=== PATIENT | female | born 1940 | race Caucasian/White ===

== ENCOUNTER 2019-07-27 14:34 | Inpatient (IN) | payer OTHER ==
--- NOTE | 2019-07-27 15:21 | PDOC ---
History of Present Illness - General Chief Complaint: Abnormal Lab Results (Outside) Stated Complaint: FOLLOW UP Time Seen by Provider: 07/27/19 15:21 - History of Present Illness Initial Comments: 07/27/19 15:56 79 year old woman with a history of HTN, recent L knee replacement (07/14/19) placed on coumadin post op who presents with reported elevated INR to 15. The patient denies any symptoms of chest pain, shortness fof breath, fevers, recent falls, trauma, easy bruising or any concerning symptoms. She was on 4mg of coumadin QHS since 07/14/19 and it was reduced to 3mg QHS 3 days ago. The patient has a caregivers homecare that comes and checks her INR and it was noted to be elevated yesterday. SHe has no other complaints. Surgeon: Dr. Chen at [facility] ROS GENERAL/CONSTITUTIONAL: No fever or chills. No weakness. HEAD, EYES, EARS, NOSE AND THROAT: No sore throat. CARDIOVASCULAR: No chest pain or shortness of breath RESPIRATORY: No cough, wheezing, or hemoptysis. GASTROINTESTINAL: No nausea, vomiting, diarrhea or constipation. GENITOURINARY: No dysuria, frequency, or change in urination. MUSCULOSKELETAL: No joint or muscle swelling or pain. No neck or back pain. SKIN: No rash NEUROLOGIC: No headache, vertigo, loss of consciousness, or change in strength/ sensation. PE GENERAL: Awake, alert, and fully oriented, in no acute distress HEAD: No signs of trauma, normocephalic, atraumatic EYES: EOMI, sclera anicteric, conjunctiva clear ENT: oropharynx clear without exudates. Moist mucosa NECK: Normal ROM, supple LUNGS: No distress, speaks full sentences, clear to auscultation bilaterally HEART: Regular rate and rhythm, normal S1 and S2, no murmurs, rubs or gallops, peripheral pulses normal and equal bilaterally. ABDOMEN: Soft, nontender. No guarding, no rebound. No masses EXTREMITIES : + L knee surgical incision warm to touch, erythematous, no dehiscence of wound, no purulent drainage NEUROLOGICAL: Cranial nerves II through XII grossly intact. Normal speech, no focal sensorimotor deficits SKIN: Warm, Dry, normal turgor, no rashes or lesions noted MDM DDX including but not limited to: supratherapeutic INR post-op infection ED Course: Patient with leukocytosis, evaluate for infection, likely 2/2 surgical site as it is warm and erythematous Will contact operating surgeon, if risk of infection, join may require surgical washout r/o pna vs uti INR > [address] Chen's ([phone]) covering physician was contacted, recommended ESR and CRP and will call back Call placed to Dr. Chen who feels that wbc, and warmth are within expectations for 2 weeks post-op. Recommends normalization of INR then transfer to S, otherwise our Orthopedics team can evaluate the patient. Does not recommend antibiotics at this time. We will page our Orthopedics Consult and seek recommendations regarding further care Discussed case with Orthopedics, who agree that these changes are expected post- op and will come evaluate the patient Plan for admission for INR normalization Narda Lilly, PGY2 Emergency Medicine 07/27/19 18:46 07/27/19 18:46 Past History - Past Medical History Allergies/Adverse Reactions: Allergies Allergy/AdvReac Type Severity Reaction Status Date / Time aspirin Allergy Severe Vomiting Verified 07/27/19 17:45 Penicillins Allergy Severe Rash Verified 07/27/19 17:45 NSAIDS (Non-Steroidal Allergy Intermediate RECTAL Verified 07/27/19 17:45 Anti-Inflamma BLEEDING azithromycin [From Zithromax] Allergy Mild STOMACH Verified 07/27/19 17:45 UPSET Home Medications: Ambulatory Orders RX: Amlodipine Besylate [Norvasc -] 5 mg PO DAILY 02/09/13 RX: Carvedilol 25 mg PO BID 02/09/13 RX: Lisinopril/Hydrochlorothiazide [Zestoretic 20-25 Tablet] 1 each PO BID 02/09 RX: Doxazosin Mesylate 8 mg PO DAILY 07/27/19 RX: Pantoprazole Sodium 40 mg PO DAILY 07/27/19 Anemia: No Asthma: No Cancer: No Cardiac Disorders: No CVA: No COPD: No CHF: No Dementia: No Diabetes: No GI Disorders: No Disorders: No HTN: Yes Hypercholesterolemia: No Liver Disease: No Seizures: No Thyroid Disease: No - Surgical History Abdominal Surgery: Yes Appendectomy: Yes Orthopedic Surgery: Yes (RIGHT KNEE ARTHROSCOPY) - Immunization History Immunization Up to Date: No - Psycho Social/Smoking Cessation Hx Smoking History: Never smoked Have you smoked in the past 12 months: No Information on smoking cessation initiated: No Hx Alcohol Use: No Drug/Substance Use Hx: No Substance Use Type: None Hx Substance Use Treatment: No *Physical Exam - Vital Signs Last Vital Signs Temp Pulse Resp BP Pulse Ox 98.1 F 80 16 95/47 L 95 07/27/19 14:51 07/27/19 14:51 07/27/19 14:51 07/27/19 14:51 07/27/19 14:51 Vital Signs - Vital Signs #1 Blood Pressure: 135/57 BP Location: Left Arm ED Treatment Course - LABORATORY CBC & Chemistry Diagram: 07/27/19 15:48 07/27/19 15:48 Discharge - Discharge Information Condition: Stable - Follow up/Referral - Patient Discharge Instructions - Post Discharge Activity
[2019-07-27] MEDS ORDERED: SODIUM CHLORIDE 1,000 ML IV SCH (15:45)
[2019-07-27 15:58] LABS: BASO % 0.3 % (0-2.0); EOS % 1.3 % (0-4.5); HEMATOCRIT 35.9 % (32.4-45.2); HEMOGLOBIN 11.5 GM/dL (10.7-15.3); LYMPH % 4.3 % (8-40); MCH 29.5 pg (25.7-33.7); MCHC 32.1 g/dl (32.0-36.0); MEAN CELL VOLUME 91.8 fl (80-96); MEAN PLT VOLUME 8.7 fl (7.5-11.1); MONO % 4.2 % (3.8-10.2); NEUT % 89.9 % (42.8-82.8); PLATELET COUNT 502 K/MM3 (134-434); RBC 3.91 M/mm3 (3.60-5.2); RDW 14.8 % (11.6-15.6); WHITE BLOOD COUNT 15.6 K/mm3 (4.0-10.0)
[2019-07-27 16:12] LABS: ACTIVATED PTT 73.4 SECONDS (25.2-36.5)
[2019-07-27 16:15] LABS: INR > 15.00 (0.83-1.09)
[2019-07-27] MEDS ORDERED: PHYTONADIONE 5 MG TABLET PO ONE (16:16)
[2019-07-27 16:24] LABS: ALBUMIN 3.1 g/dl (3.4-5.0); BILIRUBIN,TOTAL 0.4 mg/dL (0.2-1); BLOOD UREA NITROGEN 17.5 mg/dL (7-18); CALCIUM 8.6 mg/dL (8.5-10.1); CREATININE 1.1 mg/dL (0.55-1.3); POTASSIUM 3.7 mmol/L (3.5-5.1); TOT PROT 6.6 g/dl (6.4-8.2)
[2019-07-27] MEDS ORDERED: PHYTONADIONE 5 MG TABLET ONE (16:25)
[2019-07-27 16:27] LABS: PLATELET ESTIMATE INCREASED
--- NOTE | 2019-07-27 16:49 | PDOC ---
Attending Attestation - Resident Resident Name: Narda Lilly - ED Attending Attestation I have performed the following: I have examined & evaluated the patient, The case was reviewed & discussed with the resident, I agree w/resident's findings & plan, Exceptions are as noted - HPI HPI: 07/27/19 16:53 79y F recent history of L total knee in early jun - but she states that she was started on Coumadin during her hospitalization, she has been having regular INR checks and had her Coumadin dosage reduced at some point, over she was told that her INR was significantly elevated and to go to the ER to be evaluated. The patient denies any history of bleeding including rectal bleeding, vaginal bleeding. Patient endorses a very mild headache, states that she thinks she is just hungry she denies any associated vision changes, focal numbness, tingling, weakness. she denies any chest pain, shortness of breath, dyspnea exertion, abdominal pain , nausea, vomiting. Patient has no history of coagulopathy, DVTs or PEs. General GENERAL: The patient is awake, alert, and fully oriented, Nontoxic - in no acute distress. HEAD: Normocephalic, atraumatic. EYES: extraocular movements intact, sclera anicteric, conjunctiva clear. Pupils 2mm and symmetric ENT: Normal voice, Moist mucous membranes. NECK: Normal range of motion, supple ABDOMEN: Soft, nontender, No guarding, no rebound. No CVA tenderness EXTREMITIES: Normal range of motion, no edema. Warmth noted on the R knee with mild ecchymosis/erythema, no significant induration noted. No discharge noted. NEUROLOGICAL: No facial assymetry, Normal speech, moving all 4 extremity spontaneously and symmetrically PSYCH: Normal mood, normal affect. SKIN: Warm, Dry, normal turgor, We will treat the patient's elevated INR with vitamin K As patient has a mild headache will obtain a CT of the head to screen for hemorrhage Will discuss with the patient's surgeon regarding the warmth of her leg and possibility of infection - Physicial Exam PE: 07/28/19 02:25 see above - Medical Decision Making 07/27/19 18:[address] Chen - recommendd treating the pts elevate INR - and having our orthopodic consultation eval the knee to see if it is infected, but as pt is not havin significant pain/swelling he tihnks this may just be normal post operative course (incluing elevated CRP). He would also not recommend starting antibiotics at this time. will admit for further management of elevated INR
[2019-07-27 16:51] LABS: EPI CELLS 7.5 /HPF (0-5/HPF); HYALINE CASTS 53 /lpf (0-8); PH,URINE 5.5 (5.0-8.0); URINE APPEARANCE CLOUDY; URINE BACTERIA 2.1 /hpf (NEGATIVE); URINE BILIRUBIN NEGATIVE (NEGATIVE); URINE COLOR YELLOW; URINE GLUCOSE (UA) NEGATIVE (NEGATIVE); URINE KETONE TRACE (NEGATIVE); URINE LEUK ESTERASE TRACE (NEGATIVE); URINE NITRITE NEGATIVE (NEGATIVE); URINE PROTEIN 2+ (NEGATIVE); URINE WBC 13 /hpf (0-5)
[2019-07-27] MEDS ORDERED: ACETAMINOPHEN 1000 MG/100 ML VIAL (NON FORMULARY) IVPB ONE (17:23)
[2019-07-27 17:32] LABS: URINE RBC 10.6 /hpf (0-4)
[2019-07-27] MEDS ORDERED: ACETAMINOPHEN INJECTION 100 ML IVPB ONE (17:37)
[2019-07-27 18:11] LABS: ERYTHROCYTE SEDIMENTATION RATE 34 mm/hr (0-30)
--- NOTE | 2019-07-27 19:11 | PN ---
Teaching Attending Note Name of Resident: Jennifer Yip ATTENDING PHYSICIAN STATEMENT I saw and evaluated the patient. I reviewed the resident's note and discussed the case with the resident. I agree with the resident's findings and plan as documented. SUBJECTIVE: Patient is a 79 year old woman with a PMH of Penicillin allergy, HTN, and Recent left knee replacement (07/14/19) on coumadin postop who presents with elevated INR of 15. The patient denies any symptoms of chest pain, shortness fof breath, fevers, recent falls, trauma, easy bruising or any concerning symptoms. She was on 4 mg of coumadin q HS since 07/14/19 and it was reduced to 3 mg q HS 3 days ago. The patient has a day care home mother that comes and checks her INR and it was noted to be elevated yesterday. Patient denies any history of bleeding including rectal bleeding, vaginal bleeding. Denies vision changes, focal numbness, tingling, weakness, abdominal pain, nausea, vomiting, diarrhea or dysuria. Patient has no history of coagulopathy, DVTs or PEs. Denies tobacco , alcohol or illicit drug use. No recent travel. OBJECTIVE: Alert Vital Signs Period Temp Pulse Resp BP Sys/Almanzar Pulse Ox Last 24 Hr 98.1 F 76-80 16-16 95-136/47-96 95-97 HEENT: No Jaundice, eye redness or discharge, PERRLA, EOMI. Normocephalic, atraumatic. External ears are normal and hearing is grossly intact. No nasal discharge. Neck: Supple, nontender. No palpable adenopathy or thyromegaly. No JVD Chest: Good effort. Clear to auscultation and percussion. Heart: Regular. No S3, rub or murmur Abdomen: Not distended, soft, nontender and no HSM. No rebound or guarding. Normal bowel sounds. Ext: Peripheral pulses intact. Warmth over right knee and area of erythema. Leg edema. Skin: Warm and dry. No petechiae, rash or ecchymosis. Neuro: Alert. Oriented x3. CN 2-12 grossly intact. Sensation grossly intact in all four extremities and DTR are symmetric. Psych: Appropriate mood and affect. Good insight. Home Medications Medication Instructions Recorded Amlodipine Besylate [Norvasc -] 5 mg PO DAILY 02/09/13 Carvedilol 25 mg PO BID 02/09/13 Lisinopril/Hydrochlorothiazide 1 each PO BID 02/09/13 [Zestoretic 20-25 Tablet] Doxazosin Mesylate 8 mg PO DAILY 07/27/19 Pantoprazole Sodium 40 mg PO DAILY 07/27/19 Abnormal Lab Results 07/27/19 07/27/19 07/27/19 15:48 15:48 15:48 WBC 15.6 H Plt Count 502 H D Absolute Neuts (auto) 14.0 H Neutrophils % 89.9 H Neutrophils % (Manual) 87.0 H Lymphocytes % 4.3 L D Lymphocytes % (Manual) 4.0 L Monocytes % (Manual) 3 L ESR 34 H PT with INR 185.10 H INR > 15.00 H* PTT (Actin FS) 73.4 H Sodium 134 L Anion Gap 6 L Random Glucose 124 H AST 14 L C-Reactive Protein 9.2 H Albumin 3.1 L Urine Protein Urine Ketones 07/27/19 16:26 WBC Plt Count Absolute Neuts (auto) Neutrophils % Neutrophils % (Manual) Lymphocytes % Lymphocytes % (Manual) Monocytes % (Manual) ESR PT with INR INR PTT (Actin FS) Sodium Anion Gap Random Glucose AST C-Reactive Protein Albumin Urine Protein 2+ H Urine Ketones Trace H ASSESSMENT AND PLAN: 1. Supratherapeutic INR - No evidence of acute bleeding. Coumadin being held and got 5 mg of Vitamin K PO. Patient seen by Ortho an xray is recommended but no antibiotics at this time. Will monitor WBC and INR. CXR shows cardiomegaly and hilar prominence. Get ECHO. EKG shows NSR, LAE, LVH and nonspecific ST abnormality. No acute abnormality on head CT. Will continue comprehensive care for all of patients comorbid conditions. 2. Hypoalbuminemia - Possibly due to combined effects of proteinuria, malnutrition and inflammation associated with comorbid chronic conditions. Will ensure adequate dietary protein intake and also consult sales and catering coordinator. 3. Obesity Counseled on the risks associated with obesity. Will provide patient all the necessary assistance, counseling and positive reinforcement to facilitate weight loss. Consult sales and catering coordinator. 4. Hypertension - Restart suitable outpatient antihypertensive drugs when clinically appropriate. Revise regimen to ensure [id number] excellent BP control and prenatal genetic counselor patient on the injurious effects of uncontrolled hypertension. Nonpharmacologic measures to control hypertension like weight loss , salt restriction and exercise discussed. Importance of adherence to treatment regimen and attainment of normotension emphasized. 5. DVT prophylaxis - Supratherapeutic coumadin 6. Advance directives - Full code
--- NOTE | 2019-07-27 19:38 | CONSULT ---
Consult - text type - Consultation Consultation Note: ORTHOPEDIC SURGERY CONSULTATION NOTE Department of Orthopedic Surgery HISTORY OF PRESENT ILLNESS Ms. Garner is a 79 year old female with a pmhx of HTN who presents to [facility] ER s /p left total knee replacement [address] Thompson at [facility]; She is here today with a high INR > 15 after being discharged with coumadin post operatively. The orthopedic service was consulted to evaluate wound. The patient denies any injury. The patient states she has had a decrease in swelling and erythema since the surgery. Denies any other injuries. Denies numbness, tingling or other constitutional complaints. Denies fever/chills or drainage of wound; Denies SOB, CP or CANTU. Denies tobacco use, drug use, alcohol abuse. The patient lives with family and uses no assistive devices at baseline. FAMILY HISTORY non-contributory REVIEW OF SYMPTOMS A twelve-point review of systems was performed and was negative except as noted in HPI. PHYSICAL EXAM Constitutional: Alert and oriented to person, place, and time. Appears well- developed and well-nourished. No acute distress, appropriate mood and affect. Left Lower Extremity: Skin warm, dry, and intact; no lesions, rashes or ulcers noted. The incision is intact and healing. There is mild incisional erythema with no drainage or signs of active infection. There are no signs or symptoms of septic joint. Muscle mass equal and symmetric to contralateral side. No atrophy noted. No masses or significant effusions noted. No tenderness to palpation all joints; LROM 0-90 degres of the left knee secondary to stiffness due to knee replacement 2 weeks ago; She has no pain in her left knee with ROM; nontender throughout rest of extremity. No cords or calf tenderness; No significant calf/ankle edema. Full passive and active ROM of hip and ankle, free from pain. Joints stable with no pathologic laxity. EHL/TA/GS motor intact ; SILT distally; 2+ DP pulses; Cap refill brisk. Tone and reflexes normal. Social History Smoking history Never smoked Hx Alcohol Use No Allergies Allergy/AdvReac Type Severity Reaction Status Date / Time aspirin Allergy Severe Vomiting Verified 07/27/19 17:45 Penicillins Allergy Severe Rash Verified 07/27/19 17:45 NSAIDS (Non-Steroidal Allergy Intermediate RECTAL Verified 07/27/19 17:45 Anti-Inflamma BLEEDING azithromycin [From Zithromax] Allergy Mild STOMACH Verified 07/27/19 17:45 UPSET Vital Signs (last) Temp Pulse Resp BP Pulse Ox 98.1 F 76 16 135/57 L 97 07/27/19 14:51 07/27/19 18:40 07/27/19 18:40 07/27/19 18:50 07/27/19 18:40 Intake and Output 07/25/19 07/26/19 07/27/19 23:59 23:59 23:59 Other: Weight 165 lb Height 5 ft 1 in Body Mass Index (BMI) 31.1 Weight Measurement Method Est/Stated by Patient Laboratory 07/27/19 15:48 07/27/19 15:48 PT with INR 185.10 SEC (9.7-13.0) H 07/27/19 15:48 PTT (Actin FS) 73.4 SECONDS (25.2-36.5) H 07/27/19 15:48 IMAGING Left knee X-ray Pending ASSESSMENT AND PLAN Ms. Garner is a 79 year old female presenting s/p left total knee replacement approximately 2 weeks ago with an INR of > 15. We have agreed on the following plan: Pain control DVT ppx WBAT/Physical therapy Continue medical management Follow up radiographs of the left knee Follow up with Dr. Thompson (original orthopedic surgeon) upon discharge Will follow
--- NOTE | 2019-07-27 19:43 | HP ---
CHIEF COMPLAINT: Supratherapeutic INR PCP: None Orthopedic Surgeon: Dr. Chen ([facility]) Corporate Analyst: Dr. Ross HISTORY OF PRESENT ILLNESS: Ms. Garner is a 79 with PMH of HTN and recent L knee replacement on (07/14/19 ) who presents with supratherapeutic INR. Pt had L knee replacement [address] Chen at [facility]. Surgery went well with no perioperative complications and pt has been recovering well with no complaints. She was placed on 4mg coumadin post-op (for unknown reasons) and was arranged to have a VNS to check her INR. Pt's coumadin was decreased to 3mg 3 days ago. Pt's INR was reportedly elevated yesterday and she was told to come to the nearest ER. On arrival to ED, her INR was >15. Pt denies any falls, trauma, bleeding or easy bruising. She denies a hx of coagulopathy, DVs, or PEs. Has never been placed on warfarin or any AC's in the past. Pt has been recovering well from surgery and is able to ambulate with only mild "tightnes" in her knee. She states that swelling from the surgery has been improving. She denies ay chest pain, SOB, fevers, chills, nausea, vomiting. Recent Travel: denies PAST MEDICAL HISTORY: As per HPI PAST SURGICAL HISTORY: l knee replacement Social History: Smoking: denies Alcohol: denies Drugs: denies Allergies aspirin Allergy (Severe, Verified 07/27/19 17:45) Vomiting Penicillins Allergy (Severe, Verified 07/27/19 17:45) Rash NSAIDS (Non-Steroidal Anti-Inflamma Allergy (Intermediate, Verified 07/27/19 17: 45) RECTAL BLEEDING azithromycin [From Zithromax] Allergy (Mild, Verified 07/27/19 17:45) STOMACH UPSET HOME MEDICATIONS: Home Medications Medication Instructions Recorded Amlodipine Besylate [Norvasc -] 5 mg PO DAILY 02/09/13 Carvedilol 25 mg PO BID 02/09/13 Lisinopril/Hydrochlorothiazide 1 each PO BID 02/09/13 [Zestoretic 20-25 Tablet] Doxazosin Mesylate 8 mg PO DAILY 07/27/19 Pantoprazole Sodium 40 mg PO DAILY 07/27/19 REVIEW OF SYSTEMS CONSTITUTIONAL: Absent: fever, chills, diaphoresis, generalized weakness, malaise, loss of appetite, weight change HEENT: Absent: rhinorrhea, nasal congestion, throat pain, throat swelling, difficulty swallowing, mouth swelling, ear pain, eye pain, visual changes CARDIOVASCULAR: Absent: chest pain, syncope, palpitations, irregular heart rate, lightheadedness , peripheral edema RESPIRATORY: Absent: cough, shortness of breath, dyspnea with exertion, orthopnea, wheezing, stridor, hemoptysis GASTROINTESTINAL: Absent: abdominal pain, abdominal distension, nausea, vomiting, diarrhea, constipation, melena, hematochezia GENITOURINARY: Absent: dysuria, frequency, urgency, hesitancy, hematuria, flank pain, genital pain MUSCULOSKELETAL: Absent: myalgia, arthralgia, joint swelling, back pain, neck pain SKIN: Absent: rash, itching, pallor HEMATOLOGIC/IMMUNOLOGIC: Absent: easy bleeding, easy bruising, lymphadenopathy, frequent infections ENDOCRINE: Absent: unexplained weight gain, unexplained weight loss, heat intolerance, cold intolerance NEUROLOGIC: Absent: headache, focal weakness or paresthesias, dizziness, unsteady gait, seizure, mental status changes, bladder or bowel incontinence PSYCHIATRIC: Absent: anxiety, depression, suicidal or homicidal ideation, hallucinations. PHYSICAL EXAMINATION Vital Signs - 24 hr 07/27/19 07/27/19 07/27/19 14:51 18:40 18:50 Temperature 98.1 F Pulse Rate 80 Pulse Rate [ 76 Right Radial] Respiratory 16 16 Rate Blood Pressure 95/47 L Blood Pressure 135/57 L [#1] Blood Pressure 136/96 [Left Arm] O2 Sat by Pulse 95 97 Oximetry (%) GENERAL: Awake, alert, and fully oriented, in no acute distress. HEAD: Normal with no signs of trauma. EYES: Pupils equal, round and reactive to light, extraocular movements intact, sclera anicteric, conjunctiva clear. No lid lag. EARS, NOSE, THROAT: Ears normal, nares patent, oropharynx clear without exudates. Moist mucous membranes. NECK: Normal range of motion, supple without lymphadenopathy, JVD, or masses. LUNGS: Breath sounds equal, clear to auscultation bilaterally. No wheezes, and no crackles. No accessory muscle use. HEART: Regular rate and rhythm, normal S1 and S2 without murmur, rub or gallop. ABDOMEN: Soft, nontender, not distended, normoactive bowel sounds, no guarding, no rebound, no masses. No hepatomegaly or splenomegaly. MUSCULOSKELETAL: Normal range of motion at all joints. No bony deformities or tenderness. No CVA tenderness. UPPER EXTREMITIES: 2+ pulses, warm, well-perfused. No cyanosis. No clubbing. No peripheral edema. LOWER EXTREMITIES: 2+ pulses, warm, well-perfused. No calf tenderness. Trace peripheral edema. Large, well-healed surgical scar on L knee with mild surrounding erythema. Mild TTP. NEUROLOGICAL: Cranial nerves II-XII intact. Normal speech. Normal gait. PSYCHIATRIC: Cooperative. Good eye contact. Appropriate mood and affect. SKIN: Warm, dry, normal turgor, no rashes or lesions noted, normal capillary refill. Laboratory Results - last 24 hr CBC, BMP 07/27/19 15:48 07/27/19 15:48 Urine Test Results Urine Color Yellow Urine Appearance Cloudy Urine pH 5.5 (5.0-8.0) D Ur Specific [place] 1.018 (1.010-1.035) Urine Protein 2+ (NEGATIVE) H Urine Glucose (UA) Negative (NEGATIVE) Urine Ketones Trace (NEGATIVE) H Urine Blood Negative (NEGATIVE) Urine Nitrite Negative (NEGATIVE) Urine Bilirubin Negative (NEGATIVE) Ur Leukocyte Esterase Trace (NEGATIVE) ASSESSMENT/PLAN: Ms. Garner is a 79 with PMH of HTN and recent L knee replacement on (07/14/19 ) who presents with supratherapeutic INR. #Supratherapeutic INR INR > 15 on arrival to ED. Pt given 5mg vitamin K >>Orthopedic surgery at [facility] was contacted by ED ([phone])/ Dr. Chen is out of town, spoke to colleagues. Unknown why pt was placed on coumadin. State that leukocytosis and mild erythema of knee are within expectations for 2 weeks post-op. Recommend normalization of INR and f/u with [facility]. Did not recommend antibiotics at this time. >>Dr. Matthews ([facility] orthopedic) evaluated pt in ED and agrees that this is normal post-op. Will demarcate erythema and monitor for any worsening of erythema. May give abx to cover for possible cellulitis. No need for any urgent orthopedic intervention at this time. Give 10mg vitamin K Monitor INR daily. Hold coumadin, bridge to levaquin Fall precautions CT head: no acute hemorrhage or intracranial pathology #HTN Cont pt's home meds: amlodipine 10mg, carvedilol 25mg BID, lisinopril/hctz 20 -25 BID, doxazosin 8mg #FEN No standing fluids necessary Sodium controlled diet #DVT ppx SCDs #Dispo Monitor on med-surg ATTENDING PHYSICIAN STATEMENT I saw and evaluated the patient. I reviewed the resident's note and discussed the case with the resident. I agree with the resident's findings and plan as documented. SUBJECTIVE: OBJECTIVE: ASSESSMENT AND PLAN:
[2019-07-27] MEDS ORDERED: [UNRECOGNIZED DRUG - OTHER] PO SCH (22:00)
[2019-07-27] MEDS ORDERED: HYDROCHLOROTHIAZIDE PO SCH (22:00)
[2019-07-27] MEDS ORDERED: LISINOPRIL PO SCH (22:00)
[2019-07-27] MEDS: LISINOPRIL 20 MG TABLET (FP) PO SCH (23:12)
[2019-07-27] MEDS: CARVEDILOL 25 MG TABLET (FP) PO SCH (23:12)
[2019-07-27] MEDS: HYDROCHLOROTHIAZIDE 25 MG TABLET (FP) PO SCH (23:12)
[2019-07-28] MEDS: ACETAMINOPHEN 325 MG TABLET (FP) PO PRN ×2 (02:03→13:25)
[2019-07-28 02:33] VITALS: BMI 31.7
[2019-07-28 07:42] LABS: BASO % 0.7 % (0-2.0); HEMATOCRIT 32.5 % (32.4-45.2); HEMOGLOBIN 10.5 GM/dL (10.7-15.3); LYMPH % 9.2 % (8-40); MCH 29.5 pg (25.7-33.7); MCHC 32.3 g/dl (32.0-36.0); MEAN CELL VOLUME 91.3 fl (80-96); MEAN PLT VOLUME 8.6 fl (7.5-11.1); NEUT % 82.1 % (42.8-82.8); PLATELET COUNT 441 K/MM3 (134-434); RBC 3.56 M/mm3 (3.60-5.2); RDW 14.8 % (11.6-15.6); WHITE BLOOD COUNT 11.7 K/mm3 (4.0-10.0)
[2019-07-28 07:47] LABS: PROTHROMBIN TIME (PATIENT) 49.3 SEC (9.7-13.0)
--- NOTE | 2019-07-28 08:18 | PN ---
Progress Note (short form) - Note Progress Note: ORTHOPEDIC SURGERY PROGRESS NOTE Department of Orthopedic Surgery SUBJECTIVE No acute events overnight. No complaints currently. Denies fever, chills, chest pain, shortness of breath, or calf pain. No nausea or vomiting. Tolerating oral intake. PHYSICAL EXAMINATION General: Alert, oriented, cooperative and no distress. Left Lower Extremity: Skin warm, dry, and intact; no lesions, rashes or ulcers noted. The incision is intact and healing. There is mild incisional erythema with no drainage or signs of active infection. There are no signs or symptoms of septic joint. Muscle mass equal and symmetric to contralateral side. No atrophy noted. No masses or significant effusions noted. No tenderness to palpation all joints; LROM 0-90 degres of the left knee secondary to stiffness due to knee replacement 2 weeks ago; She has no pain in her left knee with ROM; nontender throughout rest of extremity. No cords or calf tenderness; No significant calf/ankle edema. Full passive and active ROM of hip and ankle, free from pain. Joints stable with no pathologic laxity. EHL/TA/GS motor intact ; SILT distally; 2+ DP pulses; Cap refill brisk. Tone and reflexes normal. DVT Exam: No evidence of DVT seen on physical exam; No cords or calf tenderness ; No significant calf/ankle edema. Intake & Output 07/26/19 07/27/19 07/28/19 23:59 23:59 23:59 Intake Total 200 200 Balance 200 200 Intake: Oral 200 200 Other: Voiding Method Toilet # Unmeasured Voids Void 1 1 Weight 169 lb 3.2 oz Height 5 ft 1.2 in Body Mass Index (BMI) 31.7 Weight Measurement Method Standing Scale Weight Measurement Method Est/Stated by Patient Active Medications Generic Name Dose Route Start Last Admin Trade Name Freq PRN Reason Stop Dose Admin Acetaminophen 650 mg 07/28/19 01:53 07/28/19 02:03 Tylenol - PO 650 mg Q6H PRN Administration PAIN LEVEL 6-10 Amlodipine Besylate 5 mg 07/28/19 10:00 Norvasc - PO DAILY JUDE Carvedilol 25 mg 07/27/19 22:00 07/27/19 23:12 Coreg - PO 25 mg BID JUDE Administration Doxazosin Mesylate 8 mg 07/28/19 10:00 Cardura - PO DAILY JUDE Hydrochlorothiazide 25 mg 07/27/19 22:00 07/27/19 23:12 Hctz - PO 25 mg BID JUDE Administration Lisinopril 20 mg 07/27/19 22:00 07/27/19 23:12 Prinivil PO 20 mg BID JUDE Administration Pantoprazole Sodium 40 mg 07/28/19 10:00 Protonix - PO DAILY JUDE Vital Signs (last) Temp Pulse Resp BP Pulse Ox 97.6 F 70 20 146/66 98 07/28/19 04:55 07/28/19 04:55 07/28/19 04:55 07/28/19 04:55 07/27/19 23:00 Laboratory (coagulation) PT with INR 49.30 SEC (9.7-13.0) H 07/28/19 06:43 IMAGING Radiographs of the left knee were reviewed; No fractures, dislocations, or evidence of loosening. Implants are in adequate positioning. ASSESSMENT AND PLAN Ms. Garner is a 79 year old female presenting s/p left total knee replacement approximately 2 weeks ago, with an INR of > 15, now at 4.12. No signs of septic joint or infection. We have agreed on the following plan: Pain control DVT ppx WBAT/Physical therapy Continue medical management Physical Therapy; WBAT LLE Follow up with Dr. Thompson (original orthopedic surgeon) upon discharge Dispo planning
[2019-07-28 08:32] LABS: ALBUMIN 2.8 g/dl (3.4-5.0); BILIRUBIN,TOTAL 0.4 mg/dL (0.2-1); BLOOD UREA NITROGEN 17.2 mg/dL (7-18); CALCIUM 8.4 mg/dL (8.5-10.1); POTASSIUM 3.9 mmol/L (3.5-5.1); TOT PROT 5.9 g/dl (6.4-8.2)
[2019-07-28 08:37] LABS: INR 4.12 (0.83-1.09)
[2019-07-28] MEDS ORDERED: PT OWN MED DRAWER 7, Y5N ONE (09:43)
[2019-07-28] MEDS: HYDROCHLOROTHIAZIDE 25 MG TABLET (FP) PO SCH (09:44)
[2019-07-28] MEDS: CARVEDILOL 25 MG TABLET (FP) PO SCH (09:44)
[2019-07-28] MEDS: LISINOPRIL 20 MG TABLET (FP) PO SCH (09:44)
[2019-07-28] MEDS ORDERED: PANTOPRAZOLE 40 MG TABLET (FP) PO SCH (10:00)
[2019-07-28] MEDS ORDERED: amLODIPine BESYLATE 5 MG TABLET (FP) PO SCH (10:00)
[2019-07-28] MEDS ORDERED: DOXAZOSIN MESYLATE 8 MG TABLET PO SCH (10:00)
[2019-07-28] MEDS ORDERED: HYDROCHLOROTHIAZIDE 25 MG TABLET (FP) PO SCH (10:00)
[2019-07-28] MEDS ORDERED: LISINOPRIL 20 MG TABLET (FP) PO SCH (10:00)
[2019-07-28] MEDS ORDERED: DOXAZOSIN MESYLATE 4 MG TABLET PO SCH ×2 (10:50→13:00)
--- NOTE | 2019-07-28 11:52 | EKG ---
Test Reason : Blood Pressure : / mmHG Vent. Rate : 072 BPM Atrial Rate : 072 BPM P-R Int : 148 ms QRS Dur : 092 ms QT Int : 400 ms P-R-T Axes : 050 -19 -01 degrees QTc Int : 438 ms NORMAL SINUS RHYTHM POSSIBLE LEFT ATRIAL ENLARGEMENT LEFT VENTRICULAR HYPERTROPHY NONSPECIFIC ST ABNORMALITY ABNORMAL ECG WHEN COMPARED WITH ECG OF 14-JUN-2013 10:28, NO SIGNIFICANT CHANGE WAS FOUND Confirmed by ANUPAMA SUAREZ, REBEL ([id number]) on 07/28/2019 11:52:19 AM Referred By: Confirmed By:REBEL ALTMAN MD
[2019-07-28 14:19] VITALS: BP 127/59; PULSE 67; TEMP 98.3
--- NOTE | 2019-07-28 15:38 | PN ---
Teaching Attending Note Name of Resident: Sergio Reid ATTENDING PHYSICIAN STATEMENT I saw and evaluated the patient. I reviewed the resident's note and discussed the case with the resident. I agree with the resident's findings and plan as documented. SUBJECTIVE: Patient is feeling better with no acute distress, s/p right knee replacement on coumadin was sent to [facility] for having supratherapeutic INR. OBJECTIVE: Vital Signs Temperature 98.3 F 07/28/19 14:17 Pulse Rate 67 07/28/19 14:17 Respiratory Rate 20 07/28/19 14:17 Blood Pressure 127/59 L 07/28/19 14:17 O2 Sat by Pulse Oximetry (%) 96 07/28/19 09:00 GENERAL: The patient is awake, alert, and fully oriented, in no acute distress. HEAD: Normal with no signs of trauma. EYES: PERRL, extraocular movements intact, sclera anicteric, conjunctiva clear. ENT: Ears normal, oropharynx clear without exudates, moist mucous membranes. NECK: Trachea midline, full range of motion, supple. LUNGS: Breath sounds equal, clear to auscultation bilaterally, no wheezes, no crackles, no accessory muscle use. HEART: Regular rate and rhythm, S1, S2 without murmur, rub or gallop. ABDOMEN: Soft, nontender, nondistended, normoactive bowel sounds, no guarding, no rebound, no hepatosplenomegaly, no masses. EXTREMITIES: 2+ pulses, warm, well-perfused, right knee replacement x 2 weeks pos op, mildly erythematous from sx. no swelling. NEUROLOGICAL: Cranial nerves II through XII grossly intact. Normal speech, gait not observed. PSYCH: Normal mood, normal affect. SKIN: Warm, dry, normal turgor, CBCD WBC 11.7 K/mm3 (4.0-10.0) H 07/28/19 06:43 RBC 3.56 M/mm3 (3.60-5.2) L 07/28/19 06:43 Hgb 10.5 GM/dL (10.7-15.3) L 07/28/19 06:43 Hct 32.5 % (32.4-45.2) 07/28/19 06:43 MCV 91.3 fl (80-96) 07/28/19 06:43 MCHC 32.3 g/dl (32.0-36.0) 07/28/19 06:43 RDW 14.8 % (11.6-15.6) 07/28/19 06:43 Plt Count 441 K/MM3 (134-434) H 07/28/19 06:43 MPV 8.6 fl (7.5-11.1) 07/28/19 06:43 CMP Sodium 137 mmol/L (136-145) 07/28/19 06:43 Potassium 3.9 mmol/L (3.5-5.1) 07/28/19 06:43 Chloride 99 mmol/L (98-107) 07/28/19 06:43 Carbon Dioxide 32 mmol/L (21-32) 07/28/19 06:43 Anion Gap 7 MMOL/L (8-16) L 07/28/19 06:43 BUN 17.2 mg/dL (7-18) 07/28/19 06:43 Creatinine 1.0 mg/dL (0.55-1.3) 07/28/19 06:43 Random Glucose 94 mg/dL (74-106) 07/28/19 06:43 Calcium 8.4 mg/dL (8.5-10.1) L 07/28/19 06:43 Total Bilirubin 0.4 mg/dL (0.2-1) 07/28/19 06:43 AST 8 U/L (15-37) L 07/28/19 06:43 ALT 14 U/L (13-61) 07/28/19 06:43 Alkaline Phosphatase 75 U/L (45-117) 07/28/19 06:43 Total Protein 5.9 g/dl (6.4-8.2) L 07/28/19 06:43 Albumin 2.8 g/dl (3.4-5.0) L 07/28/19 06:43 Current Medications Generic Name Dose Route Start Last Admin Trade Name Freq PRN Reason Stop Dose Admin Acetaminophen 650 mg 07/28/19 01:53 07/28/19 13:25 Tylenol - PO 650 mg Q6H PRN Administration PAIN LEVEL 6-10 Amlodipine Besylate 5 mg 07/28/19 10:00 07/28/19 09:44 Norvasc - PO 5 mg DAILY JUDE Administration Carvedilol 25 mg 07/27/19 22:00 07/28/19 09:44 Coreg - PO 25 mg BID JUDE Administration Doxazosin Mesylate 8 mg 07/28/19 13:00 07/28/19 13:06 Cardura - PO 8 mg DAILY JUDE Administration Hydrochlorothiazide 25 mg 07/27/19 22:00 07/28/19 09:44 Hctz - PO 25 mg BID JUDE Administration Lisinopril 20 mg 07/27/19 22:00 07/28/19 09:44 Prinivil PO 20 mg BID JUDE Administration Pantoprazole Sodium 40 mg 07/28/19 10:00 07/28/19 09:44 Protonix - PO 40 mg DAILY JUDE Administration Home Medications Medication Instructions Recorded Amlodipine Besylate [Norvasc -] 5 mg PO DAILY 02/09/13 Carvedilol 25 mg PO BID 02/09/13 Lisinopril/Hydrochlorothiazide 1 each PO BID 02/09/13 [Zestoretic 20-25 Tablet] Doxazosin Mesylate 8 mg PO DAILY 07/27/19 Pantoprazole Sodium 40 mg PO DAILY 07/27/19 INR: 3.47 ASSESSMENT AND PLAN: Patient is a 79yof with PMHx of HTN and recent L knee replacement on (07/14/19) who presents with supratherapeutic INR. #Supratherapeutic INR post op for right knee replacement at [facility] with # ([phone], works w/ Dr Antonio Chen), was called by the resident and patient was given coumadin for px, willdc patient home, will hold the night dose since was given Vit K, 5mg po, will repeat the level in a day and the Orthopedic team from Dr Verma office will decide what to start the patient on when she goes home. Patient can follow up with her ortho dr. can be discharged home.
--- NOTE | 2019-07-28 16:44 | DS ---
Physical Exam: SUBJECTIVE: Patient seen and examined OBJECTIVE: Vital Signs Period Temp Pulse Resp BP Sys/Almanzar Pulse Ox Last 24 Hr 97.6 F-98.8 F 67-76 16-20 127-146/55-96 96-98 PHYSICAL EXAM GENERAL: The patient is awake, alert, and fully oriented, in no acute distress. HEAD: Normal with no signs of trauma. EYES: sclera anicteric, conjunctiva clear. ENT: Ears normal, nares patent, oropharynx clear without exudates, moist mucous membranes. NECK: Trachea midline, full range of motion, supple. LUNGS: Breath sounds equal, clear to auscultation bilaterally, no wheezes, no crackles, no accessory muscle use. HEART: Regular rate and rhythm, S1, S2 without murmur, rub or gallop. ABDOMEN: Soft, nontender, nondistended, normoactive bowel sounds, no guarding, no rebound. EXTREMITIES: 2+ pulses, warm, well-perfused. LLE with mild enlargement compared to RLE. Left knee with longitudinal surgical incision, intact with overlying Dermabond. Mild erythema and swelling surrounding the incision; no warmth, no pain, no drainage. Popliteal fossa with small palpable cystic lesion, w/o erythema or pain. Sensation intact of LLE of medial and lateral leg. AROM ~90 degree flexion of knee NEUROLOGICAL: Normal speech. Ambulated to bathroom w/o assistive device PSYCH: Normal mood, normal affect. SKIN: Warm, dry, normal turgor, no rashes or lesions noted. LABS Laboratory Results - last 24 hr 07/27/19 07/27/19 07/27/19 15:48 15:48 16:26 WBC 15.6 H RBC 3.91 Hgb 11.5 Hct 35.9 MCV 91.8 MCH 29.5 MCHC 32.1 RDW 14.8 D Plt Count 502 H D MPV 8.7 Absolute Neuts (auto) 14.0 H Total Counted 100 Neutrophils % 89.9 H Neutrophils % (Manual) 87.0 H Band Neutrophils % 5.0 Lymphocytes % 4.3 L D Lymphocytes % (Manual) 4.0 L Monocytes % 4.2 Monocytes % (Manual) 3 L Eosinophils % 1.3 Eosinophils % (Manual) 1.0 Basophils % 0.3 Nucleated RBC % 0 Platelet Estimate Increased Platelet Comment No clumping noted ESR 34 H PT with INR INR Sodium 134 L Potassium 3.7 Chloride 98 Carbon Dioxide 30 Anion Gap 6 L BUN 17.5 Creatinine 1.1 Est GFR (CKD-EPI)AfAm 55.30 Est GFR (CKD-EPI)NonAf 47.71 Random Glucose 124 H Calcium 8.6 Total Bilirubin 0.4 AST 14 L ALT 15 Alkaline Phosphatase 84 C-Reactive Protein 9.2 H Total Protein 6.6 Albumin 3.1 L TSH Urine Color Yellow Urine Appearance Cloudy Urine pH 5.5 D Ur Specific [place] 1.018 Urine Protein 2+ H Urine Glucose (UA) Negative Urine Ketones Trace H Urine Blood Negative Urine Nitrite Negative Urine Bilirubin Negative Urine Urobilinogen 1.0 Ur Leukocyte Esterase Trace Urine WBC (Auto) 13 Urine RBC (Auto) 10.6 Urine Casts (Auto) 53 U Epithel Cells (Auto) 7.5 U Sm Round Cell (Auto) 10.6 Urine Bacteria (Auto) 2.1 07/28/19 07/28/19 07/28/19 06:43 06:43 06:43 WBC 11.7 H RBC 3.56 L Hgb 10.5 L Hct 32.5 MCV 91.3 MCH 29.5 MCHC 32.3 RDW 14.8 Plt Count 441 H MPV 8.6 Absolute Neuts (auto) 9.6 H Total Counted Neutrophils % 82.1 Neutrophils % (Manual) Band Neutrophils % Lymphocytes % 9.2 D Lymphocytes % (Manual) Monocytes % 6.0 Monocytes % (Manual) Eosinophils % 2.0 Eosinophils % (Manual) Basophils % 0.7 Nucleated RBC % 0 Platelet Estimate Platelet Comment ESR 30 PT with INR 49.30 H INR 4.12 H* Sodium Potassium Chloride Carbon Dioxide Anion Gap BUN Creatinine Est GFR (CKD-EPI)AfAm Est GFR (CKD-EPI)NonAf Random Glucose Calcium Total Bilirubin AST ALT Alkaline Phosphatase C-Reactive Protein Total Protein Albumin TSH Urine Color Urine Appearance Urine pH Ur Specific [place] Urine Protein Urine Glucose (UA) Urine Ketones Urine Blood Urine Nitrite Urine Bilirubin Urine Urobilinogen Ur Leukocyte Esterase Urine WBC (Auto) Urine RBC (Auto) Urine Casts (Auto) U Epithel Cells (Auto) U Sm Round Cell (Auto) Urine Bacteria (Auto) 07/28/19 06:43 WBC RBC Hgb Hct MCV MCH MCHC RDW Plt Count MPV Absolute Neuts (auto) Total Counted Neutrophils % Neutrophils % (Manual) Band Neutrophils % Lymphocytes % Lymphocytes % (Manual) Monocytes % Monocytes % (Manual) Eosinophils % Eosinophils % (Manual) Basophils % Nucleated RBC % Platelet Estimate Platelet Comment ESR PT with INR INR Sodium 137 Potassium 3.9 Chloride 99 Carbon Dioxide 32 Anion Gap 7 L BUN 17.2 Creatinine 1.0 Est GFR (CKD-EPI)AfAm 62.05 Est GFR (CKD-EPI)NonAf 53.54 Random Glucose 94 Calcium 8.4 L Total Bilirubin 0.4 AST 8 L ALT 14 Alkaline Phosphatase 75 C-Reactive Protein Total Protein 5.9 L Albumin 2.8 L TSH 0.04 L Urine Color Urine Appearance Urine pH Ur Specific [place] Urine Protein Urine Glucose (UA) Urine Ketones Urine Blood Urine Nitrite Urine Bilirubin Urine Urobilinogen Ur Leukocyte Esterase Urine WBC (Auto) Urine RBC (Auto) Urine Casts (Auto) U Epithel Cells (Auto) U Sm Round Cell (Auto) Urine Bacteria (Auto) HOSPITAL COURSE: Date of Admission:07/27/19 Date of Discharge: 07/28/19 79 with PMH of HTN and recent L knee replacement on (07/14/19) who presents with supratherapeutic INR. Pt had L knee replacement [address] Chen at [facility]. Was placed on coumadin postoperatively for DVT prophylaxis and obesity - - as per Ainsley PATEL(works with Dr Antonio Chen). Pt had INR >15, received vitamin K 5mg PO. Repeat INR ~4.12. Contacted Ainsley PATEL(, works w/ Dr Antonio Chen) who recommended holding warfarin upon discharge; home INR to be done on 07/29/19 and DVT ppx to be determined as outpt by April. Ortho([facility]) consulted to evaluate post-op wound erythema. Findings consistent with normal post-op findings, did not think infection, did not recommend abx. LLE duplex done for concern of LLE swelling. 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 Ortho was again consulted and said nothing to do, pt to fu w/ regular Ortho(April). Pt endorses +10yr ho Scherer's cyst. Had complaint of mild CANTU, so ED got CTH to r/o ICH. Neg for head bleed. Stable for discharge home Minutes to complete discharge: 20 Discharge Summary Problems reviewed: Yes Reason For Visit: SUPRATHERAPE[employer]IC [employer] NORMALIZED RATIO Condition: Stable - Instructions Diet, Activity, Other Instructions: You were evaluated in the hospital for an elevated INR value. You did not have any symptoms of increased pain, redness, or worsening range of motion in the knees. You were given vitamin K to lower your INR. An ultrasound study was done to evaluate for possibility of a Deep Venous Thrombus. You did not have a Deep Venous Thrombus. The ultrasound showed a popliteal cyst. Discussion with Ainsley PATEL, who is part of Dr Antonio Chen's team, decided that you are stable for discharge with close follow-up as outpatient.. Medications: - CHANGES: --STOP taking Warfarin[COUMADIN]. Your Orthopedics team from [facility] will re-check your INR on 07/29/19. They will make a decision on which medication would be appropriate as a substitute Please follow-up with the physician below in 1 week: - AMANDA Boles(Dr Antonio Chen's TOPOGRAPHIC COMPUTATOR): to re-evaluate your Left knee wound and discuss your DVT prophylaxis treatment Please seek immediate medical evaluation if you experience: - severe, worsening, pain in the knee - purulent drainage from the surgical wound - trouble breathing, shortness of breath, chest pain Referrals: AMANDA Licona [Other] (Has INR scheduled for 07/29/19) Disposition: HOME - Home Medications Comprehensive Discharge Medication List: Ambulatory Orders Amlodipine Besylate [Norvasc -] 5 mg PO DAILY 02/09/13 Carvedilol 25 mg PO BID 02/09/13 Lisinopril/Hydrochlorothiazide [Zestoretic 20-25 Tablet] 1 each PO BID 02/09/13 Doxazosin Mesylate 8 mg PO DAILY 07/27/19 Pantoprazole Sodium 40 mg PO DAILY 07/27/19 This patient is new to me today: Yes Date on this admission: 07/28/19 Emergency Visit: No Critical Care patient: No - Discharge Referral Referred to [facility] Med [facility] No ATTENDING PHYSICIAN STATEMENT I saw and evaluated the patient. I reviewed the resident's note and discussed the case with the resident. I agree with the resident's findings and plan as documented. SUBJECTIVE: OBJECTIVE: ASSESSMENT AND PLAN:
== END 2019-07-28 18:10 | disposition home or self-care (01) | DRG 813 ==
LOC: JER 14:34 → JERBED 19:11 → J5S 22:52
PROVIDERS: ADMIT Internal Medicine; ATTEND Internal Medicine
DX: D68.8 Other specified coagulation defects (principal); E46 Unspecified protein-calorie malnutrition; Z96.652 Presence of left artificial knee joint; Z88.0 Allergy status to penicillin; E66.9 Obesity, unspecified; Z79.01 Long term (current) use of anticoagulants; Z68.31 Body mass index [BMI] 31.0-31.9, adult
CPT/HCPCS: 36415; 70450-TC; 71045-TC-FY; 73562-TC-LT-FY; 80053; 81003; 84443; 85025; 85610; 85651; 85730; 86140; 87040; 87086; 93005; 93010; 93971-TC; 99285-25; J0131

== ENCOUNTER 2022-07-14 09:36 | Inpatient (IN) | payer OTHER ==
[2022-07-14 09:54] VITALS: BMI 24.7
[2022-07-14] MEDS ORDERED: ACETAMINOPHEN 325 MG TABLET (FP) PO ONE (11:26)
[2022-07-14] MEDS ORDERED: ACETAMINOPHEN 325 MG TABLET (FP) ONE (11:46)
[2022-07-14] MEDS ORDERED: SODIUM CHLORIDE 0.9% 500 ML INFUS.BAG IV ONE ×3 (11:52→16:30)
[2022-07-14 12:09] LABS: HEMATOCRIT 30.8 % (32.4-45.2); HEMOGLOBIN 9.8 GM/dL (10.7-15.3); MCH 29.4 pg (25.7-33.7); MCHC 31.7 g/dl (32.0-36.0); MEAN CELL VOLUME 92.8 fl (80-96); MEAN PLT VOLUME 10.4 fl (7.5-11.1); PLATELET COUNT 271 10^3/uL (134-434); RBC 3.32 M/mm3 (3.60-5.2); RDW 14.5 % (11.6-15.6); WHITE BLOOD COUNT 20.6 K/mm3 (4.0-10.0)
[2022-07-14 12:21] LABS: INR 1.67 (0.83-1.09); PROTHROMBIN TIME (PATIENT) 19.3 SEC (9.7-13.0)
[2022-07-14 12:24] LABS: ACTIVATED PTT 32.2 SECONDS (25.2-36.5)
[2022-07-14 12:37] LABS: CALCIUM 8.5 mg/dL (8.5-10.1)
[2022-07-14 12:38] LABS: ALBUMIN 2.7 g/dl (3.4-5.0)
[2022-07-14 12:41] LABS: CREATININE 1.4 mg/dL (0.55-1.3)
[2022-07-14 12:42] LABS: BILIRUBIN,TOTAL 0.4 mg/dL (0.2-1)
[2022-07-14 12:50] LABS: ANISOCYTOSIS 2+; MACROCYTOSIS 1+
[2022-07-14 13:07] LABS: EPI CELLS 16 /uL (0-25.1); HYALINE CASTS 4 /uL (0-3.1); URINE APPEARANCE CLOUDY; URINE BACTERIA 25 /uL (0-1359); URINE BILIRUBIN NEGATIVE (NEGATIVE); URINE COLOR DK YELLOW; URINE GLUCOSE (UA) NEGATIVE (NEGATIVE); URINE KETONE TRACE (NEGATIVE); URINE LEUK ESTERASE 1+ (NEGATIVE); URINE NITRITE NEGATIVE (NEGATIVE); URINE PROTEIN 1+ (NEGATIVE); URINE RBC 15 /uL (0-23.9); URINE UROBILINOGEN 0.2 mg/dL (0.2-1.0); URINE WBC 34 /uL (0-25.8)
[2022-07-14 15:01] LABS: MAGNESIUM 1.6 mg/dL (1.8-2.4)
[2022-07-14] MEDS ORDERED: CEFTRIAXONE 1 GM in DEXTROSE 5%-WATER - 100 ML IVPB ONE (16:14)
[2022-07-14] MEDS ORDERED: CEFTRIAXONE 1 GM/50 ML BAG ONE (17:08)
[2022-07-14] MEDS ORDERED: SODIUM CHLORIDE 1,000 ML IV SCH (17:15)
[2022-07-14] MEDS: ENOXAPARIN NA (PORCINE) 40 MG/0.4 ML DISP.SYRIN SQ SCH (17:25)
[2022-07-15 01:15] LABS: HEMATOCRIT 28.3 % (32.4-45.2); MCH 29.3 pg (25.7-33.7); MCHC 31.7 g/dl (32.0-36.0); MEAN CELL VOLUME 92.4 fl (80-96); PLATELET COUNT 249 10^3/uL (134-434); RBC 3.06 M/mm3 (3.60-5.2); WHITE BLOOD COUNT 22.2 K/mm3 (4.0-10.0)
[2022-07-15 04:14] LABS: ANISOCYTOSIS 2+; MACROCYTOSIS 0; OVALOCYTE 2+; TEAR DROP CELLS 1+
[2022-07-15 07:35] LABS: HEMATOCRIT 27.1 % (32.4-45.2); HEMOGLOBIN 8.7 GM/dL (10.7-15.3); MCH 29.8 pg (25.7-33.7); MCHC 32.1 g/dl (32.0-36.0); MEAN CELL VOLUME 92.7 fl (80-96); MEAN PLT VOLUME 10.1 fl (7.5-11.1); PLATELET COUNT 250 10^3/uL (134-434); RBC 2.92 M/mm3 (3.60-5.2); WHITE BLOOD COUNT 20.9 K/mm3 (4.0-10.0)
[2022-07-15 08:00] LABS: CALCIUM 7.8 mg/dL (8.5-10.1)
[2022-07-15 08:01] LABS: ALBUMIN 2.5 g/dl (3.4-5.0); BLOOD UREA NITROGEN 38.6 mg/dL (7-18); MAGNESIUM 1.5 mg/dL (1.8-2.4)
[2022-07-15 08:04] LABS: CREATININE 1.2 mg/dL (0.55-1.3)
[2022-07-15 08:05] LABS: BILIRUBIN,TOTAL 0.7 mg/dL (0.2-1); TOT PROT 5.7 g/dl (6.4-8.2)
[2022-07-15 09:12] LABS: ANISOCYTOSIS 1+; MACROCYTOSIS 1+
[2022-07-15] MEDS ORDERED: PHYTONADIONE 10 MG/1 ML AMP IVPB ONE (10:08)
[2022-07-15] MEDS ORDERED: DEXTROSE 5%-LACTATED RINGERS 1,000 ML IV SCH (10:15)
[2022-07-15] MEDS ORDERED: MAGNESIUM 1GM/D5W - 1 GM/100 ML IVPB IVPB ONE (10:30)
[2022-07-15] MEDS: ENOXAPARIN NA (PORCINE) 40 MG/0.4 ML DISP.SYRIN SQ SCH (12:09)
[2022-07-15] MEDS: CARVEDILOL 25 MG TABLET (FP) PO SCH ×2 (13:16→21:22)
[2022-07-15 13:31] LABS: INR 1.7 (0.83-1.09); PROTHROMBIN TIME (PATIENT) 19.7 SEC (9.7-13.0)
[2022-07-15 16:11] LABS: URINE APPEARANCE CLEAR; URINE BILIRUBIN NEGATIVE (NEGATIVE); URINE COLOR YELLOW; URINE GLUCOSE (UA) NEGATIVE (NEGATIVE); URINE KETONE NEGATIVE (NEGATIVE); URINE LEUK ESTERASE NEGATIVE (NEGATIVE); URINE NITRITE NEGATIVE (NEGATIVE); URINE PROTEIN TRACE (NEGATIVE); URINE UROBILINOGEN 0.2 mg/dL (0.2-1.0)
[2022-07-15] MEDS: ACETAMINOPHEN 325 MG TABLET (FP) PO PRN (22:00)
[2022-07-16 08:28] LABS: HEMATOCRIT 28.4 % (32.4-45.2); HEMOGLOBIN 8.6 GM/dL (10.7-15.3); MCH 28.5 pg (25.7-33.7); MCHC 30.3 g/dl (32.0-36.0); MEAN CELL VOLUME 93.9 fl (80-96); MEAN PLT VOLUME 10.2 fl (7.5-11.1); PLATELET COUNT 222 10^3/uL (134-434); RBC 3.03 M/mm3 (3.60-5.2); RDW 14.9 % (11.6-15.6); WHITE BLOOD COUNT 17.2 K/mm3 (4.0-10.0)
[2022-07-16 08:43] LABS: BLOOD UREA NITROGEN 28.3 mg/dL (7-18); MAGNESIUM 1.9 mg/dL (1.8-2.4)
[2022-07-16 08:46] LABS: CREATININE 0.9 mg/dL (0.55-1.3)
[2022-07-16] MEDS: CARVEDILOL 25 MG TABLET (FP) PO SCH ×2 (09:01→21:31)
[2022-07-16] MEDS: ACETAMINOPHEN 325 MG TABLET (FP) PO PRN ×2 (09:01→21:34)
[2022-07-16] MEDS: PANTOPRAZOLE SODIUM 40 MG VIAL IVPUSH SCH (09:15)
[2022-07-16] MEDS: LISINOPRIL 20 MG TABLET PO SCH (09:15)
[2022-07-16] MEDS: amLODIPine BESYLATE 5 MG TABLET (FP) PO SCH (09:15)
[2022-07-16 09:46] LABS: ANISOCYTOSIS 1+; MACROCYTOSIS 0
[2022-07-16] MEDS ORDERED: IRON SUCROSE INJECTION 200 MG in SODIUM CHLORIDE 90 ML IVPB ONE (10:00)
[2022-07-16] MEDS: DEXTROSE 5%-LACTATED RINGERS 1,000 ML IV SCH (18:59)
[2022-07-17 08:17] LABS: CALCIUM 7.9 mg/dL (8.5-10.1)
[2022-07-17 08:18] LABS: BLOOD UREA NITROGEN 19.3 mg/dL (7-18)
[2022-07-17 08:19] LABS: HEMATOCRIT 27.2 % (32.4-45.2); HEMOGLOBIN 8.6 GM/dL (10.7-15.3); MCH 29.6 pg (25.7-33.7); MCHC 31.8 g/dl (32.0-36.0); MEAN PLT VOLUME 10.3 fl (7.5-11.1); PLATELET COUNT 215 10^3/uL (134-434); RBC 2.92 M/mm3 (3.60-5.2); RDW 14.8 % (11.6-15.6); WHITE BLOOD COUNT 13.6 K/mm3 (4.0-10.0)
[2022-07-17 08:21] LABS: CREATININE 0.9 mg/dL (0.55-1.3)
[2022-07-17] MEDS: CARVEDILOL 25 MG TABLET (FP) PO SCH ×2 (09:18→21:22)
[2022-07-17] MEDS: PANTOPRAZOLE SODIUM 40 MG VIAL IVPUSH SCH (09:19)
[2022-07-17] MEDS: LISINOPRIL 20 MG TABLET PO SCH (09:19)
[2022-07-17] MEDS: amLODIPine BESYLATE 5 MG TABLET (FP) PO SCH (09:19)
[2022-07-17 09:57] LABS: ANISOCYTOSIS 1+; MACROCYTOSIS 1+; OVALOCYTE 1+
[2022-07-17] MEDS ORDERED: IRON SUCROSE INJECTION 200 MG in SODIUM CHLORIDE 90 ML IVPB ONE (10:00)
[2022-07-17 14:18] LABS: INR 1.86 (0.83-1.09); PROTHROMBIN TIME (PATIENT) 21.5 SEC (9.7-13.0)
[2022-07-17] MEDS: ACETAMINOPHEN 325 MG TABLET (FP) PO PRN (21:21)
[2022-07-18] MEDS: DEXTROSE 5%-LACTATED RINGERS 1,000 ML IV SCH ×2 (06:26→10:43)
[2022-07-18 08:12] LABS: HEMATOCRIT 30.5 % (32.4-45.2); HEMOGLOBIN 9.3 GM/dL (10.7-15.3); MCH 28.3 pg (25.7-33.7); MCHC 30.5 g/dl (32.0-36.0); MEAN CELL VOLUME 92.7 fl (80-96); MEAN PLT VOLUME 10.1 fl (7.5-11.1); PLATELET COUNT 235 10^3/uL (134-434); RBC 3.29 M/mm3 (3.60-5.2); RDW 15.4 % (11.6-15.6); WHITE BLOOD COUNT 16.8 K/mm3 (4.0-10.0)
[2022-07-18 08:30] LABS: BLOOD UREA NITROGEN 15.7 mg/dL (7-18); CALCIUM 8.3 mg/dL (8.5-10.1); MAGNESIUM 1.8 mg/dL (1.8-2.4)
[2022-07-18 08:34] LABS: CREATININE 0.8 mg/dL (0.55-1.3); PHOSPHOROUS 2.2 mg/dL (2.5-4.9)
[2022-07-18 09:18] LABS: ANISOCYTOSIS 2+; MACROCYTOSIS 0
[2022-07-18] MEDS ORDERED: SIMETHICONE 80 MG TAB.CHEW (FP) PO PRN (09:34)
[2022-07-18] MEDS ORDERED: IRON SUCROSE INJECTION 200 MG in SODIUM CHLORIDE 90 ML IVPB ONE (10:00)
[2022-07-18] MEDS: metroNIDAZOLE 250 MG TABLET PO SCH ×3 (10:41→22:45)
[2022-07-18] MEDS: SPIRONOLACTONE 25 MG TABLET PO SCH (10:42)
[2022-07-18] MEDS: PANTOPRAZOLE SODIUM 40 MG VIAL IVPUSH SCH (10:42)
[2022-07-18] MEDS: amLODIPine BESYLATE 5 MG TABLET (FP) PO SCH (10:42)
[2022-07-18] MEDS: CARVEDILOL 25 MG TABLET (FP) PO SCH ×2 (10:42→22:45)
[2022-07-18] MEDS: LISINOPRIL 20 MG TABLET PO SCH (10:42)
[2022-07-18] MEDS: LACTOBACILLUS ACIDOPHILUS 1 TABLET PO SCH (10:42)
[2022-07-18] MEDS ORDERED: metroNIDAZOLE 250 MG TABLET PO SCH (14:00)
[2022-07-18] MEDS ORDERED: NAPH,MB-DB/K PH,MBDB POWDER PACKET PO ONE (14:45)
[2022-07-18] MEDS ORDERED: SODIUM PHOSPHATE - 30 MM in DEXTROSE 5%-WATER - 500 ML IVPB ONE (15:00)
[2022-07-18] MEDS: ACETAMINOPHEN 325 MG TABLET (FP) PO PRN ×2 (15:07→22:45)
[2022-07-19 06:02] VITALS: TEMP 98.3
[2022-07-19] MEDS: metroNIDAZOLE 250 MG TABLET PO SCH (06:04)
[2022-07-19] MEDS: LISINOPRIL 20 MG TABLET PO SCH (09:38)
[2022-07-19] MEDS: LACTOBACILLUS ACIDOPHILUS 1 TABLET PO SCH (09:38)
[2022-07-19] MEDS: PANTOPRAZOLE SODIUM 40 MG VIAL IVPUSH SCH (09:39)
[2022-07-19] MEDS: CARVEDILOL 25 MG TABLET (FP) PO SCH (09:39)
[2022-07-19] MEDS: SPIRONOLACTONE 25 MG TABLET PO SCH (09:39)
[2022-07-19] MEDS: amLODIPine BESYLATE 5 MG TABLET (FP) PO SCH (09:39)
[2022-07-19 10:53] LABS: HEMATOCRIT 29.2 % (32.4-45.2); HEMOGLOBIN 9.1 GM/dL (10.7-15.3); MCHC 31.2 g/dl (32.0-36.0); MEAN PLT VOLUME 10.5 fl (7.5-11.1); PLATELET COUNT 208 10^3/uL (134-434); RBC 3.14 M/mm3 (3.60-5.2); RDW 14.9 % (11.6-15.6); WHITE BLOOD COUNT 15.6 K/mm3 (4.0-10.0)
[2022-07-19 11:22] LABS: CALCIUM 7.5 mg/dL (8.5-10.1)
[2022-07-19 11:23] LABS: ALBUMIN 2.4 g/dl (3.4-5.0); BLOOD UREA NITROGEN 11.4 mg/dL (7-18); MAGNESIUM 1.4 mg/dL (1.8-2.4)
[2022-07-19 11:26] LABS: CREATININE 0.8 mg/dL (0.55-1.3); PHOSPHOROUS 1.9 mg/dL (2.5-4.9)
[2022-07-19 11:27] LABS: TOT PROT 5.2 g/dl (6.4-8.2)
[2022-07-19 11:28] LABS: BILIRUBIN,TOTAL 0.4 mg/dL (0.2-1)
[2022-07-19] MEDS ORDERED: MAGNESIUM SULF 50% (8.12 MEQ/2 ML-1 GM VIAL) IVPB ONE (11:57)
[2022-07-19] MEDS ORDERED: MAGNESIUM OXIDE 400 MG TABLET (FP) PO ONE (12:00)
[2022-07-19] MEDS ORDERED: NAPH,MB-DB/K PH,MBDB POWDER PACKET PO SCH (12:00)
[2022-07-19] MEDS: DEXTROSE 5%-LACTATED RINGERS 1,000 ML IV SCH (12:01)
[2022-07-19 14:10] VITALS: BP 145/50; PULSE 72; RESP 16
== END 2022-07-19 12:55 | disposition home or self-care (01) | DRG 395 ==
LOC: JER 09:36 → JERBED 16:29 → J4W 07-15 03:30 → J5S 07-18 18:35
PROVIDERS: ADMIT Internal Medicine; ATTEND Internal Medicine
DX: K55.039 Acute (reversible) ischemia of large intestine, extent unspecified (principal); K40.90 Unilateral inguinal hernia, without obstruction or gangrene, not specified as recurrent; K57.30 Diverticulosis of large intestine without perforation or abscess without bleeding; D50.9 Iron deficiency anemia, unspecified; I10 Essential (primary) hypertension; D18.03 Hemangioma of intra-abdominal structures; K76.89 Other specified diseases of liver; D73.4 Cyst of spleen; E03.9 Hypothyroidism, unspecified; K57.90 Diverticulosis of intestine, part unspecified, without perforation or abscess without bleeding; D72.829 Elevated white blood cell count, unspecified; Z96.652 Presence of left artificial knee joint
CPT/HCPCS: 0241U-QW; 36415; 71045-TC-FY; 74177-TC; 80048; 80053; 81003; 82272; 82728; 83540; 83550; 83605; 83735; 84100; 84436; 84443; 85025; 85027; 85045; 85610; 85651; 85730; 86140; 86850; 86900; 86901; 87040; 87086; 93005; 93010; 94010; 99285-25; J1756

== ENCOUNTER 2022-07-22 18:29 | Inpatient (IN) | payer OTHER ==
[2022-07-22 21:01] LABS: HEMATOCRIT 35.3 % (32.4-45.2); HEMOGLOBIN 10.9 GM/dL (10.7-15.3); MCH 28.6 pg (25.7-33.7); MCHC 30.9 g/dl (32.0-36.0); MEAN CELL VOLUME 92.4 fl (80-96); MEAN PLT VOLUME 10.2 fl (7.5-11.1); PLATELET COUNT 189 10^3/uL (134-434); RBC 3.82 M/mm3 (3.60-5.2); RDW 15.5 % (11.6-15.6); WHITE BLOOD COUNT 15.9 K/mm3 (4.0-10.0)
[2022-07-22 21:07] LABS: EPI CELLS 10 /uL (0-25.1); HYALINE CASTS 0 /uL (0-3.1); PH,URINE 7.5 (5.0-8.0); URINE APPEARANCE CLEAR; URINE BACTERIA 19 /uL (0-1359); URINE BILIRUBIN NEGATIVE (NEGATIVE); URINE COLOR YELLOW; URINE GLUCOSE (UA) NEGATIVE (NEGATIVE); URINE KETONE NEGATIVE (NEGATIVE); URINE LEUK ESTERASE 1+ (NEGATIVE); URINE NITRITE NEGATIVE (NEGATIVE); URINE PROTEIN NEGATIVE (NEGATIVE); URINE RBC 51 /uL (0-23.9); URINE UROBILINOGEN 0.2 mg/dL (0.2-1.0); URINE WBC 16 /uL (0-25.8)
[2022-07-22 21:08] LABS: INR 1.7 (0.83-1.09); PROTHROMBIN TIME (PATIENT) 19.6 SEC (9.7-13.0)
[2022-07-22 21:10] LABS: ACTIVATED PTT 33.7 SECONDS (25.2-36.5)
[2022-07-22 21:22] LABS: ALBUMIN 2.8 g/dl (3.4-5.0); BLOOD UREA NITROGEN 20.1 mg/dL (7-18); MAGNESIUM 1.5 mg/dL (1.8-2.4)
[2022-07-22 21:25] LABS: CREATININE 1.1 mg/dL (0.55-1.3)
[2022-07-22 21:27] LABS: BILIRUBIN,TOTAL 0.4 mg/dL (0.2-1)
[2022-07-22] MEDS ORDERED: SODIUM CHLORIDE 0.9% 500 ML INFUS.BAG IV ONE (21:42)
[2022-07-22 22:38] LABS: ANISOCYTOSIS 1+; MACROCYTOSIS 1+; OVALOCYTE 1+; TOXIC GRANULATION 1+
[2022-07-22] MEDS ORDERED: MAGNESIUM 1GM/D5W - 1 GM/100 ML IVPB IVPB ONE (23:05)
[2022-07-23] MEDS ORDERED: SODIUM CHLORIDE 1,000 ML IV STA (01:25)
[2022-07-23 04:09] VITALS: BMI 28.0
[2022-07-23] MEDS ORDERED: metroNIDAZOLE 500 MG TABLET PO SCH (06:45)
[2022-07-23] MEDS ORDERED: LACTATED RINGERS SOLUTION 1,000 ML/1,000 ML INFUS.BAG IV SCH (08:00)
[2022-07-23] MEDS ORDERED: [UNRECOGNIZED DRUG - OTHER] PO SCH (10:00)
[2022-07-23] MEDS ORDERED: NIFEdipine E.R 60 MG TABLET PO SCH (10:00)
[2022-07-23] MEDS ORDERED: HYDROCHLOROTHIAZIDE PO SCH (10:00)
[2022-07-23] MEDS ORDERED: MAGNESIUM OXIDE 400 MG TABLET (FP) PO SCH (10:00)
[2022-07-23] MEDS ORDERED: LISINOPRIL PO SCH (10:00)
[2022-07-23] MEDS ORDERED: HYDROCHLOROTHIAZIDE 25 MG TABLET (FP) PO SCH (10:00)
[2022-07-23] MEDS ORDERED: SPIRONOLACTONE 25 MG TABLET PO SCH (10:00)
[2022-07-23] MEDS ORDERED: LISINOPRIL 20 MG TABLET PO SCH (10:00)
[2022-07-23] MEDS: LACTOBACILLUS ACIDOPHILUS 1 TABLET PO SCH (10:20)
[2022-07-23] MEDS: CARVEDILOL 25 MG TABLET (FP) PO SCH ×2 (10:20→21:25)
[2022-07-23 11:54] LABS: HEMATOCRIT 28.3 % (32.4-45.2); HEMOGLOBIN 8.8 GM/dL (10.7-15.3); MCH 28.9 pg (25.7-33.7); MEAN CELL VOLUME 93.3 fl (80-96); MEAN PLT VOLUME 10.8 fl (7.5-11.1); PLATELET COUNT 182 10^3/uL (134-434); RBC 3.03 M/mm3 (3.60-5.2); RDW 15.7 % (11.6-15.6); WHITE BLOOD COUNT 16.6 K/mm3 (4.0-10.0)
[2022-07-23 12:21] LABS: CALCIUM 7.6 mg/dL (8.5-10.1)
[2022-07-23 12:22] LABS: ALBUMIN 2.4 g/dl (3.4-5.0); BLOOD UREA NITROGEN 13.8 mg/dL (7-18); MAGNESIUM 1.6 mg/dL (1.8-2.4); PHOSPHOROUS 2.5 mg/dL (2.5-4.9)
[2022-07-23 12:23] LABS: BILIRUBIN,TOTAL 0.6 mg/dL (0.2-1); TOT PROT 5.1 g/dl (6.4-8.2)
[2022-07-23 12:25] LABS: CREATININE 0.9 mg/dL (0.55-1.3)
[2022-07-23] MEDS: MEROPENEM 1 GM in DEXTROSE 5%-WATER 100 ML IVPB SCH ×2 (12:29→17:06)
[2022-07-23] MEDS ORDERED: MEROPENEM 1 GM VIAL (RESTRICTED TO ID) IVPB ONE (12:30)
[2022-07-23] MEDS: DOXAZOSIN MESYLATE 8 MG TABLET PO SCH ×2 (12:32→12:33)
[2022-07-23 14:24] LABS: ERYTHROCYTE SEDIMENTATION RATE 14 mm/hr (0-30)
[2022-07-23] MEDS ORDERED: MAGNESIUM 2GM/50ML STERILE WATER IVPB IVPB ONE (14:50)
[2022-07-23] MEDS: PANTOPRAZOLE SODIUM 40 MG VIAL IVPUSH SCH (17:06)
[2022-07-23] MEDS: DEXTROSE 5%-LACTATED RINGERS 1,000 ML IV SCH (21:25)
[2022-07-23] MEDS ORDERED: DOXAZOSIN MESYLATE 4 MG TABLET PO SCH (22:00)
[2022-07-24] MEDS: MEROPENEM 1 GM in DEXTROSE 5%-WATER 100 ML IVPB SCH ×3 (01:38→17:33)
[2022-07-24] MEDS: CARVEDILOL 25 MG TABLET (FP) PO SCH ×2 (09:28→21:30)
[2022-07-24] MEDS: LACTOBACILLUS ACIDOPHILUS 1 TABLET PO SCH (09:28)
[2022-07-24] MEDS: PANTOPRAZOLE SODIUM 40 MG VIAL IVPUSH SCH (09:29)
[2022-07-24] MEDS ORDERED: ACETAMINOPHEN 500 MG TABLET (FP) PO ONE (12:45)
[2022-07-24 12:55] LABS: HEMATOCRIT 32.1 % (32.4-45.2); HEMOGLOBIN 9.9 GM/dL (10.7-15.3); MCH 28.6 pg (25.7-33.7); MCHC 30.7 g/dl (32.0-36.0); MEAN CELL VOLUME 93.3 fl (80-96); MEAN PLT VOLUME 9.5 fl (7.5-11.1); PLATELET COUNT 170 10^3/uL (134-434); RBC 3.44 M/mm3 (3.60-5.2); RDW 15.8 % (11.6-15.6); WHITE BLOOD COUNT 17.3 K/mm3 (4.0-10.0)
[2022-07-24] MEDS: DEXTROSE 5%-LACTATED RINGERS 1,000 ML IV SCH ×2 (12:55→21:31)
[2022-07-24 13:15] LABS: ALBUMIN 2.4 g/dl (3.4-5.0); BLOOD UREA NITROGEN 10.8 mg/dL (7-18); CALCIUM 8.3 mg/dL (8.5-10.1); MAGNESIUM 1.9 mg/dL (1.8-2.4)
[2022-07-24 13:19] LABS: CREATININE 0.8 mg/dL (0.55-1.3); PHOSPHOROUS 3.1 mg/dL (2.5-4.9)
[2022-07-24 13:21] LABS: BILIRUBIN,TOTAL 0.6 mg/dL (0.2-1); TOT PROT 5.4 g/dl (6.4-8.2)
[2022-07-24 13:22] LABS: ANISOCYTOSIS 0; HELMET CELLS 0; HOWELL-JOLLY BODIES 0; MACROCYTOSIS 0; OVALOCYTE 0; ROULEAU 0; SICKELED CELLS 0; TARGET CELLS 0; TEAR DROP CELLS 0; TOXIC GRANULATION 0
[2022-07-25] MEDS: MEROPENEM 1 GM in DEXTROSE 5%-WATER 100 ML IVPB SCH ×4 (01:11→17:11)
[2022-07-25] MEDS: DEXTROSE 5%-LACTATED RINGERS 1,000 ML IV SCH (06:23)
[2022-07-25] MEDS: LACTOBACILLUS ACIDOPHILUS 1 TABLET PO SCH (09:09)
[2022-07-25] MEDS: CARVEDILOL 25 MG TABLET (FP) PO SCH ×2 (09:09→21:54)
[2022-07-25] MEDS: PANTOPRAZOLE SODIUM 40 MG VIAL IVPUSH SCH (09:10)
[2022-07-25] MEDS: ENOXAPARIN NA (PORCINE) 40 MG/0.4 ML DISP.SYRIN SQ SCH (09:45)
[2022-07-25 11:38] LABS: HEMATOCRIT 28.5 % (32.4-45.2); MCHC 31.5 g/dl (32.0-36.0); MEAN PLT VOLUME 9.5 fl (7.5-11.1); PLATELET COUNT 163 10^3/uL (134-434); RBC 3.09 M/mm3 (3.60-5.2); RDW 15.6 % (11.6-15.6); WHITE BLOOD COUNT 13.8 K/mm3 (4.0-10.0)
[2022-07-25] MEDS ORDERED: FENTANYL CITRATE/PF 50 MCG/ML VIAL ONE (11:55)
[2022-07-25] MEDS ORDERED: MIDAZOLAM HCL 2 MG/2 ML SINGLE DOSE VIAL ONE (11:55)
[2022-07-25 12:11] LABS: BLOOD UREA NITROGEN 9.2 mg/dL (7-18); CALCIUM 7.8 mg/dL (8.5-10.1)
[2022-07-25 12:15] LABS: CREATININE 0.7 mg/dL (0.55-1.3)
[2022-07-25] MEDS ORDERED: SODIUM CHLORIDE 500 ML IV SCH (12:15)
[2022-07-25] MEDS ORDERED: FENTANYL CITRATE/PF 50 MCG/ML VIAL IVPUSH ONE (12:32)
[2022-07-25] MEDS: ACETAMINOPHEN 325 MG TABLET (FP) PO PRN (23:58)
[2022-07-26] MEDS: DEXTROSE 5%-LACTATED RINGERS 1,000 ML IV SCH (01:15)
[2022-07-26] MEDS: MEROPENEM 1 GM in DEXTROSE 5%-WATER 100 ML IVPB SCH ×3 (01:51→17:55)
[2022-07-26] MEDS: CARVEDILOL 25 MG TABLET (FP) PO SCH ×2 (09:58→22:02)
[2022-07-26] MEDS: LACTOBACILLUS ACIDOPHILUS 1 TABLET PO SCH (09:58)
[2022-07-26] MEDS: PANTOPRAZOLE SODIUM 40 MG VIAL IVPUSH SCH (10:00)
[2022-07-26] MEDS: ENOXAPARIN NA (PORCINE) 40 MG/0.4 ML DISP.SYRIN SQ SCH (10:01)
[2022-07-26] MEDS: ACETAMINOPHEN 325 MG TABLET (FP) PO PRN (20:20)
[2022-07-27] MEDS: MEROPENEM 1 GM in DEXTROSE 5%-WATER 100 ML IVPB SCH ×3 (01:14→17:55)
[2022-07-27] MEDS: LACTOBACILLUS ACIDOPHILUS 1 TABLET PO SCH (09:02)
[2022-07-27] MEDS: CARVEDILOL 25 MG TABLET (FP) PO SCH ×2 (09:02→22:56)
[2022-07-27] MEDS: PANTOPRAZOLE SODIUM 40 MG VIAL IVPUSH SCH (09:03)
[2022-07-27] MEDS: ENOXAPARIN NA (PORCINE) 40 MG/0.4 ML DISP.SYRIN SQ SCH (09:03)
[2022-07-27] MEDS: ACETAMINOPHEN 325 MG TABLET (FP) PO PRN ×2 (09:03→18:01)
[2022-07-27 10:25] LABS: HEMATOCRIT 32.5 % (32.4-45.2); HEMOGLOBIN 10.2 GM/dL (10.7-15.3); MCH 28.9 pg (25.7-33.7); MCHC 31.3 g/dl (32.0-36.0); MEAN CELL VOLUME 92.5 fl (80-96); MEAN PLT VOLUME 9.9 fl (7.5-11.1); PLATELET COUNT 209 10^3/uL (134-434); RBC 3.51 M/mm3 (3.60-5.2); RDW 15.6 % (11.6-15.6); WHITE BLOOD COUNT 16.2 K/mm3 (4.0-10.0)
[2022-07-27 11:04] LABS: CALCIUM 8.1 mg/dL (8.5-10.1)
[2022-07-27 11:05] LABS: MAGNESIUM 1.5 mg/dL (1.8-2.4)
[2022-07-27 11:08] LABS: CREATININE 0.6 mg/dL (0.55-1.3)
[2022-07-27 11:34] LABS: ANISOCYTOSIS 0; HELMET CELLS 0; HOWELL-JOLLY BODIES 0; MACROCYTOSIS 0; OVALOCYTE 0; ROULEAU 0; SICKELED CELLS 0; TARGET CELLS 0; TEAR DROP CELLS 0; TOXIC GRANULATION 0
[2022-07-27] MEDS: FLUCONAZOLE 400 MG/NS 200 ML IVPB SCH (22:58)
[2022-07-28] MEDS: MEROPENEM 1 GM in DEXTROSE 5%-WATER 100 ML IVPB SCH ×3 (02:09→18:08)
[2022-07-28] MEDS: ACETAMINOPHEN 325 MG TABLET (FP) PO PRN (05:44)
[2022-07-28 09:04] LABS: HEMOGLOBIN 9.9 GM/dL (10.7-15.3); MCH 28.4 pg (25.7-33.7); MCHC 30.9 g/dl (32.0-36.0); MEAN CELL VOLUME 92.1 fl (80-96); MEAN PLT VOLUME 9.6 fl (7.5-11.1); PLATELET COUNT 223 10^3/uL (134-434); RBC 3.48 M/mm3 (3.60-5.2); RDW 15.9 % (11.6-15.6); WHITE BLOOD COUNT 16.1 K/mm3 (4.0-10.0)
[2022-07-28] MEDS: PANTOPRAZOLE SODIUM 40 MG VIAL IVPUSH SCH (09:12)
[2022-07-28] MEDS: LACTOBACILLUS ACIDOPHILUS 1 TABLET PO SCH (09:12)
[2022-07-28] MEDS: ENOXAPARIN NA (PORCINE) 40 MG/0.4 ML DISP.SYRIN SQ SCH (09:12)
[2022-07-28] MEDS: CARVEDILOL 25 MG TABLET (FP) PO SCH ×2 (09:12→21:15)
[2022-07-28] MEDS: FLUCONAZOLE 400 MG/NS 200 ML IVPB SCH (09:12)
[2022-07-28 09:22] LABS: CALCIUM 8.2 mg/dL (8.5-10.1)
[2022-07-28 09:23] LABS: BLOOD UREA NITROGEN 9.3 mg/dL (7-18); MAGNESIUM 1.4 mg/dL (1.8-2.4)
[2022-07-28 09:26] LABS: CREATININE 0.7 mg/dL (0.55-1.3)
[2022-07-28 10:21] LABS: ANISOCYTOSIS 0; MACROCYTOSIS 0
[2022-07-28] MEDS: ACETAMINOPHEN 500 MG TABLET (FP) PO PRN ×2 (12:20→21:15)
[2022-07-28] MEDS ORDERED: MAGNESIUM SULF 50% (8.12 MEQ/2 ML-1 GM VIAL) IVPB ONE (14:30)
[2022-07-29] MEDS: MEROPENEM 1 GM in DEXTROSE 5%-WATER 100 ML IVPB SCH ×2 (01:22→09:43)
[2022-07-29 09:25] LABS: HEMATOCRIT 29.9 % (32.4-45.2); HEMOGLOBIN 9.4 GM/dL (10.7-15.3); MCH 29.1 pg (25.7-33.7); MCHC 31.5 g/dl (32.0-36.0); MEAN CELL VOLUME 92.3 fl (80-96); MEAN PLT VOLUME 9.9 fl (7.5-11.1); PLATELET COUNT 231 10^3/uL (134-434); RBC 3.24 M/mm3 (3.60-5.2); RDW 15.4 % (11.6-15.6); WHITE BLOOD COUNT 15.6 K/mm3 (4.0-10.0)
[2022-07-29 09:43] LABS: CALCIUM 7.8 mg/dL (8.5-10.1)
[2022-07-29] MEDS: ENOXAPARIN NA (PORCINE) 40 MG/0.4 ML DISP.SYRIN SQ SCH (09:43)
[2022-07-29 09:44] LABS: BLOOD UREA NITROGEN 8.4 mg/dL (7-18); MAGNESIUM 1.7 mg/dL (1.8-2.4)
[2022-07-29] MEDS: ACETAMINOPHEN 500 MG TABLET (FP) PO PRN ×2 (09:44→21:40)
[2022-07-29] MEDS: LACTOBACILLUS ACIDOPHILUS 1 TABLET PO SCH (09:45)
[2022-07-29] MEDS: CARVEDILOL 25 MG TABLET (FP) PO SCH ×2 (09:45→21:40)
[2022-07-29] MEDS: PANTOPRAZOLE 40 MG TABLET PO SCH (09:45)
[2022-07-29 09:47] LABS: CREATININE 0.7 mg/dL (0.55-1.3); PHOSPHOROUS 2.6 mg/dL (2.5-4.9)
[2022-07-29 10:23] LABS: ANISOCYTOSIS 1+; MACROCYTOSIS 0
[2022-07-29] MEDS: FLUCONAZOLE 400 MG/NS 200 ML IVPB SCH (11:26)
[2022-07-29] MEDS ORDERED: MAGNESIUM SULF 50% (8.12 MEQ/2 ML-1 GM VIAL) IVPB ONE (11:46)
[2022-07-29] MEDS: LINEZOLID 600 MG TABLET (RESTRICTED TO ID) PO SCH ×2 (14:07→21:40)
[2022-07-30 07:25] LABS: HEMATOCRIT 30.2 % (32.4-45.2); HEMOGLOBIN 9.6 GM/dL (10.7-15.3); MCH 29.3 pg (25.7-33.7); MCHC 31.9 g/dl (32.0-36.0); MEAN CELL VOLUME 91.8 fl (80-96); MEAN PLT VOLUME 9.5 fl (7.5-11.1); PLATELET COUNT 240 10^3/uL (134-434); RBC 3.29 M/mm3 (3.60-5.2); RDW 15.6 % (11.6-15.6); WHITE BLOOD COUNT 14.4 K/mm3 (4.0-10.0)
[2022-07-30 07:51] LABS: CALCIUM 8.2 mg/dL (8.5-10.1)
[2022-07-30 07:52] LABS: BLOOD UREA NITROGEN 8.8 mg/dL (7-18); MAGNESIUM 1.9 mg/dL (1.8-2.4)
[2022-07-30 07:55] LABS: CREATININE 0.5 mg/dL (0.55-1.3); PHOSPHOROUS 3.2 mg/dL (2.5-4.9)
[2022-07-30 08:54] LABS: ANISOCYTOSIS 0; MACROCYTOSIS 0
[2022-07-30] MEDS: PANTOPRAZOLE 40 MG TABLET PO SCH (10:14)
[2022-07-30] MEDS: LINEZOLID 600 MG TABLET (RESTRICTED TO ID) PO SCH ×2 (10:14→22:10)
[2022-07-30] MEDS: LACTOBACILLUS ACIDOPHILUS 1 TABLET PO SCH (10:14)
[2022-07-30] MEDS: ENOXAPARIN NA (PORCINE) 40 MG/0.4 ML DISP.SYRIN SQ SCH (10:14)
[2022-07-30] MEDS: CARVEDILOL 25 MG TABLET (FP) PO SCH ×2 (10:15→22:10)
[2022-07-30] MEDS: ACETAMINOPHEN 500 MG TABLET (FP) PO PRN ×2 (10:24→20:38)
[2022-07-30] MEDS: FLUCONAZOLE 400 MG/NS 200 ML IVPB SCH (10:39)
[2022-07-30] MEDS ORDERED: FLUCONAZOLE 100 MG TABLET (UD) PO SCH (13:30)
[2022-07-30] MEDS: amLODIPine BESYLATE 5 MG TABLET (FP) PO SCH (13:33)
[2022-07-31] MEDS: ACETAMINOPHEN 500 MG TABLET (FP) PO PRN ×2 (04:45→21:12)
[2022-07-31 08:42] LABS: BASO % 0.6 % (0-2.0); EOS % 2.3 % (0-4.5); HEMATOCRIT 29.3 % (32.4-45.2); HEMOGLOBIN 9.4 GM/dL (10.7-15.3); LYMPH % 4.8 % (8-40); MCH 29.3 pg (25.7-33.7); MCHC 31.9 g/dl (32.0-36.0); MEAN CELL VOLUME 91.8 fl (80-96); MEAN PLT VOLUME 9.8 fl (7.5-11.1); MONO % 2.7 % (3.8-10.2); NEUT % 89.6 % (42.8-82.8); PLATELET COUNT 266 10^3/uL (134-434); WHITE BLOOD COUNT 13.3 K/mm3 (4.0-10.0)
[2022-07-31 09:23] LABS: BLOOD UREA NITROGEN 9.1 mg/dL (7-18); CALCIUM 8.4 mg/dL (8.5-10.1); CREATININE 0.7 mg/dL (0.55-1.3); MAGNESIUM 1.7 mg/dL (1.8-2.4); PHOSPHOROUS 3.4 mg/dL (2.5-4.9)
[2022-07-31] MEDS: amLODIPine BESYLATE 5 MG TABLET (FP) PO SCH (09:43)
[2022-07-31] MEDS: ENOXAPARIN NA (PORCINE) 40 MG/0.4 ML DISP.SYRIN SQ SCH (09:43)
[2022-07-31] MEDS: LACTOBACILLUS ACIDOPHILUS 1 TABLET PO SCH (09:44)
[2022-07-31] MEDS: PANTOPRAZOLE 40 MG TABLET PO SCH (09:44)
[2022-07-31] MEDS: LINEZOLID 600 MG TABLET (RESTRICTED TO ID) PO SCH ×2 (09:44→21:12)
[2022-07-31] MEDS: FLUCONAZOLE 100 MG TABLET (UD) PO SCH (09:44)
[2022-07-31] MEDS: CARVEDILOL 25 MG TABLET (FP) PO SCH ×2 (09:44→21:12)
[2022-07-31] MEDS: LISINOPRIL 20 MG TABLET PO SCH (12:04)
[2022-07-31] MEDS ORDERED: MAGNESIUM SULF 50% (8.12 MEQ/2 ML-1 GM VIAL) IVPB ONE (13:20)
[2022-08-01] MEDS ORDERED: LACTATED RINGERS SOLUTION 1,000 ML/1,000 ML INFUS.BAG IV SCH (08:00)
[2022-08-01] MEDS: LISINOPRIL 20 MG TABLET PO SCH (11:28)
[2022-08-01] MEDS: amLODIPine BESYLATE 10 MG TABLET (FP) PO SCH (11:28)
[2022-08-01] MEDS: PANTOPRAZOLE 40 MG TABLET PO SCH (11:28)
[2022-08-01] MEDS: FLUCONAZOLE 100 MG TABLET (UD) PO SCH (11:29)
[2022-08-01] MEDS: LINEZOLID 600 MG TABLET (RESTRICTED TO ID) PO SCH ×2 (11:29→21:36)
[2022-08-01] MEDS: CARVEDILOL 25 MG TABLET (FP) PO SCH ×2 (11:30→21:36)
[2022-08-01] MEDS: LACTOBACILLUS ACIDOPHILUS 1 TABLET PO SCH (11:30)
[2022-08-01] MEDS: ENOXAPARIN NA (PORCINE) 40 MG/0.4 ML DISP.SYRIN SQ SCH (11:39)
[2022-08-01 11:40] LABS: BASO % 0.9 % (0-2.0); EOS % 1.9 % (0-4.5); HEMATOCRIT 26.9 % (32.4-45.2); HEMOGLOBIN 8.8 GM/dL (10.7-15.3); LYMPH % 3.9 % (8-40); MCH 29.9 pg (25.7-33.7); MCHC 32.6 g/dl (32.0-36.0); MEAN CELL VOLUME 91.7 fl (80-96); MEAN PLT VOLUME 9.1 fl (7.5-11.1); MONO % 3.5 % (3.8-10.2); NEUT % 89.8 % (42.8-82.8); PLATELET COUNT 210 10^3/uL (134-434); RBC 2.93 M/mm3 (3.60-5.2); WHITE BLOOD COUNT 10.6 K/mm3 (4.0-10.0)
[2022-08-01 12:12] LABS: CALCIUM 8.3 mg/dL (8.5-10.1); MAGNESIUM 1.6 mg/dL (1.8-2.4)
[2022-08-01 12:15] LABS: CREATININE 0.6 mg/dL (0.55-1.3); PHOSPHOROUS 3.8 mg/dL (2.5-4.9)
[2022-08-01] MEDS ORDERED: MAGNESIUM SULF 50% (8.12 MEQ/2 ML-1 GM VIAL) IVPB ONE (15:39)
[2022-08-01] MEDS: ACETAMINOPHEN 500 MG TABLET (FP) PO PRN (19:14)
[2022-08-02] MEDS: LINEZOLID 600 MG TABLET (RESTRICTED TO ID) PO SCH (09:41)
[2022-08-02] MEDS: ENOXAPARIN NA (PORCINE) 40 MG/0.4 ML DISP.SYRIN SQ SCH (09:41)
[2022-08-02] MEDS: FLUCONAZOLE 100 MG TABLET (UD) PO SCH (09:41)
[2022-08-02] MEDS: LISINOPRIL 20 MG TABLET PO SCH (09:41)
[2022-08-02] MEDS: LACTOBACILLUS ACIDOPHILUS 1 TABLET PO SCH (09:41)
[2022-08-02] MEDS: CARVEDILOL 25 MG TABLET (FP) PO SCH (09:41)
[2022-08-02] MEDS: amLODIPine BESYLATE 10 MG TABLET (FP) PO SCH (09:41)
[2022-08-02] MEDS: PANTOPRAZOLE 40 MG TABLET PO SCH (09:42)
[2022-08-02 10:07] VITALS: BP 145/58; PULSE 63; RESP 17; TEMP 97.9
[2022-08-02] MEDS: ACETAMINOPHEN 500 MG TABLET (FP) PO PRN (11:13)
[2022-08-02 12:34] LABS: BASO % 0.9 % (0-2.0); LYMPH % 4.8 % (8-40); MCH 29.5 pg (25.7-33.7); MCHC 32.1 g/dl (32.0-36.0); MEAN CELL VOLUME 91.8 fl (80-96); MONO % 4.1 % (3.8-10.2); NEUT % 88.2 % (42.8-82.8); PLATELET COUNT 205 10^3/uL (134-434); RBC 3.05 M/mm3 (3.60-5.2); RDW 15.3 % (11.6-15.6); WHITE BLOOD COUNT 9.5 K/mm3 (4.0-10.0)
[2022-08-02 13:00] LABS: BLOOD UREA NITROGEN 8.2 mg/dL (7-18); CALCIUM 8.3 mg/dL (8.5-10.1); MAGNESIUM 1.9 mg/dL (1.8-2.4)
[2022-08-02 13:03] LABS: CREATININE 0.8 mg/dL (0.55-1.3)
[2022-08-02 13:04] LABS: PHOSPHOROUS 3.4 mg/dL (2.5-4.9)
== END 2022-08-02 15:44 | disposition home or self-care (01) | DRG 872 ==
LOC: JER 18:29 → INTOOBSV 23:25 → JERBED 23:25 → J6S 07-23 03:52 → OBSVTOIN 07-23 12:05 → J7W 07-27 13:55
PROVIDERS: ADMIT Internal Medicine; ATTEND Internal Medicine
PROC: 0W9G30Z Drainage of Peritoneal Cavity with Drainage Device, Percutaneous Approach (ICD-10-PCS; principal; 2022-07-25)
DX: A41.9 Sepsis, unspecified organism (principal); E87.1 Hypo-osmolality and hyponatremia; I45.2 Bifascicular block; K40.30 Unilateral inguinal hernia, with obstruction, without gangrene, not specified as recurrent; E46 Unspecified protein-calorie malnutrition; K57.20 Diverticulitis of large intestine with perforation and abscess without bleeding; E83.42 Hypomagnesemia; I10 Essential (primary) hypertension; G47.30 Sleep apnea, unspecified; D73.4 Cyst of spleen; R16.0 Hepatomegaly, not elsewhere classified; D64.9 Anemia, unspecified; K29.70 Gastritis, unspecified, without bleeding; M19.041 Primary osteoarthritis, right hand; M19.042 Primary osteoarthritis, left hand; R42 Dizziness and giddiness; Z68.28 Body mass index [BMI] 28.0-28.9, adult; D18.09 Hemangioma of other sites; R63.0 Anorexia
CPT/HCPCS: 0241U-QW; 36415; 49406; 70450-TC; 71045-TC-FY; 74177-TC; 80048; 80053; 81003; 83605; 83735; 84100; 84484; 85025; 85027; 85610; 85651; 85730; 86140; 87070; 87075; 87086; 87186; 87205; 87324; 87449; 93005; 93010; 93971-TC; 97116-GP; 97161-GP; 99285-25; A4358; C1729; C1769; G0378; Q9967

== ENCOUNTER 2022-08-15 08:07 | Inpatient (IN) | payer OTHER ==
[2022-08-15] MEDS ORDERED: SODIUM CHLORIDE 500 ML IV STA (09:24)
[2022-08-15 09:41] LABS: HEMATOCRIT 20.2 % (32.4-45.2); MCHC 32.9 g/dl (32.0-36.0); MEAN PLT VOLUME 8.5 fl (7.5-11.1); PLATELET COUNT 87 10^3/uL (134-434); RBC 2.22 M/mm3 (3.60-5.2); RDW 16.2 % (11.6-15.6); WHITE BLOOD COUNT 7.8 K/mm3 (4.0-10.0)
[2022-08-15 09:44] LABS: INR 1.38 (0.83-1.09); PROTHROMBIN TIME (PATIENT) 15.9 SEC (9.7-13.0)
[2022-08-15 09:47] LABS: ACTIVATED PTT 34.5 SECONDS (25.2-36.5)
[2022-08-15 09:48] LABS: VENOUS BASE EXCESS 2.6 mmol/L (-2-2); VENOUS PCO2 41.3 mmHg (38-52); VENOUS PH 7.434 (7.310-7.410)
[2022-08-15 09:54] LABS: HEMOGLOBIN 6.6 GM/dL (10.7-15.3)
[2022-08-15 09:59] LABS: ALBUMIN 2.7 g/dl (3.4-5.0); BLOOD UREA NITROGEN 21.6 mg/dL (7-18); CALCIUM 8.1 mg/dL (8.5-10.1)
[2022-08-15 10:02] LABS: CREATININE 0.8 mg/dL (0.55-1.3)
[2022-08-15 10:04] LABS: BILIRUBIN,TOTAL 0.6 mg/dL (0.2-1); TOT PROT 5.9 g/dl (6.4-8.2)
[2022-08-15 10:07] LABS: N-TERMINAL BNP 6283.6 pg/ml (5-450)
[2022-08-15 10:44] LABS: ANISOCYTOSIS 2+; MACROCYTOSIS 0
[2022-08-15] MEDS ORDERED: FUROSEMIDE 40 MG/4 ML INJECTABLE VIAL IVPUSH ONE (11:09)
[2022-08-15] MEDS ORDERED: FUROSEMIDE 40 MG/4 ML INJECTABLE VIAL ONE (12:28)
[2022-08-15] MEDS: CARVEDILOL 25 MG TABLET (FP) PO SCH (22:45)
[2022-08-15] MEDS: PANTOPRAZOLE 40 MG TABLET PO SCH (22:45)
[2022-08-15] MEDS: LACTOBACILLUS ACIDOPHILUS 1 TABLET PO SCH (22:46)
[2022-08-16 08:34] LABS: BASO % 0.8 % (0-2.0); EOS % 0.9 % (0-4.5); HEMATOCRIT 20.8 % (32.4-45.2); LYMPH % 5.6 % (8-40); MCH 29.6 pg (25.7-33.7); MCHC 33.1 g/dl (32.0-36.0); MEAN CELL VOLUME 89.6 fl (80-96); MEAN PLT VOLUME 9.1 fl (7.5-11.1); MONO % 5.9 % (3.8-10.2); NEUT % 86.8 % (42.8-82.8); PLATELET COUNT 106 10^3/uL (134-434); RBC 2.32 M/mm3 (3.60-5.2); RDW 16.3 % (11.6-15.6); WHITE BLOOD COUNT 7.7 K/mm3 (4.0-10.0)
[2022-08-16 08:42] LABS: ALBUMIN 2.4 g/dl (3.4-5.0); BLOOD UREA NITROGEN 17.4 mg/dL (7-18); CALCIUM 7.6 mg/dL (8.5-10.1); MAGNESIUM 1.5 mg/dL (1.8-2.4)
[2022-08-16 08:45] LABS: CREATININE 0.8 mg/dL (0.55-1.3); PHOSPHOROUS 3.8 mg/dL (2.5-4.9)
[2022-08-16 08:47] LABS: BILIRUBIN,TOTAL 0.6 mg/dL (0.2-1); TOT PROT 5.4 g/dl (6.4-8.2)
[2022-08-16 09:01] LABS: HEMOGLOBIN 6.9 GM/dL (10.7-15.3)
[2022-08-16] MEDS ORDERED: FUROSEMIDE 40 MG/4 ML INJECTABLE VIAL IVPUSH ONE (09:16)
[2022-08-16] MEDS ORDERED: MAGNESIUM SULF 50% (8.12 MEQ/2 ML-1 GM VIAL) IVPB ONE (09:16)
[2022-08-16] MEDS ORDERED: DOXAZOSIN MESYLATE 4 MG TABLET ONE (09:26)
[2022-08-16] MEDS: LISINOPRIL 20 MG TABLET PO SCH (09:40)
[2022-08-16] MEDS: SPIRONOLACTONE 25 MG TABLET PO SCH (09:40)
[2022-08-16] MEDS: CARVEDILOL 25 MG TABLET (FP) PO SCH ×2 (09:40→21:48)
[2022-08-16] MEDS: NIFEdipine E.R 60 MG TABLET PO SCH (09:40)
[2022-08-16] MEDS: PANTOPRAZOLE 40 MG TABLET PO SCH ×2 (09:40→21:48)
[2022-08-16] MEDS: POLYETHYLENE GLYCOL (HEALTHYLAX) 3350 17 GM PACKET PO SCH (09:48)
[2022-08-16] MEDS ORDERED: DOXAZOSIN MESYLATE 8 MG TABLET PO SCH (10:00)
[2022-08-16 10:55] LABS: RETICULOCYTES 0.87 % (0.5-1.5)
[2022-08-16 16:24] LABS: HEMATOCRIT 25.6 % (32.4-45.2); HEMOGLOBIN 8.4 GM/dL (10.7-15.3); MCHC 32.7 g/dl (32.0-36.0); MEAN CELL VOLUME 88.5 fl (80-96); MEAN PLT VOLUME 8.9 fl (7.5-11.1); PLATELET COUNT 109 10^3/uL (134-434); RBC 2.89 M/mm3 (3.60-5.2); RDW 16.2 % (11.6-15.6); WHITE BLOOD COUNT 8.1 K/mm3 (4.0-10.0)
[2022-08-16 16:29] LABS: URINE APPEARANCE CLEAR; URINE BILIRUBIN NEGATIVE (NEGATIVE); URINE COLOR YELLOW; URINE GLUCOSE (UA) NEGATIVE (NEGATIVE); URINE KETONE NEGATIVE (NEGATIVE); URINE LEUK ESTERASE NEGATIVE (NEGATIVE); URINE NITRITE NEGATIVE (NEGATIVE); URINE PROTEIN NEGATIVE (NEGATIVE); URINE UROBILINOGEN 0.2 mg/dL (0.2-1.0)
[2022-08-16] MEDS: LACTOBACILLUS ACIDOPHILUS 1 TABLET PO SCH (21:48)
[2022-08-17] MEDS: ACETAMINOPHEN 500 MG TABLET (FP) PO PRN ×2 (04:23→21:46)
[2022-08-17] MEDS: NIFEdipine E.R 60 MG TABLET PO SCH (09:24)
[2022-08-17] MEDS: CARVEDILOL 25 MG TABLET (FP) PO SCH ×2 (09:25→21:39)
[2022-08-17] MEDS: DOXAZOSIN MESYLATE 4 MG TABLET PO SCH (09:25)
[2022-08-17] MEDS: SPIRONOLACTONE 25 MG TABLET PO SCH (09:25)
[2022-08-17] MEDS: PANTOPRAZOLE 40 MG TABLET PO SCH ×2 (09:25→21:39)
[2022-08-17] MEDS: LISINOPRIL 20 MG TABLET PO SCH (09:25)
[2022-08-17] MEDS: POLYETHYLENE GLYCOL (HEALTHYLAX) 3350 17 GM PACKET PO SCH (09:27)
[2022-08-17] MEDS ORDERED: IRON SUCROSE INJECTION 200 MG in SODIUM CHLORIDE 90 ML IVPB ONE (12:00)
[2022-08-17 16:00] LABS: BASO % 0.6 % (0-2.0); EOS % 1.7 % (0-4.5); HEMATOCRIT 22.1 % (32.4-45.2); HEMOGLOBIN 7.5 GM/dL (10.7-15.3); LYMPH % 5.5 % (8-40); MCH 29.7 pg (25.7-33.7); MCHC 33.9 g/dl (32.0-36.0); MEAN CELL VOLUME 87.7 fl (80-96); MEAN PLT VOLUME 9.2 fl (7.5-11.1); MONO % 8.5 % (3.8-10.2); NEUT % 83.7 % (42.8-82.8); PLATELET COUNT 113 10^3/uL (134-434); RBC 2.52 M/mm3 (3.60-5.2); RDW 16.4 % (11.6-15.6); WHITE BLOOD COUNT 7.6 K/mm3 (4.0-10.0)
[2022-08-17 16:20] LABS: BLOOD UREA NITROGEN 15.2 mg/dL (7-18); CALCIUM 7.6 mg/dL (8.5-10.1); MAGNESIUM 1.9 mg/dL (1.8-2.4)
[2022-08-17 16:23] LABS: CREATININE 0.7 mg/dL (0.55-1.3)
[2022-08-17] MEDS: LACTOBACILLUS ACIDOPHILUS 1 TABLET PO SCH (21:39)
[2022-08-18 08:38] LABS: BASO % 0.9 % (0-2.0); EOS % 2.3 % (0-4.5); HEMATOCRIT 23.1 % (32.4-45.2); HEMOGLOBIN 7.8 GM/dL (10.7-15.3); LYMPH % 7.2 % (8-40); MCH 29.8 pg (25.7-33.7); MCHC 33.8 g/dl (32.0-36.0); MEAN CELL VOLUME 88.2 fl (80-96); MEAN PLT VOLUME 9.6 fl (7.5-11.1); MONO % 6.8 % (3.8-10.2); NEUT % 82.8 % (42.8-82.8); PLATELET COUNT 132 10^3/uL (134-434); RBC 2.62 M/mm3 (3.60-5.2); RDW 16.5 % (11.6-15.6)
[2022-08-18 08:49] LABS: CALCIUM 7.9 mg/dL (8.5-10.1)
[2022-08-18 08:50] LABS: ALBUMIN 2.4 g/dl (3.4-5.0); BLOOD UREA NITROGEN 12.8 mg/dL (7-18); MAGNESIUM 1.9 mg/dL (1.8-2.4)
[2022-08-18 08:53] LABS: CREATININE 0.7 mg/dL (0.55-1.3); PHOSPHOROUS 3.1 mg/dL (2.5-4.9)
[2022-08-18 08:54] LABS: BILIRUBIN,TOTAL 0.6 mg/dL (0.2-1)
[2022-08-18 08:55] LABS: TOT PROT 5.4 g/dl (6.4-8.2)
[2022-08-18] MEDS: DOXAZOSIN MESYLATE 4 MG TABLET PO SCH (09:37)
[2022-08-18] MEDS: PANTOPRAZOLE 40 MG TABLET PO SCH (09:38)
[2022-08-18] MEDS: POLYETHYLENE GLYCOL (HEALTHYLAX) 3350 17 GM PACKET PO SCH (09:38)
[2022-08-18] MEDS: SPIRONOLACTONE 25 MG TABLET PO SCH (09:38)
[2022-08-18] MEDS: LISINOPRIL 20 MG TABLET PO SCH (09:38)
[2022-08-18] MEDS ORDERED: CARVEDILOL 12.5 MG TABLET (FP) PO SCH (10:00)
[2022-08-18] MEDS ORDERED: FUROSEMIDE 40 MG/4 ML INJECTABLE VIAL IVPUSH ONE (11:00)
[2022-08-18] MEDS: ACETAMINOPHEN 500 MG TABLET (FP) PO PRN (21:31)
[2022-08-18] MEDS: CARVEDILOL 12.5 MG TABLET (FP) PO SCH (21:32)
[2022-08-18] MEDS: LACTOBACILLUS ACIDOPHILUS 1 TABLET PO SCH (21:32)
[2022-08-19 09:12] LABS: HEMOGLOBIN 8.3 GM/dL (10.7-15.3); MCH 29.3 pg (25.7-33.7); MCHC 33.3 g/dl (32.0-36.0); MEAN CELL VOLUME 88.1 fl (80-96); MEAN PLT VOLUME 9.4 fl (7.5-11.1); PLATELET COUNT 210 10^3/uL (134-434); RBC 2.84 M/mm3 (3.60-5.2); RDW 16.5 % (11.6-15.6); WHITE BLOOD COUNT 8.3 K/mm3 (4.0-10.0)
[2022-08-19] MEDS: POLYETHYLENE GLYCOL (HEALTHYLAX) 3350 17 GM PACKET PO SCH (09:43)
[2022-08-19] MEDS: SPIRONOLACTONE 25 MG TABLET PO SCH (09:44)
[2022-08-19] MEDS: DOXAZOSIN MESYLATE 4 MG TABLET PO SCH (09:44)
[2022-08-19] MEDS: CARVEDILOL 12.5 MG TABLET (FP) PO SCH ×2 (09:44→21:29)
[2022-08-19] MEDS: LISINOPRIL 20 MG TABLET PO SCH (09:44)
[2022-08-19 09:55] LABS: ANISOCYTOSIS 2+; MACROCYTOSIS 0
[2022-08-19] MEDS ORDERED: PANTOPRAZOLE 40 MG TABLET PO SCH (10:00)
[2022-08-19 10:09] LABS: CHLORIDE 97 mmol/L (98-107); SODIUM 134 mmol/L (136-145)
[2022-08-19 10:45] LABS: ALBUMIN 2.7 g/dl (3.4-5.0); ANION GAP 12 MMOL/L (8-16); BLOOD UREA NITROGEN 14.7 mg/dL (7-18); CALCIUM 8.1 mg/dL (8.5-10.1); CO2 26 mmol/L (21-32); GLUCOSE,RANDOM 139 mg/dL (74-106); MAGNESIUM 1.6 mg/dL (1.8-2.4)
[2022-08-19 10:48] LABS: CREATININE 0.9 mg/dL (0.55-1.3); PHOSPHOROUS 2.4 mg/dL (2.5-4.9); SGOT/AST < 3 U/L (15-37); SGPT/ALT 10 U/L (13-61)
[2022-08-19 10:50] LABS: BILIRUBIN,TOTAL 0.7 mg/dL (0.2-1); TOT PROT 5.9 g/dl (6.4-8.2)
[2022-08-19 10:51] LABS: ALK PHOS 64 U/L (45-117)
[2022-08-19] MEDS ORDERED: FUROSEMIDE 40 MG/4 ML INJECTABLE VIAL IVPUSH ONE (11:00)
[2022-08-19] MEDS ORDERED: MAGNESIUM SULF 50% (8.12 MEQ/2 ML-1 GM VIAL) IVPB ONE (13:44)
[2022-08-19] MEDS: LACTOBACILLUS ACIDOPHILUS 1 TABLET PO SCH (21:28)
[2022-08-19] MEDS: ACETAMINOPHEN 500 MG TABLET (FP) PO PRN (21:30)
[2022-08-20] MEDS: SPIRONOLACTONE 25 MG TABLET PO SCH (09:05)
[2022-08-20] MEDS: LISINOPRIL 20 MG TABLET PO SCH (09:05)
[2022-08-20] MEDS: CARVEDILOL 12.5 MG TABLET (FP) PO SCH ×2 (09:06→21:42)
[2022-08-20] MEDS: DOXAZOSIN MESYLATE 4 MG TABLET PO SCH (09:06)
[2022-08-20 09:38] LABS: BASO % 1.2 % (0-2.0); HEMATOCRIT 24.9 % (32.4-45.2); HEMOGLOBIN 8.4 GM/dL (10.7-15.3); LYMPH % 6.4 % (8-40); MCH 29.8 pg (25.7-33.7); MCHC 33.8 g/dl (32.0-36.0); MEAN CELL VOLUME 88.4 fl (80-96); MEAN PLT VOLUME 8.9 fl (7.5-11.1); NEUT % 84.4 % (42.8-82.8); PLATELET COUNT 228 10^3/uL (134-434); RBC 2.82 M/mm3 (3.60-5.2); RDW 16.5 % (11.6-15.6); WHITE BLOOD COUNT 6.6 K/mm3 (4.0-10.0)
[2022-08-20 10:00] LABS: INR 1.5 (0.83-1.09); PROTHROMBIN TIME (PATIENT) 17.3 SEC (9.7-13.0)
[2022-08-20] MEDS ORDERED: FUROSEMIDE 40 MG TABLET (FP) PO SCH (10:00)
[2022-08-20 10:04] LABS: ALBUMIN 2.7 g/dl (3.4-5.0); CALCIUM 8.3 mg/dL (8.5-10.1)
[2022-08-20 10:05] LABS: BLOOD UREA NITROGEN 12.8 mg/dL (7-18); MAGNESIUM 1.8 mg/dL (1.8-2.4)
[2022-08-20 10:08] LABS: CREATININE 0.7 mg/dL (0.55-1.3); PHOSPHOROUS 2.9 mg/dL (2.5-4.9)
[2022-08-20 10:09] LABS: BILIRUBIN,TOTAL 0.5 mg/dL (0.2-1); TOT PROT 5.9 g/dl (6.4-8.2)
[2022-08-20] MEDS ORDERED: PHYTONADIONE 10 MG/1 ML AMP IVPB STA (11:13)
[2022-08-20] MEDS ORDERED: TETRACAINE/BENZOCAINE/BUTAMBEN 20 GM SPR TP ONE ×2 (11:39→11:54)
[2022-08-20] MEDS: POLYETHYLENE GLYCOL (HEALTHYLAX) 3350 17 GM PACKET PO SCH (12:12)
[2022-08-20] MEDS: ACETAMINOPHEN 500 MG TABLET (FP) PO PRN ×2 (14:39→21:43)
[2022-08-20] MEDS: LACTOBACILLUS ACIDOPHILUS 1 TABLET PO SCH (21:42)
[2022-08-21] MEDS: LISINOPRIL 20 MG TABLET PO SCH ×2 (06:18→09:15)
[2022-08-21] MEDS: FUROSEMIDE 40 MG TABLET (FP) PO SCH (09:05)
[2022-08-21] MEDS: CARVEDILOL 12.5 MG TABLET (FP) PO SCH ×2 (09:05→21:29)
[2022-08-21] MEDS: SPIRONOLACTONE 25 MG TABLET PO SCH (09:06)
[2022-08-21] MEDS: DOXAZOSIN MESYLATE 4 MG TABLET PO SCH (09:06)
[2022-08-21] MEDS: POLYETHYLENE GLYCOL (HEALTHYLAX) 3350 17 GM PACKET PO SCH (09:07)
[2022-08-21 11:28] LABS: EOS % 2.8 % (0-4.5); HEMATOCRIT 27.5 % (32.4-45.2); HEMOGLOBIN 8.7 GM/dL (10.7-15.3); LYMPH % 5.7 % (8-40); MCH 28.8 pg (25.7-33.7); MCHC 31.6 g/dl (32.0-36.0); MEAN CELL VOLUME 91.1 fl (80-96); MEAN PLT VOLUME 9.1 fl (7.5-11.1); MONO % 5.8 % (3.8-10.2); NEUT % 84.7 % (42.8-82.8); PLATELET COUNT 257 10^3/uL (134-434); RBC 3.02 M/mm3 (3.60-5.2); RDW 16.6 % (11.6-15.6); WHITE BLOOD COUNT 7.2 K/mm3 (4.0-10.0)
[2022-08-21 12:10] LABS: CALCIUM 8.4 mg/dL (8.5-10.1)
[2022-08-21 12:12] LABS: ALBUMIN 2.6 g/dl (3.4-5.0); BLOOD UREA NITROGEN 13.5 mg/dL (7-18); MAGNESIUM 1.7 mg/dL (1.8-2.4)
[2022-08-21 12:15] LABS: CREATININE 0.7 mg/dL (0.55-1.3)
[2022-08-21 12:16] LABS: BILIRUBIN,TOTAL 0.5 mg/dL (0.2-1)
[2022-08-21] MEDS ORDERED: MAGNESIUM SULF 50% (8.12 MEQ/2 ML-1 GM VIAL) IVPB ONE (14:46)
[2022-08-21 20:56] VITALS: RESP 18
[2022-08-21] MEDS: LACTOBACILLUS ACIDOPHILUS 1 TABLET PO SCH (21:29)
[2022-08-21] MEDS: ACETAMINOPHEN 500 MG TABLET (FP) PO PRN (21:29)
[2022-08-22] MEDS: DOXAZOSIN MESYLATE 4 MG TABLET PO SCH (09:10)
[2022-08-22] MEDS: SPIRONOLACTONE 25 MG TABLET PO SCH (09:11)
[2022-08-22] MEDS: CARVEDILOL 12.5 MG TABLET (FP) PO SCH (09:11)
[2022-08-22] MEDS: POLYETHYLENE GLYCOL (HEALTHYLAX) 3350 17 GM PACKET PO SCH (09:11)
[2022-08-22] MEDS: LISINOPRIL 20 MG TABLET PO SCH (09:11)
[2022-08-22] MEDS: FUROSEMIDE 40 MG TABLET (FP) PO SCH (09:11)
[2022-08-22 09:24] LABS: HEMATOCRIT 26.2 % (32.4-45.2); HEMOGLOBIN 8.4 GM/dL (10.7-15.3); MCH 29.3 pg (25.7-33.7); MCHC 32.1 g/dl (32.0-36.0); MEAN CELL VOLUME 91.5 fl (80-96); MEAN PLT VOLUME 9.5 fl (7.5-11.1); PLATELET COUNT 287 10^3/uL (134-434); RBC 2.86 M/mm3 (3.60-5.2); RDW 17.1 % (11.6-15.6); WHITE BLOOD COUNT 6.4 K/mm3 (4.0-10.0)
[2022-08-22 09:34] LABS: CALCIUM 8.4 mg/dL (8.5-10.1)
[2022-08-22 09:35] LABS: ALBUMIN 2.8 g/dl (3.4-5.0); MAGNESIUM 1.7 mg/dL (1.8-2.4)
[2022-08-22 09:38] LABS: CREATININE 0.7 mg/dL (0.55-1.3)
[2022-08-22 09:39] LABS: BILIRUBIN,TOTAL 0.5 mg/dL (0.2-1); TOT PROT 5.9 g/dl (6.4-8.2)
[2022-08-22 10:17] LABS: ANISOCYTOSIS 2+; MACROCYTOSIS 0
[2022-08-22 11:45] VITALS: BMI 28.5
[2022-08-22 14:44] VITALS: BP 117/62; PULSE 62; TEMP 98.5
== END 2022-08-22 17:16 | disposition home or self-care (01) | DRG 811 ==
LOC: JER 08:07 → JERBED 12:48 → J4W 19:28 → J6S 08-18 10:56
PROVIDERS: ADMIT Internal Medicine; ATTEND Internal Medicine
PROC: 30233N1 Transfusion of Nonautologous Red Blood Cells into Peripheral Vein, Percutaneous Approach (ICD-10-PCS; 2022-08-15)
PROC: 0DB98ZX Excision of Duodenum, Via Natural or Artificial Opening Endoscopic, Diagnostic (ICD-10-PCS; 2022-08-20)
PROC: 0DB68ZX Excision of Stomach, Via Natural or Artificial Opening Endoscopic, Diagnostic (ICD-10-PCS; principal; 2022-08-20 12:00)
DX: D64.9 Anemia, unspecified (principal); I50.33 Acute on chronic diastolic (congestive) heart failure; K57.80 Diverticulitis of intestine, part unspecified, with perforation and abscess without bleeding; I11.0 Hypertensive heart disease with heart failure; D69.6 Thrombocytopenia, unspecified; G47.33 Obstructive sleep apnea (adult) (pediatric); K29.70 Gastritis, unspecified, without bleeding; T36.8X5A Adverse effect of other systemic antibiotics, initial encounter; Y92.89 Other specified places as the place of occurrence of the external cause; R62.7 Adult failure to thrive
CPT/HCPCS: 0241U-QW; 36415; 36430; 71045-TC-FY; 74177-TC; 80048; 80053; 80061; 81003; 82272; 82728; 82803; 83010; 83036; 83540; 83550; 83615; 83735; 83880; 84100; 84443; 84484; 85025; 85027; 85045; 85610; 85651; 85730; 86140; 86850; 86900; 86901; 86922; 87086; 88305-TC; 93005; 93010; 93306-TC; 93970-TC; 97116-GP; 97161-GP; 99285-25; J1756; P9058

== ENCOUNTER 2022-10-16 12:19 | Inpatient (IN) | payer OTHER ==
[2022-10-16 16:20] LABS: BASO % 0.9 % (0-2.0); EOS % 2.4 % (0-4.5); HEMATOCRIT 30.7 % (32.4-45.2); HEMOGLOBIN 9.9 GM/dL (10.7-15.3); LYMPH % 4.6 % (8-40); MCH 31.2 pg (25.7-33.7); MCHC 32.2 g/dl (32.0-36.0); MEAN CELL VOLUME 97.1 fl (80-96); MEAN PLT VOLUME 9.9 fl (7.5-11.1); MONO % 3.9 % (3.8-10.2); NEUT % 88.2 % (42.8-82.8); PLATELET COUNT 159 10^3/uL (134-434); RBC 3.17 M/mm3 (3.60-5.2); RDW 15.6 % (11.6-15.6); WHITE BLOOD COUNT 8.6 K/mm3 (4.0-10.0)
[2022-10-16 16:29] LABS: INR 1.37 (0.83-1.09); PROTHROMBIN TIME (PATIENT) 15.8 SEC (9.7-13.0)
[2022-10-16 16:31] LABS: ACTIVATED PTT 34.1 SECONDS (25.2-36.5)
[2022-10-16 16:43] LABS: ALBUMIN 3.1 g/dl (3.4-5.0); CALCIUM 8.2 mg/dL (8.5-10.1)
[2022-10-16 16:44] LABS: BLOOD UREA NITROGEN 19.7 mg/dL (7-18)
[2022-10-16 16:45] LABS: CREATININE 0.6 mg/dL (0.55-1.3)
[2022-10-16 16:48] LABS: BILIRUBIN,TOTAL 0.3 mg/dL (0.2-1); TOT PROT 6.4 g/dl (6.4-8.2)
[2022-10-16 17:59] LABS: N-TERMINAL BNP 3040.2 pg/ml (5-450)
[2022-10-16] MEDS ORDERED: VANCOMYCIN 1 GM in D5W (PRE-DOCKED) 1,000 MG/250 ML IVPB ONE (18:07)
[2022-10-16] MEDS ORDERED: MEROPENEM 1 GM in DEXTROSE 5%-WATER 100 ML IVPB ONE (18:07)
[2022-10-16] MEDS ORDERED: MEROPENEM 1 GM VIAL (RESTRICTED TO ID) IVPB ONE (18:13)
[2022-10-16] MEDS ORDERED: LISINOPRIL 20 MG TABLET PO ONE (18:24)
[2022-10-16] MEDS ORDERED: LISINOPRIL 20 MG TABLET ONE (18:33)
[2022-10-16] MEDS ORDERED: VANCOMYCIN/WATER FOR INJ (PEG) 1,000 MG/200 ML BAG IVPB ONE (19:25)
[2022-10-16] MEDS ORDERED: ACETAMINOPHEN 325 MG TABLET (FP) PO PRN (19:58)
[2022-10-16] MEDS ORDERED: DOCUSATE SODIUM 100 MG CAPSULE (FP) PO PRN (19:58)
[2022-10-16 20:34] LABS: MAGNESIUM 1.9 mg/dL (1.8-2.4)
[2022-10-16 20:38] LABS: PHOSPHOROUS 3.5 mg/dL (2.5-4.9)
[2022-10-16] MEDS ORDERED: SODIUM CHLORIDE FOR INHALATION 3 ML VIAL.NEB IH ONE (21:19)
[2022-10-16] MEDS ORDERED: NIFEdipine E.R 60 MG TABLET PO ONE (23:20)
[2022-10-16] MEDS ORDERED: CARVEDILOL 25 MG TABLET (FP) ONE (23:20)
[2022-10-16] MEDS ORDERED: NIFEdipine E.R. 30 MG TABLET PO ONE (23:20)
[2022-10-17] MEDS ORDERED: CARVEDILOL 25 MG TABLET (FP) PO ONE (00:03)
[2022-10-17] MEDS ORDERED: NIFEdipine E.R. 90 MG TABLET PO ONE (00:03)
[2022-10-17] MEDS ORDERED: ACETAMINOPHEN 500 MG TABLET (FP) PO PRN (01:12)
[2022-10-17] MEDS: guaiFENesin/D-METHORPHAN HB 10 ML UNIT-DOSE CUPS PO PRN ×2 (01:32→21:39)
[2022-10-17] MEDS: MEROPENEM 1 GM in DEXTROSE 5%-WATER 100 ML IVPB SCH ×4 (01:32→18:19)
[2022-10-17] MEDS ORDERED: MEROPENEM 1 GM VIAL (RESTRICTED TO ID) IVPB ONE (01:34)
[2022-10-17] MEDS: VANCOMYCIN 1 GM/200 ML PREMIX BAG (RESTRICTED TO ID ONLY) IVPB SCH ×2 (06:24→09:57)
[2022-10-17 09:17] LABS: ACTIVATED PTT 35.9 SECONDS (25.2-36.5); INR 1.59 (0.83-1.09); PROTHROMBIN TIME (PATIENT) 18.4 SEC (9.7-13.0)
[2022-10-17 09:32] LABS: CHLORIDE 92 mmol/L (98-107); SODIUM 128 mmol/L (136-145)
[2022-10-17 09:36] LABS: BASO % 1.1 % (0-2.0); EOS % 2.7 % (0-4.5); HEMATOCRIT 24.5 % (32.4-45.2); HEMOGLOBIN 8.2 GM/dL (10.7-15.3); LYMPH % 7.1 % (8-40); MCH 32.4 pg (25.7-33.7); MCHC 33.3 g/dl (32.0-36.0); MEAN CELL VOLUME 97.4 fl (80-96); MEAN PLT VOLUME 10.3 fl (7.5-11.1); MONO % 5.1 % (3.8-10.2); PLATELET COUNT 133 10^3/uL (134-434); RBC 2.52 M/mm3 (3.60-5.2); RDW 15.4 % (11.6-15.6); WHITE BLOOD COUNT 6.7 K/mm3 (4.0-10.0)
[2022-10-17 09:39] LABS: GLUCOSE,RANDOM 71 mg/dL (74-106)
[2022-10-17 09:40] LABS: ANION GAP 13 MMOL/L (8-16); BLOOD UREA NITROGEN 12.4 mg/dL (7-18); CO2 24 mmol/L (21-32)
[2022-10-17 09:43] LABS: CREATININE 0.4 mg/dL (0.55-1.3)
[2022-10-17 10:54] LABS: CALCIUM 6.4 mg/dL (8.5-10.1)
[2022-10-17] MEDS ORDERED: SODIUM CHLORIDE FOR INHALATION 3 ML VIAL.NEB IH PRN (11:02)
[2022-10-17] MEDS ORDERED: ALBUTEROL SO4 2.5/IPRATROPIUM 0.5 INH SOL 3 ML VIAL.NEB. NEB PRN (11:02)
[2022-10-17] MEDS ORDERED: NIFEdipine E.R 60 MG TABLET PO SCH (11:15)
[2022-10-17] MEDS: ALBUTEROL SO4 2.5/IPRATROPIUM 0.5 INH SOL 3 ML VIAL.NEB. NEB PRN ×2 (11:15→19:45)
[2022-10-17] MEDS: guaiFENesin 600 MG TABLET.ER (FP) PO SCH ×2 (12:22→21:38)
[2022-10-17] MEDS: CARVEDILOL 25 MG TABLET (FP) PO SCH ×2 (12:23→21:38)
[2022-10-17] MEDS: LACTOBACILLUS ACIDOPHILUS 1 TABLET PO SCH (12:23)
[2022-10-17] MEDS: LISINOPRIL 20 MG TABLET PO SCH (12:23)
[2022-10-17] MEDS: SPIRONOLACTONE 25 MG TABLET PO SCH (12:23)
[2022-10-17] MEDS ORDERED: CALCIUM CHLORIDE 10% 1 GM/10 ML *VIAL IVPB ONE (13:54)
[2022-10-17] MEDS: VANCOMYCIN 1 GM in D5W (PRE-DOCKED) 1,000 MG/250 ML IVPB SCH (14:40)
[2022-10-17] MEDS: DOXAZOSIN MESYLATE 4 MG TABLET PO SCH (14:48)
[2022-10-17] MEDS ORDERED: CALCIUM GLUCONATE IN NACL 1 GM/50 ML BAG IVPB ONE (15:30)
[2022-10-17] MEDS: POTASSIUM CHLORIDE TABS 20 MEQ TABLET.ER (FP) PO SCH (19:03)
[2022-10-17] MEDS: NIFEdipine E.R. 90 MG TABLET PO SCH (21:39)
[2022-10-18] MEDS: MEROPENEM 1 GM in DEXTROSE 5%-WATER 100 ML IVPB SCH ×4 (01:29→17:40)
[2022-10-18] MEDS: POTASSIUM CHLORIDE TABS 20 MEQ TABLET.ER (FP) PO SCH (06:25)
[2022-10-18 10:19] LABS: BASO % 0.7 % (0-2.0); EOS % 2.8 % (0-4.5); HEMATOCRIT 31.2 % (32.4-45.2); HEMOGLOBIN 10.5 GM/dL (10.7-15.3); LYMPH % 6.2 % (8-40); MCHC 33.6 g/dl (32.0-36.0); MEAN CELL VOLUME 95.2 fl (80-96); MEAN PLT VOLUME 10.6 fl (7.5-11.1); MONO % 2.7 % (3.8-10.2); NEUT % 87.6 % (42.8-82.8); PLATELET COUNT 178 10^3/uL (134-434); RBC 3.28 M/mm3 (3.60-5.2); RDW 15.1 % (11.6-15.6); WHITE BLOOD COUNT 10.2 K/mm3 (4.0-10.0)
[2022-10-18] MEDS: CARVEDILOL 25 MG TABLET (FP) PO SCH ×2 (10:48→22:29)
[2022-10-18] MEDS: guaiFENesin 600 MG TABLET.ER (FP) PO SCH ×2 (10:48→22:29)
[2022-10-18] MEDS: LISINOPRIL 20 MG TABLET PO SCH (10:49)
[2022-10-18] MEDS: SPIRONOLACTONE 25 MG TABLET PO SCH (10:49)
[2022-10-18] MEDS: LACTOBACILLUS ACIDOPHILUS 1 TABLET PO SCH (10:49)
[2022-10-18 10:53] LABS: ALBUMIN 3.2 g/dl (3.4-5.0); BLOOD UREA NITROGEN 15.9 mg/dL (7-18); MAGNESIUM 1.7 mg/dL (1.8-2.4)
[2022-10-18 10:55] LABS: CREATININE 0.8 mg/dL (0.55-1.3)
[2022-10-18 10:57] LABS: BILIRUBIN,TOTAL 0.4 mg/dL (0.2-1); TOT PROT 6.5 g/dl (6.4-8.2)
[2022-10-18 11:01] LABS: CALCIUM 8.4 mg/dL (8.5-10.1)
[2022-10-18] MEDS ORDERED: MEROPENEM 1 GM VIAL (RESTRICTED TO ID) IVPB ONE (11:39)
[2022-10-18] MEDS: DOXAZOSIN MESYLATE 4 MG TABLET PO SCH (12:30)
[2022-10-18] MEDS ORDERED: MAGNESIUM OXIDE 400 MG TABLET (FP) PO ONE ×2 (12:50→15:45)
[2022-10-18] MEDS: ALBUTEROL SO4 2.5/IPRATROPIUM 0.5 INH SOL 3 ML VIAL.NEB. NEB PRN ×2 (15:33→20:15)
[2022-10-18] MEDS: guaiFENesin/D-METHORPHAN HB 10 ML UNIT-DOSE CUPS PO PRN ×2 (16:37→22:35)
[2022-10-18] MEDS: NIFEdipine E.R. 90 MG TABLET PO SCH (22:30)
[2022-10-19] MEDS: MEROPENEM 1 GM in DEXTROSE 5%-WATER 100 ML IVPB SCH ×4 (02:43→17:08)
[2022-10-19 09:23] LABS: HEMATOCRIT 28.8 % (32.4-45.2); HEMOGLOBIN 9.8 GM/dL (10.7-15.3); MCH 32.3 pg (25.7-33.7); MEAN CELL VOLUME 95.1 fl (80-96); MEAN PLT VOLUME 10.9 fl (7.5-11.1); RBC 3.03 M/mm3 (3.60-5.2); WHITE BLOOD COUNT 9.9 K/mm3 (4.0-10.0)
[2022-10-19 09:30] LABS: PLATELET COUNT 137 10^3/uL (134-434)
[2022-10-19 10:07] LABS: CALCIUM 8.8 mg/dL (8.5-10.1)
[2022-10-19 10:12] LABS: BILIRUBIN,TOTAL 0.4 mg/dL (0.2-1); CREATININE 0.7 mg/dL (0.55-1.3); TOT PROT 6.2 g/dl (6.4-8.2)
[2022-10-19] MEDS: guaiFENesin 600 MG TABLET.ER (FP) PO SCH ×2 (10:18→21:36)
[2022-10-19] MEDS: DOXAZOSIN MESYLATE 4 MG TABLET PO SCH (10:19)
[2022-10-19] MEDS: LACTOBACILLUS ACIDOPHILUS 1 TABLET PO SCH (10:19)
[2022-10-19] MEDS: SPIRONOLACTONE 25 MG TABLET PO SCH (10:19)
[2022-10-19] MEDS: LISINOPRIL 20 MG TABLET PO SCH (10:19)
[2022-10-19] MEDS: CARVEDILOL 25 MG TABLET (FP) PO SCH ×2 (10:19→21:36)
[2022-10-19] MEDS: guaiFENesin 200 MG/10 ML 10 ML UNIT-DOSE CUPS PO PRN (15:43)
[2022-10-19] MEDS: ALBUTEROL SO4 2.5/IPRATROPIUM 0.5 INH SOL 3 ML VIAL.NEB. NEB PRN (20:01)
[2022-10-19] MEDS: guaiFENesin/CODEINE 10 ML UNIT-DOSE CUPS PO SCH (21:36)
[2022-10-19] MEDS: NIFEdipine E.R. 90 MG TABLET PO SCH (21:36)
[2022-10-20] MEDS: MEROPENEM 1 GM in DEXTROSE 5%-WATER 100 ML IVPB SCH ×3 (03:04→17:54)
[2022-10-20] MEDS: guaiFENesin 200 MG/10 ML 10 ML UNIT-DOSE CUPS PO PRN ×2 (03:57→11:18)
[2022-10-20 09:37] LABS: BASO % 0.7 % (0-2.0); EOS % 3.6 % (0-4.5); HEMOGLOBIN 10.7 GM/dL (10.7-15.3); LYMPH % 5.6 % (8-40); MCH 31.9 pg (25.7-33.7); MCHC 33.6 g/dl (32.0-36.0); MEAN PLT VOLUME 9.9 fl (7.5-11.1); MONO % 4.3 % (3.8-10.2); NEUT % 85.8 % (42.8-82.8); PLATELET COUNT 176 10^3/uL (134-434); RBC 3.37 M/mm3 (3.60-5.2); RDW 15.1 % (11.6-15.6); WHITE BLOOD COUNT 10.3 K/mm3 (4.0-10.0)
[2022-10-20] MEDS: ALBUTEROL SO4 2.5/IPRATROPIUM 0.5 INH SOL 3 ML VIAL.NEB. NEB PRN (09:45)
[2022-10-20 09:52] LABS: ALBUMIN 3.2 g/dl (3.4-5.0); BLOOD UREA NITROGEN 18.1 mg/dL (7-18); CALCIUM 8.7 mg/dL (8.5-10.1); MAGNESIUM 1.9 mg/dL (1.8-2.4)
[2022-10-20 09:55] LABS: CREATININE 0.7 mg/dL (0.55-1.3)
[2022-10-20 09:57] LABS: BILIRUBIN,TOTAL 0.4 mg/dL (0.2-1); TOT PROT 6.6 g/dl (6.4-8.2)
[2022-10-20] MEDS: LACTOBACILLUS ACIDOPHILUS 1 TABLET PO SCH (11:19)
[2022-10-20] MEDS: SPIRONOLACTONE 25 MG TABLET PO SCH (11:19)
[2022-10-20] MEDS: guaiFENesin 600 MG TABLET.ER (FP) PO SCH ×2 (11:19→22:24)
[2022-10-20] MEDS: LISINOPRIL 20 MG TABLET PO SCH ×2 (11:19→22:24)
[2022-10-20] MEDS: DOXAZOSIN MESYLATE 4 MG TABLET PO SCH (11:19)
[2022-10-20] MEDS: CARVEDILOL 25 MG TABLET (FP) PO SCH ×2 (11:19→22:24)
[2022-10-20] MEDS: ALBUTEROL SO4 2.5/IPRATROPIUM 0.5 INH SOL 3 ML VIAL.NEB. NEB SCH ×2 (13:54→20:00)
[2022-10-20] MEDS: guaiFENesin/CODEINE 10 ML UNIT-DOSE CUPS PO SCH (22:24)
[2022-10-20] MEDS: NIFEdipine E.R. 90 MG TABLET PO SCH (22:24)
[2022-10-21] MEDS: MEROPENEM 1 GM in DEXTROSE 5%-WATER 100 ML IVPB SCH ×2 (02:08→10:27)
[2022-10-21 09:05] LABS: BASO % 0.8 % (0-2.0); EOS % 4.4 % (0-4.5); HEMOGLOBIN 9.9 GM/dL (10.7-15.3); LYMPH % 8.2 % (8-40); MCH 31.5 pg (25.7-33.7); MCHC 33.1 g/dl (32.0-36.0); MEAN CELL VOLUME 95.4 fl (80-96); MEAN PLT VOLUME 9.9 fl (7.5-11.1); MONO % 5.4 % (3.8-10.2); NEUT % 81.2 % (42.8-82.8); PLATELET COUNT 172 10^3/uL (134-434); RBC 3.15 M/mm3 (3.60-5.2); RDW 15.1 % (11.6-15.6); WHITE BLOOD COUNT 8.7 K/mm3 (4.0-10.0)
[2022-10-21 09:27] LABS: ALBUMIN 2.9 g/dl (3.4-5.0); BLOOD UREA NITROGEN 19.5 mg/dL (7-18); CALCIUM 8.4 mg/dL (8.5-10.1); MAGNESIUM 1.8 mg/dL (1.8-2.4)
[2022-10-21 09:29] LABS: CREATININE 0.7 mg/dL (0.55-1.3)
[2022-10-21 09:31] LABS: BILIRUBIN,TOTAL 0.4 mg/dL (0.2-1)
[2022-10-21] MEDS: guaiFENesin 600 MG TABLET.ER (FP) PO SCH ×2 (10:27→21:55)
[2022-10-21] MEDS: CARVEDILOL 25 MG TABLET (FP) PO SCH ×2 (10:27→21:55)
[2022-10-21] MEDS: LISINOPRIL 20 MG TABLET PO SCH ×2 (10:27→21:55)
[2022-10-21] MEDS: SPIRONOLACTONE 25 MG TABLET PO SCH (10:27)
[2022-10-21] MEDS: guaiFENesin 200 MG/10 ML 10 ML UNIT-DOSE CUPS PO PRN (10:27)
[2022-10-21] MEDS: LACTOBACILLUS ACIDOPHILUS 1 TABLET PO SCH (10:27)
[2022-10-21] MEDS: DOXAZOSIN MESYLATE 4 MG TABLET PO SCH (10:28)
[2022-10-21] MEDS: ALBUTEROL SO4 2.5/IPRATROPIUM 0.5 INH SOL 3 ML VIAL.NEB. NEB SCH ×3 (10:38→21:03)
[2022-10-21] MEDS ORDERED: predniSONE 20 MG TABLET (UD) PO ONE ×2 (11:31→14:00)
[2022-10-21] MEDS ORDERED: levoFLOXacin 750 MG TABLET PO SCH (13:45)
[2022-10-21] MEDS: methylPREDNISolone NA SUCC 40 MG/1 ML VIAL IVPUSH SCH ×2 (13:54→21:54)
[2022-10-21] MEDS: NIFEdipine E.R. 90 MG TABLET PO SCH (21:55)
[2022-10-21] MEDS: guaiFENesin/CODEINE 10 ML UNIT-DOSE CUPS PO SCH (21:56)
[2022-10-22] MEDS: methylPREDNISolone NA SUCC 40 MG/1 ML VIAL IVPUSH SCH ×5 (03:00→22:44)
[2022-10-22 08:38] LABS: HEMATOCRIT 30.7 % (32.4-45.2); HEMOGLOBIN 10.1 GM/dL (10.7-15.3); MCH 31.3 pg (25.7-33.7); MCHC 32.9 g/dl (32.0-36.0); MEAN PLT VOLUME 10.1 fl (7.5-11.1); PLATELET COUNT 201 10^3/uL (134-434); RBC 3.23 M/mm3 (3.60-5.2); RDW 14.7 % (11.6-15.6); WHITE BLOOD COUNT 11.2 K/mm3 (4.0-10.0)
[2022-10-22] MEDS: ALBUTEROL SO4 2.5/IPRATROPIUM 0.5 INH SOL 3 ML VIAL.NEB. NEB SCH ×3 (08:50→20:20)
[2022-10-22 09:19] LABS: ALBUMIN 2.9 g/dl (3.4-5.0); CALCIUM 8.5 mg/dL (8.5-10.1)
[2022-10-22 09:20] LABS: BLOOD UREA NITROGEN 28.4 mg/dL (7-18); MAGNESIUM 1.9 mg/dL (1.8-2.4)
[2022-10-22 09:23] LABS: CREATININE 0.7 mg/dL (0.55-1.3)
[2022-10-22 09:24] LABS: BILIRUBIN,TOTAL 0.4 mg/dL (0.2-1); TOT PROT 6.3 g/dl (6.4-8.2)
[2022-10-22] MEDS: CARVEDILOL 25 MG TABLET (FP) PO SCH ×2 (09:49→21:54)
[2022-10-22] MEDS: LISINOPRIL 20 MG TABLET PO SCH ×2 (09:49→21:55)
[2022-10-22] MEDS: guaiFENesin 600 MG TABLET.ER (FP) PO SCH ×2 (09:49→21:55)
[2022-10-22] MEDS: DOXAZOSIN MESYLATE 4 MG TABLET PO SCH (09:49)
[2022-10-22] MEDS: LACTOBACILLUS ACIDOPHILUS 1 TABLET PO SCH (09:49)
[2022-10-22] MEDS: SPIRONOLACTONE 25 MG TABLET PO SCH (09:49)
[2022-10-22] MEDS ORDERED: ENOXAPARIN NA (PORCINE) 40 MG/0.4 ML DISP.SYRIN SQ SCH (10:00)
[2022-10-22 11:00] LABS: ANISOCYTOSIS 0; HELMET CELLS 0; HOWELL-JOLLY BODIES 0; MACROCYTOSIS 0; OVALOCYTE 0; ROULEAU 0; SICKELED CELLS 0; TARGET CELLS 0; TEAR DROP CELLS 0; TOXIC GRANULATION 0
[2022-10-22] MEDS: NIFEdipine E.R. 90 MG TABLET PO SCH (21:55)
[2022-10-22] MEDS: guaiFENesin/CODEINE 10 ML UNIT-DOSE CUPS PO SCH (21:55)
[2022-10-23] MEDS: methylPREDNISolone NA SUCC 40 MG/1 ML VIAL IVPUSH SCH ×2 (04:20→10:32)
[2022-10-23] MEDS: ALBUTEROL SO4 2.5/IPRATROPIUM 0.5 INH SOL 3 ML VIAL.NEB. NEB SCH ×3 (08:05→20:11)
[2022-10-23] MEDS: SPIRONOLACTONE 25 MG TABLET PO SCH (09:38)
[2022-10-23] MEDS: DOXAZOSIN MESYLATE 4 MG TABLET PO SCH (09:38)
[2022-10-23] MEDS: CARVEDILOL 25 MG TABLET (FP) PO SCH ×2 (09:38→22:06)
[2022-10-23] MEDS: LACTOBACILLUS ACIDOPHILUS 1 TABLET PO SCH (09:38)
[2022-10-23] MEDS: guaiFENesin 600 MG TABLET.ER (FP) PO SCH ×2 (09:38→22:06)
[2022-10-23] MEDS: LISINOPRIL 20 MG TABLET PO SCH ×2 (09:38→22:06)
[2022-10-23] MEDS: FLUTICASONE PROP 0.05% 16 GM NASAL SPRAY NS SCH (10:47)
[2022-10-23 12:00] LABS: HEMATOCRIT 34.5 % (32.4-45.2); HEMOGLOBIN 11.1 GM/dL (10.7-15.3); MCH 30.6 pg (25.7-33.7); MCHC 32.1 g/dl (32.0-36.0); MEAN CELL VOLUME 95.3 fl (80-96); MEAN PLT VOLUME 9.7 fl (7.5-11.1); PLATELET COUNT 233 10^3/uL (134-434); RBC 3.62 M/mm3 (3.60-5.2); RDW 15.2 % (11.6-15.6); WHITE BLOOD COUNT 16.9 K/mm3 (4.0-10.0)
[2022-10-23 12:18] LABS: ANISOCYTOSIS 0; HELMET CELLS 0; HOWELL-JOLLY BODIES 0; MACROCYTOSIS 0; OVALOCYTE 0; ROULEAU 0; SICKELED CELLS 0; TARGET CELLS 0; TEAR DROP CELLS 0; TOXIC GRANULATION 0
[2022-10-23 12:43] LABS: CALCIUM 8.8 mg/dL (8.5-10.1)
[2022-10-23 12:44] LABS: ALBUMIN 3.1 g/dl (3.4-5.0); MAGNESIUM 1.9 mg/dL (1.8-2.4)
[2022-10-23 12:47] LABS: CREATININE 0.8 mg/dL (0.55-1.3)
[2022-10-23 12:48] LABS: BILIRUBIN,TOTAL 0.4 mg/dL (0.2-1)
[2022-10-23 12:49] LABS: TOT PROT 6.7 g/dl (6.4-8.2)
[2022-10-23 15:07] VITALS: RESP 18
[2022-10-23] MEDS ORDERED: methylPREDNISolone NA SUCC 40 MG/1 ML VIAL IVPUSH SCH (22:00)
[2022-10-23] MEDS: guaiFENesin/CODEINE 10 ML UNIT-DOSE CUPS PO SCH (22:06)
[2022-10-23] MEDS: NIFEdipine E.R. 90 MG TABLET PO SCH (22:06)
[2022-10-24] MEDS: ALBUTEROL SO4 2.5/IPRATROPIUM 0.5 INH SOL 3 ML VIAL.NEB. NEB SCH (07:59)
[2022-10-24 08:59] LABS: BASO % 0.4 % (0-2.0); EOS % 0.1 % (0-4.5); HEMATOCRIT 35.1 % (32.4-45.2); HEMOGLOBIN 11.5 GM/dL (10.7-15.3); LYMPH % 1.9 % (8-40); MCH 31.1 pg (25.7-33.7); MCHC 32.6 g/dl (32.0-36.0); MEAN CELL VOLUME 95.1 fl (80-96); MEAN PLT VOLUME 9.3 fl (7.5-11.1); MONO % 2.4 % (3.8-10.2); NEUT % 95.2 % (42.8-82.8); PLATELET COUNT 229 10^3/uL (134-434); RBC 3.69 M/mm3 (3.60-5.2); RDW 14.7 % (11.6-15.6); WHITE BLOOD COUNT 18.8 K/mm3 (4.0-10.0)
[2022-10-24] MEDS: LACTOBACILLUS ACIDOPHILUS 1 TABLET PO SCH (09:08)
[2022-10-24] MEDS: SPIRONOLACTONE 25 MG TABLET PO SCH (09:08)
[2022-10-24] MEDS: CARVEDILOL 25 MG TABLET (FP) PO SCH (09:08)
[2022-10-24] MEDS: guaiFENesin 600 MG TABLET.ER (FP) PO SCH (09:08)
[2022-10-24] MEDS: LISINOPRIL 20 MG TABLET PO SCH (09:08)
[2022-10-24] MEDS: DOXAZOSIN MESYLATE 4 MG TABLET PO SCH (09:09)
[2022-10-24] MEDS: FLUTICASONE PROP 0.05% 16 GM NASAL SPRAY NS SCH (09:12)
[2022-10-24 09:18] VITALS: BP 131/60; PULSE 66; TEMP 97
[2022-10-24 09:18] LABS: ALBUMIN 3.1 g/dl (3.4-5.0)
[2022-10-24 09:19] LABS: BLOOD UREA NITROGEN 47.2 mg/dL (7-18)
[2022-10-24 09:22] LABS: CREATININE 0.7 mg/dL (0.55-1.3)
[2022-10-24 09:23] LABS: BILIRUBIN,TOTAL 0.8 mg/dL (0.2-1); TOT PROT 6.5 g/dl (6.4-8.2)
[2022-10-24] MEDS ORDERED: predniSONE 20 MG TABLET (UD) PO SCH (10:00)
[2022-10-24 10:21] LABS: ANISOCYTOSIS 0; MACROCYTOSIS 1+
[2022-10-24 13:25] VITALS: BMI 23.6
== END 2022-10-24 14:53 | disposition home or self-care (01) | DRG 194 ==
LOC: JER 12:19 → JERBED 18:35 → J8W 10-17 04:26
PROVIDERS: ADMIT Internal Medicine; ATTEND Nurse Practitioner Family
DX: J18.9 Pneumonia, unspecified organism (principal); I50.32 Chronic diastolic (congestive) heart failure; J98.11 Atelectasis; G47.33 Obstructive sleep apnea (adult) (pediatric); I11.0 Hypertensive heart disease with heart failure; E03.9 Hypothyroidism, unspecified
CPT/HCPCS: 0241U-QW; 36415; 71045-TC-FY; 71250-TC; 80048; 80053; 82330; 83735; 83880; 84100; 84436; 84439; 84443; 84480; 84484; 85025; 85610; 85730; 86140; 87899; 93005; 93010; 94640; 94761; 99285-25

== ENCOUNTER 2023-02-18 05:13 | Day surgery (SDC) | payer OTHER ==
[2023-02-16 14:51] VITALS: BMI 26.0
[2023-02-18 15:01] VITALS: BP 186/62; PULSE 58; RESP 18; TEMP 98
== END 2023-02-18 14:50 | disposition home or self-care (01) ==
LOC: JASU-ENDO 05:13
PROVIDERS: ATTEND Internal Medicine Gastroenterology
PROC: 0DBN8ZX Excision of Sigmoid Colon, Via Natural or Artificial Opening Endoscopic, Diagnostic (ICD-10-PCS; 2023-02-18)
PROC: 0DBP8ZX Excision of Rectum, Via Natural or Artificial Opening Endoscopic, Diagnostic (ICD-10-PCS; principal; 2023-02-18 11:30)
DX: Z12.11 Encounter for screening for malignant neoplasm of colon (principal); D12.5 Benign neoplasm of sigmoid colon; K62.1 Rectal polyp; K64.8 Other hemorrhoids; K57.30 Diverticulosis of large intestine without perforation or abscess without bleeding; K56.609 Unspecified intestinal obstruction, unspecified as to partial versus complete obstruction; I10 Essential (primary) hypertension
CPT/HCPCS: 74270-TC-FY

== ENCOUNTER 2023-05-06 18:46 | Emergency (ER) | payer OTHER ==
[2023-05-06 19:03] VITALS: BMI 25.1
[2023-05-06] MEDS ORDERED: ACETAMINOPHEN 500 MG TABLET (FP) PO ONE (22:17)
[2023-05-06] MEDS ORDERED: ACETAMINOPHEN 325 MG TABLET (FP) ONE (22:21)
[2023-05-06 22:28] LABS: BASO % 0.5 % (0-2.0); EOS % 2.1 % (0-4.5); HEMATOCRIT 36.8 % (32.4-45.2); HEMOGLOBIN 12.4 GM/dL (10.7-15.3); LYMPH % 4.4 % (8-40); MCH 32.1 pg (25.7-33.7); MCHC 33.6 g/dl (32.0-36.0); MEAN CELL VOLUME 95.7 fl (80-96); MEAN PLT VOLUME 9.3 fl (7.5-11.1); MONO % 1.5 % (3.8-10.2); NEUT % 91.5 % (42.8-82.8); PLATELET COUNT 189 10^3/uL (134-434); RBC 3.85 M/mm3 (3.60-5.2); RDW 14.7 % (11.6-15.6); WHITE BLOOD COUNT 11.5 K/mm3 (4.0-10.0)
[2023-05-06 22:50] LABS: POTASSIUM 4.9 mmol/L (3.5-5.1)
[2023-05-06 22:52] LABS: ALBUMIN 3.9 g/dl (3.4-5.0); BLOOD UREA NITROGEN 16.3 mg/dL (7-18)
[2023-05-06 22:55] LABS: CREATININE 0.7 mg/dL (0.55-1.3)
[2023-05-06 22:57] LABS: TOT PROT 7.7 g/dl (6.4-8.2)
[2023-05-06 23:00] LABS: N-TERMINAL BNP 4493.2 pg/ml (5-450)
[2023-05-06 23:38] LABS: ANISOCYTOSIS 2+; MACROCYTOSIS 0; OVALOCYTE 1+
[2023-05-06 23:41] VITALS: BP 127/67; PULSE 74; RESP 16; TEMP 99.1
[2023-05-06 23:43] LABS: BILIRUBIN,TOTAL 0.5 mg/dL (0.2-1)
== END 2023-05-07 00:35 | disposition home or self-care (01) ==
LOC: JER 18:46
DX: I10 Essential (primary) hypertension (principal); R51.9 Headache, unspecified; Z20.822 Contact with and (suspected) exposure to COVID-19
CPT/HCPCS: 0241U-QW; 36415; 70450-TC; 71046-TC-FY; 80053; 83880; 84443; 84484; 85025; 93005; 93010; 99285-25

== ENCOUNTER 2023-12-17 06:25 | Inpatient (IN) | payer OTHER ==
[2023-12-17 08:35] LABS: EPI CELLS 3 /uL (0-25.1); HYALINE CASTS 0 /uL (0-3.1); URINE APPEARANCE CLEAR; URINE BACTERIA 14 /uL (0-1359); URINE BILIRUBIN NEGATIVE (NEGATIVE); URINE COLOR YELLOW; URINE GLUCOSE (UA) NEGATIVE (NEGATIVE); URINE KETONE NEGATIVE (NEGATIVE); URINE LEUK ESTERASE TRACE (NEGATIVE); URINE NITRITE NEGATIVE (NEGATIVE); URINE PROTEIN NEGATIVE (NEGATIVE); URINE RBC 17 /uL (0-23.9); URINE UROBILINOGEN 0.2 mg/dL (0.2-1.0); URINE WBC 14 /uL (0-25.8)
[2023-12-17 08:40] LABS: HEMATOCRIT 35.3 % (32.4-45.2); HEMOGLOBIN 11.3 GM/dL (10.7-15.3); MCH 30.4 pg (25.7-33.7); MEAN CELL VOLUME 94.9 fl (80-96); MEAN PLT VOLUME 9.9 fl (7.5-11.1); PLATELET COUNT 245 10^3/uL (134-434); RBC 3.72 M/mm3 (3.60-5.2); RDW 14.3 % (11.6-15.6); WHITE BLOOD COUNT 15.6 K/mm3 (4.0-10.0)
[2023-12-17 08:50] LABS: POTASSIUM 5.2 mmol/L (3.5-5.1)
[2023-12-17 08:52] LABS: CALCIUM 8.9 mg/dL (8.5-10.1)
[2023-12-17 08:53] LABS: ALBUMIN 3.4 g/dl (3.4-5.0); BLOOD UREA NITROGEN 19.4 mg/dL (7-18)
[2023-12-17] MEDS: LACTATED RINGERS SOLUTION 1000 ML INFUS.BAG IV ONE (08:55)
[2023-12-17 08:56] LABS: CREATININE 0.7 mg/dL (0.55-1.3)
[2023-12-17 08:58] LABS: BILIRUBIN,TOTAL 0.3 mg/dL (0.2-1); TOT PROT 6.8 g/dl (6.4-8.2)
[2023-12-17 09:19] LABS: INR 1.2 (0.83-1.09); PROTHROMBIN TIME (PATIENT) 13.5 SEC (9.7-13.0)
[2023-12-17 09:21] LABS: ACTIVATED PTT 31.5 SECONDS (25.2-36.5)
[2023-12-17 09:31] LABS: ANISOCYTOSIS 0; MACROCYTOSIS 0
[2023-12-17] MEDS ORDERED: ACETAMINOPHEN 325 MG TABLET (FP) ONE (15:36)
[2023-12-17] MEDS: ACETAMINOPHEN 500 MG TABLET (FP) PO SCH (15:47)
[2023-12-17] MEDS ORDERED: hydrALAZINE HCL 25 MG TABLET (FP) PO PRN (18:51)
[2023-12-17 19:58] LABS: BASO % 0.7 % (0-2.0); EOS % 2.8 % (0-4.5); HEMATOCRIT 33.5 % (32.4-45.2); LYMPH % 3.4 % (8-40); MCH 30.9 pg (25.7-33.7); MCHC 32.7 g/dl (32.0-36.0); MEAN CELL VOLUME 94.6 fl (80-96); MEAN PLT VOLUME 9.6 fl (7.5-11.1); MONO % 3.8 % (3.8-10.2); NEUT % 89.3 % (42.8-82.8); PLATELET COUNT 246 10^3/uL (134-434); RBC 3.54 M/mm3 (3.60-5.2); RDW 14.6 % (11.6-15.6); WHITE BLOOD COUNT 13.8 K/mm3 (4.0-10.0)
[2023-12-17 21:06] LABS: OVALOCYTE 2+
[2023-12-17 21:07] LABS: PLATELET ESTIMATE ADEQUATE
[2023-12-17] MEDS: SPIRONOLACTONE 25 MG TABLET PO SCH (21:26)
[2023-12-17] MEDS: CARVEDILOL 25 MG TABLET (FP) PO SCH (21:26)
[2023-12-17] MEDS: ACETAMINOPHEN 500 MG TABLET (FP) PO PRN (22:25)
[2023-12-18] MEDS: hydrALAZINE HCL 25 MG TABLET (FP) PO PRN (05:00)
[2023-12-18 08:39] LABS: HEMATOCRIT 34.2 % (32.4-45.2); HEMOGLOBIN 11.1 GM/dL (10.7-15.3); MCH 30.9 pg (25.7-33.7); MCHC 32.6 g/dl (32.0-36.0); MEAN CELL VOLUME 94.9 fl (80-96); MEAN PLT VOLUME 9.7 fl (7.5-11.1); PLATELET COUNT 243 10^3/uL (134-434); RBC 3.61 M/mm3 (3.60-5.2); RDW 14.4 % (11.6-15.6); WHITE BLOOD COUNT 15.4 K/mm3 (4.0-10.0)
[2023-12-18 08:53] LABS: POTASSIUM 5.2 mmol/L (3.5-5.1)
[2023-12-18 09:01] LABS: CREATININE 0.7 mg/dL (0.55-1.3)
[2023-12-18 09:02] LABS: ALBUMIN 3.2 g/dl (3.4-5.0); BLOOD UREA NITROGEN 14.1 mg/dL (7-18)
[2023-12-18 09:03] LABS: BILIRUBIN,TOTAL 0.4 mg/dL (0.2-1); CALCIUM 8.6 mg/dL (8.5-10.1); TOT PROT 6.7 g/dl (6.4-8.2)
[2023-12-18 09:13] LABS: ALBUMIN 3.3 g/dl (3.4-5.0); MAGNESIUM 1.7 mg/dL (1.8-2.4)
[2023-12-18 09:16] LABS: BILIRUBIN,DIRECT 0.1 mg/dL (0.0-0.2)
[2023-12-18 09:18] LABS: BILIRUBIN,TOTAL 0.5 mg/dL (0.2-1); TOT PROT 6.5 g/dl (6.4-8.2)
[2023-12-18] MEDS: NIFEdipine E.R. 90 MG TABLET PO SCH (09:58)
[2023-12-18] MEDS: POLYETHYLENE GLYCOL (HEALTHYLAX) 3350 17 GM PACKET PO SCH (12:44)
[2023-12-18 15:27] LABS: EOS % 2.6 % (0-4.5); HEMATOCRIT 33.4 % (32.4-45.2); HEMOGLOBIN 10.8 GM/dL (10.7-15.3); LYMPH % 3.6 % (8-40); MCH 30.6 pg (25.7-33.7); MCHC 32.4 g/dl (32.0-36.0); MEAN CELL VOLUME 94.6 fl (80-96); MONO % 6.5 % (3.8-10.2); NEUT % 86.3 % (42.8-82.8); PLATELET COUNT 218 10^3/uL (134-434); RBC 3.54 M/mm3 (3.60-5.2); RDW 14.6 % (11.6-15.6); WHITE BLOOD COUNT 13.9 K/mm3 (4.0-10.0)
[2023-12-19 08:58] LABS: POTASSIUM 5.3 mmol/L (3.5-5.1)
[2023-12-19 09:00] LABS: CALCIUM 8.4 mg/dL (8.5-10.1); HEMATOCRIT 35.2 % (32.4-45.2); HEMOGLOBIN 11.3 GM/dL (10.7-15.3); MCH 30.9 pg (25.7-33.7); MCHC 32.1 g/dl (32.0-36.0); MEAN CELL VOLUME 96.3 fl (80-96); MEAN PLT VOLUME 9.6 fl (7.5-11.1); PLATELET COUNT 209 10^3/uL (134-434); RBC 3.66 M/mm3 (3.60-5.2); RDW 14.3 % (11.6-15.6); WHITE BLOOD COUNT 13.4 K/mm3 (4.0-10.0)
[2023-12-19 09:01] LABS: ALBUMIN 3.2 g/dl (3.4-5.0); BLOOD UREA NITROGEN 17.8 mg/dL (7-18); MAGNESIUM 1.7 mg/dL (1.8-2.4)
[2023-12-19 09:04] LABS: CREATININE 0.7 mg/dL (0.55-1.3)
[2023-12-19 09:05] LABS: BILIRUBIN,TOTAL 0.4 mg/dL (0.2-1); TOT PROT 6.5 g/dl (6.4-8.2)
[2023-12-19] MEDS: MAGNESIUM OXIDE 400 MG TABLET (FP) PO ONE (09:56)
[2023-12-19 10:56] LABS: ANISOCYTOSIS 0; HELMET CELLS 0; HOWELL-JOLLY BODIES 0; MACROCYTOSIS 0; OVALOCYTE 0; ROULEAU 0; SICKELED CELLS 0; TARGET CELLS 0; TEAR DROP CELLS 0; TOXIC GRANULATION 0
[2023-12-19 14:37] VITALS: BMI 22.3
[2023-12-20 08:24] LABS: POTASSIUM 5.7 mmol/L (3.5-5.1)
[2023-12-20 08:30] LABS: CALCIUM 8.4 mg/dL (8.5-10.1)
[2023-12-20 08:31] LABS: MAGNESIUM 1.8 mg/dL (1.8-2.4)
[2023-12-20 08:34] LABS: CREATININE 0.7 mg/dL (0.55-1.3)
[2023-12-20 08:35] LABS: TOT PROT 6.1 g/dl (6.4-8.2)
[2023-12-20 08:36] LABS: BILIRUBIN,TOTAL 0.4 mg/dL (0.2-1)
[2023-12-20 08:40] LABS: BASO % 1.2 % (0-2.0); EOS % 2.3 % (0-4.5); HEMATOCRIT 31.5 % (32.4-45.2); HEMOGLOBIN 10.2 GM/dL (10.7-15.3); MCH 30.9 pg (25.7-33.7); MCHC 32.5 g/dl (32.0-36.0); MEAN CELL VOLUME 94.9 fl (80-96); MEAN PLT VOLUME 9.4 fl (7.5-11.1); MONO % 5.2 % (3.8-10.2); NEUT % 87.3 % (42.8-82.8); PLATELET COUNT 200 10^3/uL (134-434); RBC 3.31 M/mm3 (3.60-5.2); RDW 14.6 % (11.6-15.6); WHITE BLOOD COUNT 12.6 K/mm3 (4.0-10.0)
[2023-12-20] MEDS: SODIUM ZIRCONIUM CYCLOSILICATE (LOKELMA) 5 GM PACKET PO ONE (13:22)
[2023-12-21 09:12] LABS: HEMATOCRIT 33.3 % (32.4-45.2); MCH 31.1 pg (25.7-33.7); MCHC 33.2 g/dl (32.0-36.0); MEAN CELL VOLUME 93.8 fl (80-96); MEAN PLT VOLUME 9.9 fl (7.5-11.1); PLATELET COUNT 220 10^3/uL (134-434); RBC 3.55 M/mm3 (3.60-5.2); RDW 14.7 % (11.6-15.6); WHITE BLOOD COUNT 15.5 K/mm3 (4.0-10.0)
[2023-12-21 09:34] LABS: POTASSIUM 4.7 mmol/L (3.5-5.1)
[2023-12-21 09:41] LABS: CALCIUM 8.5 mg/dL (8.5-10.1)
[2023-12-21 09:42] LABS: ALBUMIN 3.2 g/dl (3.4-5.0)
[2023-12-21 09:45] LABS: CREATININE 0.7 mg/dL (0.55-1.3)
[2023-12-21 09:47] LABS: TOT PROT 6.4 g/dl (6.4-8.2)
[2023-12-21 09:49] LABS: BILIRUBIN,TOTAL 0.4 mg/dL (0.2-1)
[2023-12-21 10:05] LABS: ANISOCYTOSIS 2+; MACROCYTOSIS 0
[2023-12-21] MEDS: PEG 3350/NA SULF BICARB CL/KCL 4000 ML SOLN.RECON PO ONE (10:11)
[2023-12-21] MEDS: BISACODYL 5 MG TABLET.DR (FP) PO ONE (20:55)
[2023-12-22 09:02] LABS: HEMATOCRIT 33.3 % (32.4-45.2); HEMOGLOBIN 11.1 GM/dL (10.7-15.3); MCH 31.2 pg (25.7-33.7); MCHC 33.3 g/dl (32.0-36.0); MEAN CELL VOLUME 93.6 fl (80-96); MEAN PLT VOLUME 9.5 fl (7.5-11.1); PLATELET COUNT 236 10^3/uL (134-434); RBC 3.56 M/mm3 (3.60-5.2); RDW 14.7 % (11.6-15.6); WHITE BLOOD COUNT 14.9 K/mm3 (4.0-10.0)
[2023-12-22 09:16] LABS: POTASSIUM 4.6 mmol/L (3.5-5.1)
[2023-12-22 09:18] LABS: ALBUMIN 3.1 g/dl (3.4-5.0); BLOOD UREA NITROGEN 14.5 mg/dL (7-18); CALCIUM 8.5 mg/dL (8.5-10.1); MAGNESIUM 1.9 mg/dL (1.8-2.4)
[2023-12-22 09:22] LABS: CREATININE 0.7 mg/dL (0.55-1.3)
[2023-12-22 09:23] LABS: BILIRUBIN,TOTAL 0.5 mg/dL (0.2-1); TOT PROT 6.4 g/dl (6.4-8.2)
[2023-12-22 10:10] LABS: PLATELET ESTIMATE ADEQUATE
[2023-12-22 10:59] VITALS: TEMP 98.2
[2023-12-22 11:26] VITALS: BP 146/46; PULSE 67; RESP 19
== END 2023-12-22 14:01 | disposition home or self-care (01) | DRG 394 ==
LOC: JER 06:25 → JERBED 13:29 → J8W 16:04 → OBSVTOIN 12-21 08:09
PROVIDERS: ADMIT Internal Medicine; ATTEND Nurse Practitioner Acute Care
PROC: 0DBK8ZZ Excision of Ascending Colon, Via Natural or Artificial Opening Endoscopic (ICD-10-PCS; principal; 2023-12-22 10:30)
DX: K64.8 Other hemorrhoids (principal); I50.32 Chronic diastolic (congestive) heart failure; E03.9 Hypothyroidism, unspecified; I11.0 Hypertensive heart disease with heart failure; G47.33 Obstructive sleep apnea (adult) (pediatric); D18.09 Hemangioma of other sites; F41.9 Anxiety disorder, unspecified; K76.89 Other specified diseases of liver; D72.829 Elevated white blood cell count, unspecified; K59.00 Constipation, unspecified; R63.4 Abnormal weight loss; Z68.22 Body mass index [BMI] 22.0-22.9, adult; E87.5 Hyperkalemia; K40.20 Bilateral inguinal hernia, without obstruction or gangrene, not specified as recurrent; R16.1 Splenomegaly, not elsewhere classified; R19.7 Diarrhea, unspecified; D12.2 Benign neoplasm of ascending colon; K57.90 Diverticulosis of intestine, part unspecified, without perforation or abscess without bleeding
CPT/HCPCS: 36415; 71045-TC-FY; 74177-TC; 80053; 80076; 81003; 82272; 82607; 82746; 83036; 83735; 84443; 85025; 85027; 85610; 85730; 86850; 86900; 86901; 87077; 87086; 88305-TC; 93005; 93010; 94660; 97116-GP; 97161-GP; 99285-25; G0378; Q9967

== ENCOUNTER 2024-01-22 11:49 | Inpatient (IN) | payer OTHER ==
[2024-01-22] MEDS ORDERED: ALBUTEROL SO4 2.5/IPRATROPIUM 0.5 INH SOL 3 ML VIAL.NEB. NEB ONE (12:46)
[2024-01-22] MEDS: ALBUTEROL SO4 2.5/IPRATROPIUM 0.5 INH SOL 3 ML VIAL.NEB. NEB SCH (12:52)
[2024-01-22 13:27] LABS: HEMATOCRIT 31.5 % (32.4-45.2); HEMOGLOBIN 10.5 GM/dL (10.7-15.3); MCH 31.9 pg (25.7-33.7); MCHC 33.3 g/dl (32.0-36.0); MEAN PLT VOLUME 9.4 fl (7.5-11.1); PLATELET COUNT 225 10^3/uL (134-434); RBC 3.28 M/mm3 (3.60-5.2); RDW 15.9 % (11.6-15.6); WHITE BLOOD COUNT 20.2 K/mm3 (4.0-10.0)
[2024-01-22] MEDS: SODIUM CHLORIDE 0.9% 500 ML INFUS.BAG IV ONE (13:28)
[2024-01-22 13:30] LABS: INR 1.35 (0.83-1.09); PROTHROMBIN TIME (PATIENT) 15.1 SEC (9.7-13.0)
[2024-01-22 13:33] LABS: ACTIVATED PTT 32.8 SECONDS (25.2-36.5)
[2024-01-22 13:50] LABS: POTASSIUM 4.4 mmol/L (3.5-5.1)
[2024-01-22 13:52] LABS: CALCIUM 7.9 mg/dL (8.5-10.1)
[2024-01-22 13:53] LABS: ALBUMIN 2.9 g/dl (3.4-5.0); BLOOD UREA NITROGEN 16.1 mg/dL (7-18)
[2024-01-22 13:56] LABS: CREATININE 0.8 mg/dL (0.55-1.3)
[2024-01-22 13:57] LABS: BILIRUBIN,TOTAL 0.4 mg/dL (0.2-1); TOT PROT 6.1 g/dl (6.4-8.2)
[2024-01-22 14:01] LABS: N-TERMINAL BNP 8354.2 pg/ml (5-450)
[2024-01-22 14:13] LABS: ANISOCYTOSIS 0; MACROCYTOSIS 1+; OVALOCYTE 1+
[2024-01-22] MEDS ORDERED: CEFEPIME 1 GM/100 ML BAG IVPB ONE (15:18)
[2024-01-22] MEDS: CEFEPIME HCL 1 GM VIAL (RESTRICTED TO ID) IVPB ONE (15:48)
[2024-01-22] MEDS ORDERED: VANCOMYCIN 1 GRAM (PRE-DOCKED) 1,000 MG/250 ML BAG IVPB ONE (16:25)
[2024-01-22] MEDS: VANCOMYCIN 1,000 MG in DEXTROSE 5%-WATER - 250 ML IVPB ONE (16:35)
[2024-01-22] MEDS: diphenhydrAMINE HCL 12.5 MG/5 ML UNIT-DOSE CUPS PO ONE (16:58)
[2024-01-22] MEDS: NIFEdipine E.R. 90 MG TABLET PO SCH (18:13)
[2024-01-22] MEDS ORDERED: NIFEdipine E.R 60 MG TABLET PO ONE (18:13)
[2024-01-22] MEDS ORDERED: CARVEDILOL 25 MG TABLET (FP) ONE (18:13)
[2024-01-22] MEDS ORDERED: NIFEdipine E.R. 30 MG TABLET PO ONE (18:13)
[2024-01-22] MEDS: CARVEDILOL 25 MG TABLET (FP) PO SCH (18:13)
[2024-01-22 19:28] VITALS: BMI 22.1
[2024-01-22] MEDS: ALBUTEROL SO4 2.5/IPRATROPIUM 0.5 INH SOL 3 ML VIAL.NEB. NEB PRN (21:05)
[2024-01-22] MEDS: POLYMYXIN B SULFATE/TMP 10 ML OPHTHALMIC SOLUTION OU SCH (22:10)
[2024-01-22] MEDS: guaiFENesin/CODEINE 10 ML UNIT-DOSE CUPS PO SCH (22:38)
[2024-01-22] MEDS: ACETAMINOPHEN/CAFFEINE/BUTALBITAL 1 TAB PO PRN (22:49)
[2024-01-22] MEDS: BENZOCAINE/MENTH/CETYLPYRD CL 1 EACH LOZENGE MM PRN (22:50)
[2024-01-23 09:16] LABS: EPI CELLS 2 /uL (0-25.1); HYALINE CASTS 1 /uL (0-3.1); PH,URINE 5.5 (5.0-8.0); URINE APPEARANCE CLEAR; URINE BACTERIA 2 /uL (0-1359); URINE BILIRUBIN NEGATIVE (NEGATIVE); URINE COLOR YELLOW; URINE GLUCOSE (UA) NEGATIVE (NEGATIVE); URINE KETONE NEGATIVE (NEGATIVE); URINE LEUK ESTERASE NEGATIVE (NEGATIVE); URINE NITRITE NEGATIVE (NEGATIVE); URINE PROTEIN 1+ (NEGATIVE); URINE RBC 9 /uL (0-23.9); URINE UROBILINOGEN 0.2 mg/dL (0.2-1.0); URINE WBC 7 /uL (0-25.8)
[2024-01-23] MEDS: ENOXAPARIN NA (PORCINE) 40 MG/0.4 ML DISP.SYRIN SQ SCH (09:54)
[2024-01-23 10:18] LABS: HEMATOCRIT 31.9 % (32.4-45.2); HEMOGLOBIN 10.3 GM/dL (10.7-15.3); MCH 31.3 pg (25.7-33.7); MCHC 32.5 g/dl (32.0-36.0); MEAN CELL VOLUME 96.6 fl (80-96); PLATELET COUNT 242 10^3/uL (134-434); RDW 15.8 % (11.6-15.6); WHITE BLOOD COUNT 21.3 K/mm3 (4.0-10.0)
[2024-01-23 10:37] LABS: POTASSIUM 4.1 mmol/L (3.5-5.1)
[2024-01-23 10:44] LABS: ANISOCYTOSIS 1+; MACROCYTOSIS 1+
[2024-01-23 10:46] LABS: ALBUMIN 2.9 g/dl (3.4-5.0); BLOOD UREA NITROGEN 17.6 mg/dL (7-18); MAGNESIUM 1.6 mg/dL (1.8-2.4)
[2024-01-23 10:49] LABS: CREATININE 0.7 mg/dL (0.55-1.3)
[2024-01-23 10:50] LABS: BILIRUBIN,TOTAL 0.6 mg/dL (0.2-1); TOT PROT 6.2 g/dl (6.4-8.2)
[2024-01-23] MEDS: ACETAMINOPHEN 500 MG TABLET (FP) PO PRN (11:13)
[2024-01-23] MEDS: MAGNESIUM OXIDE 400 MG TABLET (FP) PO ONE (16:36)
[2024-01-23] MEDS: ACETAMINOPHEN/CAFFEINE/BUTALBITAL 1 TAB PO ONE (21:54)
[2024-01-23] MEDS: POLYETHYLENE GLYCOL (HEALTHYLAX) 3350 17 GM PACKET PO SCH (21:54)
[2024-01-24] MEDS: MELATONIN 5 MG TABLETS PO PRN (01:36)
[2024-01-24 08:23] LABS: BASO % 0.9 % (0-2.0); EOS % 1.9 % (0-4.5); HEMATOCRIT 28.1 % (32.4-45.2); HEMOGLOBIN 9.4 GM/dL (10.7-15.3); LYMPH % 2.5 % (8-40); MCH 31.9 pg (25.7-33.7); MCHC 33.5 g/dl (32.0-36.0); MEAN CELL VOLUME 95.4 fl (80-96); MONO % 6.1 % (3.8-10.2); NEUT % 88.6 % (42.8-82.8); PLATELET COUNT 198 10^3/uL (134-434); RBC 2.95 M/mm3 (3.60-5.2); RDW 15.6 % (11.6-15.6); WHITE BLOOD COUNT 14.8 K/mm3 (4.0-10.0)
[2024-01-24 08:26] LABS: POTASSIUM 4.3 mmol/L (3.5-5.1)
[2024-01-24 08:36] LABS: CALCIUM 7.9 mg/dL (8.5-10.1)
[2024-01-24 08:37] LABS: MAGNESIUM 1.7 mg/dL (1.8-2.4)
[2024-01-24 08:41] LABS: CREATININE 0.6 mg/dL (0.55-1.3)
[2024-01-24] MEDS: guaiFENesin 600 MG TABLET.ER (FP) PO SCH (10:28)
[2024-01-24] MEDS: MAGNESIUM OXIDE 400 MG TABLET (FP) PO ONE (10:29)
[2024-01-24] MEDS: MELATONIN 5 MG TABLETS PO SCH (22:26)
[2024-01-24] MEDS: ACETAMINOPHEN/CAFFEINE/BUTALBITAL 1 TAB PO ONE (23:33)
[2024-01-25 07:54] LABS: HEMATOCRIT 28.4 % (32.4-45.2); HEMOGLOBIN 9.6 GM/dL (10.7-15.3); MCH 32.5 pg (25.7-33.7); MCHC 33.7 g/dl (32.0-36.0); MEAN CELL VOLUME 96.3 fl (80-96); MEAN PLT VOLUME 10.5 fl (7.5-11.1); PLATELET COUNT 190 10^3/uL (134-434); RBC 2.94 M/mm3 (3.60-5.2); RDW 15.6 % (11.6-15.6); WHITE BLOOD COUNT 11.3 K/mm3 (4.0-10.0)
[2024-01-25 08:11] LABS: POTASSIUM 5.1 mmol/L (3.5-5.1)
[2024-01-25 08:12] LABS: CALCIUM 8.3 mg/dL (8.5-10.1)
[2024-01-25 08:13] LABS: BLOOD UREA NITROGEN 16.3 mg/dL (7-18); MAGNESIUM 1.8 mg/dL (1.8-2.4)
[2024-01-25 08:16] LABS: CREATININE 0.6 mg/dL (0.55-1.3)
[2024-01-25 09:28] LABS: ANISOCYTOSIS 1+; MACROCYTOSIS 0
[2024-01-25 09:34] LABS: PLATELET ESTIMATE ADEQUATE
[2024-01-25] MEDS: BENZONATATE 200 MG CAPSULE PO PRN (17:39)
[2024-01-25 18:12] VITALS: RESP 20
[2024-01-26] MEDS: levoFLOXacin 750 MG TABLET PO SCH (06:24)
[2024-01-26 08:01] LABS: HEMATOCRIT 29.4 % (32.4-45.2); MCH 32.3 pg (25.7-33.7); MCHC 33.9 g/dl (32.0-36.0); MEAN CELL VOLUME 95.2 fl (80-96); MEAN PLT VOLUME 10.1 fl (7.5-11.1); PLATELET COUNT 173 10^3/uL (134-434); RBC 3.08 M/mm3 (3.60-5.2); RDW 15.4 % (11.6-15.6)
[2024-01-26 08:21] LABS: POTASSIUM 4.8 mmol/L (3.5-5.1)
[2024-01-26 08:34] LABS: CALCIUM 8.5 mg/dL (8.5-10.1)
[2024-01-26 08:35] LABS: ALBUMIN 2.8 g/dl (3.4-5.0); BLOOD UREA NITROGEN 17.2 mg/dL (7-18); MAGNESIUM 1.7 mg/dL (1.8-2.4)
[2024-01-26 08:38] LABS: CREATININE 0.6 mg/dL (0.55-1.3)
[2024-01-26 08:39] LABS: TOT PROT 5.7 g/dl (6.4-8.2)
[2024-01-26 08:40] LABS: BILIRUBIN,TOTAL 0.4 mg/dL (0.2-1)
[2024-01-26 09:24] LABS: ANISOCYTOSIS 0; HELMET CELLS 0; HOWELL-JOLLY BODIES 0; MACROCYTOSIS 0; OVALOCYTE 0; ROULEAU 0; SICKELED CELLS 0; TARGET CELLS 0; TEAR DROP CELLS 0; TOXIC GRANULATION 0
[2024-01-26] MEDS: ACETAMINOPHEN/CAFFEINE/BUTALBITAL 1 TAB PO ONE (12:00)
[2024-01-26] MEDS: ALBUTEROL SO4 2.5/IPRATROPIUM 0.5 INH SOL 3 ML VIAL.NEB. NEB PRN (15:58)
[2024-01-27 07:14] VITALS: BP 156/45; PULSE 63; TEMP 98.1
[2024-01-27 09:46] LABS: HEMATOCRIT 28.6 % (32.4-45.2); HEMOGLOBIN 9.3 GM/dL (10.7-15.3); MCH 31.7 pg (25.7-33.7); MCHC 32.4 g/dl (32.0-36.0); MEAN CELL VOLUME 97.7 fl (80-96); MEAN PLT VOLUME 9.9 fl (7.5-11.1); PLATELET COUNT 154 10^3/uL (134-434); RBC 2.92 M/mm3 (3.60-5.2); RDW 15.1 % (11.6-15.6); WHITE BLOOD COUNT 11.2 K/mm3 (4.0-10.0)
[2024-01-27 10:04] LABS: POTASSIUM 4.6 mmol/L (3.5-5.1)
[2024-01-27 10:06] LABS: CALCIUM 8.4 mg/dL (8.5-10.1)
[2024-01-27 10:07] LABS: BLOOD UREA NITROGEN 14.2 mg/dL (7-18); MAGNESIUM 1.6 mg/dL (1.8-2.4)
[2024-01-27 10:08] LABS: ALBUMIN 2.7 g/dl (3.4-5.0)
[2024-01-27 10:10] LABS: CREATININE 0.7 mg/dL (0.55-1.3)
[2024-01-27 10:11] LABS: BILIRUBIN,TOTAL 0.3 mg/dL (0.2-1); TOT PROT 5.6 g/dl (6.4-8.2)
[2024-01-27 11:07] LABS: ANISOCYTOSIS 0; MACROCYTOSIS 0
[2024-01-27 11:11] LABS: PLATELET ESTIMATE ADEQUATE
[2024-01-27] MEDS: MAGNESIUM OXIDE 400 MG TABLET (FP) PO ONE (11:16)
[2024-01-27] MEDS: SODIUM CHLORIDE NASAL SPRAY 44 ML BOTTLE NS ONE (11:45)
== END 2024-01-27 14:00 | disposition home or self-care (01) | DRG 871 ==
LOC: JER 11:49 → JERBED 13:42 → J8W 18:37
PROVIDERS: ADMIT Internal Medicine; ATTEND Nurse Practitioner Family
DX: A41.89 Other specified sepsis (principal); J18.9 Pneumonia, unspecified organism; J96.01 Acute respiratory failure with hypoxia; E87.1 Hypo-osmolality and hyponatremia; I50.32 Chronic diastolic (congestive) heart failure; D64.9 Anemia, unspecified; G43.909 Migraine, unspecified, not intractable, without status migrainosus; E03.9 Hypothyroidism, unspecified; H10.33 Unspecified acute conjunctivitis, bilateral; G47.30 Sleep apnea, unspecified; K57.90 Diverticulosis of intestine, part unspecified, without perforation or abscess without bleeding; D18.09 Hemangioma of other sites; D72.829 Elevated white blood cell count, unspecified; E83.42 Hypomagnesemia; I11.0 Hypertensive heart disease with heart failure; J02.9 Acute pharyngitis, unspecified
CPT/HCPCS: 0241U-QW; 36415; 71046-TC-FY; 71250-TC; 80048; 80053; 81003; 83735; 83880; 84100; 84484; 85025; 85610; 85730; 86850; 86900; 86901; 87040; 87070; 87077; 87081; 87086; 87205; 87899; 93005; 93010; 94640; 94761; 99285-25

== ENCOUNTER 2024-02-15 20:49 | Emergency (ER) | payer OTHER ==
[2024-02-15 21:42] VITALS: BMI 23.0
[2024-02-15] MEDS ORDERED: ACETAMINOPHEN INJECTION 100 ML IVPB ONE (23:58)
[2024-02-16] MEDS: ACETAMINOPHEN 1000 MG/100 ML BAG IVPB ONE (00:49)
[2024-02-16] MEDS ORDERED: ACETAMINOPHEN 500 MG TABLET (FP) ONE (00:51)
[2024-02-16] MEDS: ACETAMINOPHEN 500 MG TABLET (FP) PO ONE (00:54)
[2024-02-16 01:00] LABS: INR 1.22 (0.83-1.09); PROTHROMBIN TIME (PATIENT) 13.9 SEC (9.7-13.0)
[2024-02-16 01:01] LABS: HEMATOCRIT 34.5 % (32.4-45.2); HEMOGLOBIN 11.1 GM/dL (10.7-15.3); MCH 31.3 pg (25.7-33.7); MCHC 32.2 g/dl (32.0-36.0); MEAN CELL VOLUME 97.3 fl (80-96); MEAN PLT VOLUME 9.4 fl (7.5-11.1); PLATELET COUNT 225 10^3/uL (134-434); RBC 3.54 M/mm3 (3.60-5.2); RDW 15.9 % (11.6-15.6); WHITE BLOOD COUNT 13.6 K/mm3 (4.0-10.0)
[2024-02-16 01:02] LABS: ACTIVATED PTT 32.9 SECONDS (25.2-36.5)
[2024-02-16 01:41] LABS: POTASSIUM 4.6 mmol/L (3.5-5.1)
[2024-02-16 01:43] LABS: CALCIUM 8.6 mg/dL (8.5-10.1)
[2024-02-16 01:44] LABS: ALBUMIN 3.4 g/dl (3.4-5.0); BLOOD UREA NITROGEN 10.9 mg/dL (7-18); MAGNESIUM 1.6 mg/dL (1.8-2.4)
[2024-02-16 01:47] LABS: CREATININE 0.6 mg/dL (0.55-1.3)
[2024-02-16 01:48] LABS: BILIRUBIN,TOTAL 0.6 mg/dL (0.2-1)
[2024-02-16] MEDS: MAGNESIUM SULFATE IN WATER 2 GM/50 ML IVPB IVPB ONE (02:40)
[2024-02-16 04:23] VITALS: BP 176/79; PULSE 74; RESP 16; TEMP 98.6
[2024-02-16 05:38] LABS: ANISOCYTOSIS 3+; MACROCYTOSIS 0; OVALOCYTE 1+; ROULEAU 1+
== END 2024-02-16 06:40 | disposition home or self-care (01) ==
LOC: JER 20:49
DX: R51.9 Headache, unspecified (principal); I10 Essential (primary) hypertension; Z87.891 Personal history of nicotine dependence; Z20.822 Contact with and (suspected) exposure to COVID-19
CPT/HCPCS: 0241U-QW; 36415; 70450-TC; 71045-TC-FY; 80053; 83735; 84484; 85025; 85610; 85730; 93005; 93010; 99285-25

== ENCOUNTER 2024-04-20 16:07 | Inpatient (IN) | payer OTHER ==
[~2024-04-20 16:07] MED LIST: MEROPENEM 1 GM in DEXTROSE 5%-WATER 100 ML IVPB SCH
[2024-04-20 18:19] LABS: BASO % 0.8 % (0-2.0); EOS % 2.2 % (0-4.5); HEMATOCRIT 29.3 % (32.4-45.2); HEMOGLOBIN 9.3 GM/dL (10.7-15.3); LYMPH % 1.8 % (8-40); MCH 29.8 pg (25.7-33.7); MCHC 31.6 g/dl (32.0-36.0); MEAN CELL VOLUME 94.3 fl (80-96); MEAN PLT VOLUME 10.5 fl (7.5-11.1); MONO % 2.4 % (3.8-10.2); NEUT % 92.8 % (42.8-82.8); PLATELET COUNT 163 10^3/uL (134-434); RBC 3.11 M/mm3 (3.60-5.2); RDW 14.2 % (11.6-15.6); WHITE BLOOD COUNT 14.2 K/mm3 (4.0-10.0)
[2024-04-20 18:26] LABS: INR 1.4 (0.83-1.09); PROTHROMBIN TIME (PATIENT) 15.7 SEC (9.7-13.0)
[2024-04-20] MEDS ORDERED: ACETAMINOPHEN INJECTION 100 ML ONE (18:26)
[2024-04-20 18:29] LABS: ACTIVATED PTT 26.6 SECONDS (25.2-36.5)
[2024-04-20] MEDS: ACETAMINOPHEN 1000 MG/100 ML BAG IVPB ONE (18:34)
[2024-04-20 18:35] LABS: POTASSIUM 5.5 mmol/L (3.5-5.1)
[2024-04-20] MEDS: LACTATED RINGERS SOLUTION 1000 ML INFUS.BAG IV ONE (18:35)
[2024-04-20 18:37] LABS: ALBUMIN 2.8 g/dl (3.4-5.0); CALCIUM 8.3 mg/dL (8.5-10.1)
[2024-04-20 18:38] LABS: BLOOD UREA NITROGEN 15.4 mg/dL (7-18)
[2024-04-20 18:40] LABS: CREATININE 0.7 mg/dL (0.55-1.3)
[2024-04-20 18:42] LABS: BILIRUBIN,TOTAL 0.4 mg/dL (0.2-1); TOT PROT 5.9 g/dl (6.4-8.2)
[2024-04-20 19:40] LABS: URINE COLOR YELLOW
[2024-04-20 19:41] LABS: URINE BILIRUBIN NEGATIVE (NEGATIVE); URINE GLUCOSE (UA) NEGATIVE (NEGATIVE); URINE KETONE NEGATIVE (NEGATIVE); URINE LEUK ESTERASE NEGATIVE (NEGATIVE); URINE NITRITE NEGATIVE (NEGATIVE); URINE PROTEIN 30 (NEGATIVE); URINE UROBILINOGEN 0.2 mg/dL (0.2-1.0)
[2024-04-20 19:42] LABS: URINE APPEARANCE CLEAR
[2024-04-20] MEDS ORDERED: LINEZOLID 600 MG PREMIX BAG 600 MG/300 ML BAG IVPB ONE (19:55)
[2024-04-20] MEDS: LINEZOLID 600 MG PREMIX BAG 600 MG in PREMIX 300 IV ONE (20:03)
[2024-04-20] MEDS ORDERED: MEROPENEM 1 GM VIAL (RESTRICTED TO ID) IVPB ONE (20:10)
[2024-04-20] MEDS: MEROPENEM 1 GM in DEXTROSE 5%-WATER 100 ML IVPB ONE (20:15)
[2024-04-20] MEDS: DAPTOMYCIN 300 MG in SODIUM CHLORIDE 50 ML IVPB ONE (21:49)
[2024-04-21] MEDS ORDERED: ALBUTEROL SO4 0.083% IH SOL 2.5 MG/3 ML VIAL.NEB. NEB ONE ×3 (00:22→20:50)
[2024-04-21] MEDS ORDERED: NIFEdipine E.R. 30 MG TABLET PO ONE ×2 (00:22→09:15)
[2024-04-21] MEDS ORDERED: MELATONIN 5 MG TABLETS ONE (00:24)
[2024-04-21] MEDS: ALBUTEROL SO4 0.083% IH SOL 2.5 MG/3 ML VIAL.NEB. NEB SCH (00:46)
[2024-04-21] MEDS: MELATONIN 5 MG TABLETS PO ONE (00:46)
[2024-04-21] MEDS: NIFEdipine E.R. 30 MG TABLET PO SCH (00:46)
[2024-04-21 01:45] LABS: POTASSIUM 5.4 mmol/L (3.5-5.1)
[2024-04-21 01:46] LABS: CALCIUM 8.4 mg/dL (8.5-10.1)
[2024-04-21 01:47] LABS: BLOOD UREA NITROGEN 15.8 mg/dL (7-18)
[2024-04-21 01:48] LABS: MAGNESIUM 1.6 mg/dL (1.8-2.4)
[2024-04-21 01:50] LABS: PHOSPHOROUS 3.5 mg/dL (2.5-4.9)
[2024-04-21 01:51] LABS: CREATININE 0.7 mg/dL (0.55-1.3)
[2024-04-21] MEDS ORDERED: MEROPENEM 1 GM VIAL (RESTRICTED TO ID) IVPB ONE ×3 (05:15→20:50)
[2024-04-21] MEDS: MEROPENEM 1 GM in DEXTROSE 5%-WATER 100 ML IVPB SCH ×3 (05:18→21:04)
[2024-04-21] MEDS ORDERED: ACETAMINOPHEN INJECTION 100 ML ONE ×3 (06:45→21:38)
[2024-04-21] MEDS: ACETAMINOPHEN 1000 MG/100 ML BAG IVPB ONE (07:53)
[2024-04-21 08:46] LABS: HEMATOCRIT 26.2 % (32.4-45.2); HEMOGLOBIN 8.5 GM/dL (10.7-15.3); MCH 30.4 pg (25.7-33.7); MCHC 32.4 g/dl (32.0-36.0); MEAN CELL VOLUME 93.6 fl (80-96); MEAN PLT VOLUME 10.3 fl (7.5-11.1); PLATELET COUNT 161 10^3/uL (134-434); RDW 14.4 % (11.6-15.6); WHITE BLOOD COUNT 13.8 K/mm3 (4.0-10.0)
[2024-04-21 09:00] LABS: POTASSIUM 5.3 mmol/L (3.5-5.1)
[2024-04-21 09:07] LABS: ALBUMIN 2.5 g/dl (3.4-5.0); CALCIUM 8.1 mg/dL (8.5-10.1)
[2024-04-21 09:08] LABS: CREATININE 0.7 mg/dL (0.55-1.3); MAGNESIUM 1.6 mg/dL (1.8-2.4)
[2024-04-21 09:10] LABS: BILIRUBIN,TOTAL 0.4 mg/dL (0.2-1); PHOSPHOROUS 3.6 mg/dL (2.5-4.9); TOT PROT 5.3 g/dl (6.4-8.2)
[2024-04-21] MEDS ORDERED: MAGNESIUM SULFATE IN WATER 2 GM/50 ML IVPB IVPB ONE (09:13)
[2024-04-21] MEDS: MAGNESIUM 2GM/50ML STERILE WATER IVPB IVPB ONE (09:15)
[2024-04-21] MEDS ORDERED: NIFEdipine E.R 60 MG TABLET PO ONE (09:15)
[2024-04-21] MEDS: NIFEdipine E.R. 90 MG TABLET PO SCH (09:20)
[2024-04-21] MEDS: SODIUM ZIRCONIUM CYCLOSILICATE (LOKELMA) 5 GM PACKET PO SCH ×2 (09:58→14:55)
[2024-04-21] MEDS ORDERED: DAPTOMYCIN 300 MG in SODIUM CHLORIDE 50 ML IVPB SCH (10:00)
[2024-04-21] MEDS ORDERED: ENOXAPARIN NA (PORCINE) 40 MG/0.4 ML DISP.SYRIN SQ SCH (10:00)
[2024-04-21] MEDS ORDERED: CARVEDILOL 25 MG TABLET (FP) PO SCH (10:00)
[2024-04-21] MEDS ORDERED: DEXTROSE 50%-WATER 25 GM/50 ML DISP.SYRIN ONE (13:32)
[2024-04-21] MEDS ORDERED: INSULIN REGULAR HUMAN 100 UNITS/ML *VIAL ONE (13:32)
[2024-04-21] MEDS: DEXTROSE 50%-WATER - 25 GM/50 ML VIAL IVPUSH ONE (13:48)
[2024-04-21] MEDS: INSULIN REGULAR HUMAN 100 UNITS/ML *VIAL IVPUSH ONE (13:48)
[2024-04-21] MEDS: INSULIN (LEVEMIR) 100 UNITS/ML UNITS SQ ONE (13:57)
[2024-04-21] MEDS ORDERED: SODIUM ZIRCONIUM CYCLOSILICATE (LOKELMA) 10 GM PACKET ONE (14:02)
[2024-04-21] MEDS ORDERED: INSULIN REGULAR HUMAN 100 UNITS/ML *VIAL IVPUSH ONE (14:30)
[2024-04-21 15:29] LABS: POTASSIUM 5.3 mmol/L (3.5-5.1)
[2024-04-21 15:30] LABS: CALCIUM 8.3 mg/dL (8.5-10.1)
[2024-04-21 15:31] LABS: BLOOD UREA NITROGEN 15.5 mg/dL (7-18)
[2024-04-21 15:35] LABS: CREATININE 0.7 mg/dL (0.55-1.3)
[2024-04-21] MEDS: CARVEDILOL 25 MG TABLET (FP) PO SCH (15:37)
[2024-04-21] MEDS: SODIUM CHLORIDE 1,000 ML IV SCH (17:33)
[2024-04-21] MEDS: ACETAMINOPHEN 1000 MG/100 ML BAG IVPB PRN (21:43)
[2024-04-22 11:22] LABS: HEMATOCRIT 29.7 % (32.4-45.2); HEMOGLOBIN 9.3 GM/dL (10.7-15.3); MCH 29.8 pg (25.7-33.7); MCHC 31.3 g/dl (32.0-36.0); MEAN CELL VOLUME 95.1 fl (80-96); MEAN PLT VOLUME 9.8 fl (7.5-11.1); PLATELET COUNT 167 10^3/uL (134-434); RBC 3.13 M/mm3 (3.60-5.2); RDW 13.9 % (11.6-15.6); WHITE BLOOD COUNT 14.7 K/mm3 (4.0-10.0)
[2024-04-22 12:02] LABS: ANISOCYTOSIS 0; MACROCYTOSIS 0; POTASSIUM 4.6 mmol/L (3.5-5.1)
[2024-04-22 12:04] LABS: CALCIUM 8.4 mg/dL (8.5-10.1)
[2024-04-22 12:05] LABS: ALBUMIN 2.4 g/dl (3.4-5.0)
[2024-04-22 12:08] LABS: CREATININE 0.5 mg/dL (0.55-1.3)
[2024-04-22 12:10] LABS: BILIRUBIN,TOTAL 0.5 mg/dL (0.2-1); TOT PROT 5.1 g/dl (6.4-8.2)
[2024-04-22] MEDS ORDERED: LIDOCAINE HCL 1%, 10 MG/ML (20ML VIAL) ONE (12:19)
[2024-04-22] MEDS ORDERED: SEVOFLURANE 250 ML BTL ONE (12:50)
[2024-04-22] MEDS ORDERED: PROPOFOL 20 ML ONE (12:50)
[2024-04-22] MEDS ORDERED: MIDAZOLAM HCL 2 MG/2 ML SINGLE DOSE VIAL ONE (12:50)
[2024-04-22] MEDS ORDERED: LIDOCAINE 1%/EPI 1:100000 (20 ML MULTI DOSE VIAL) ONE (13:06)
[2024-04-22] MEDS ORDERED: BUPIVACAINE HCL/PF 0.5% (5MG/ML) 10 ML VIAL ONE ×2 (13:06→13:18)
[2024-04-22] MEDS ORDERED: LIDOCAINE HCL/PF 2% SDV 5ML VIAL ONE (13:08)
[2024-04-22] MEDS ORDERED: DEXAMETHASONE SOD PHOSPHATE 4 MG/1 ML VIAL ONE ×2 (13:08→13:21)
[2024-04-22] MEDS ORDERED: ONDANSETRON 4 MG/2 ML VIAL ONE (13:08)
[2024-04-22] MEDS: LIDOCAINE 1%/EPI 1:100000 (20 ML MULTI DOSE VIAL) IJ ONE (13:24)
[2024-04-22] MEDS: BUPIVACAINE HCL/PF 0.5% (5 MG/ML) 30 ML VIAL IJ ONE (13:24)
[2024-04-22] MEDS ORDERED: ACETAMINOPHEN INJECTION 100 ML ONE (13:27)
[2024-04-22] MEDS: SODIUM CHLORIDE 1,000 ML IV SCH (14:01)
[2024-04-22] MEDS ORDERED: ONDANSETRON 4 MG/2 ML VIAL IVPUSH PRN ×3 (14:05→15:55)
[2024-04-22] MEDS ORDERED: oxyCODONE HCL 5 MG TABLET PO PRN ×6 (14:05→15:55)
[2024-04-22] MEDS ORDERED: ACETAMINOPHEN 1000 MG/100 ML BAG IVPB PRN ×2 (14:58→15:55)
[2024-04-22] MEDS ORDERED: INSULIN REGULAR HUMAN 100 UNITS/ML *VIAL IVPUSH ONE ×2 (14:58→15:55)
[2024-04-22] MEDS ORDERED: MEROPENEM 1 GM in DEXTROSE 5%-WATER 100 ML IVPB SCH (18:00)
[2024-04-22] MEDS: MEROPENEM 1 GM in DEXTROSE 5%-WATER 100 ML IVPB SCH (18:13)
[2024-04-22] MEDS ORDERED: ALBUTEROL SO4 0.083% IH SOL 2.5 MG/3 ML VIAL.NEB. NEB SCH (20:00)
[2024-04-22] MEDS: ALBUTEROL SO4 0.083% IH SOL 2.5 MG/3 ML VIAL.NEB. NEB SCH (20:51)
[2024-04-23 07:49] LABS: HEMATOCRIT 32.6 % (32.4-45.2); HEMOGLOBIN 10.2 GM/dL (10.7-15.3); MCH 29.7 pg (25.7-33.7); MCHC 31.3 g/dl (32.0-36.0); MEAN PLT VOLUME 10.5 fl (7.5-11.1); PLATELET COUNT 186 10^3/uL (134-434); RBC 3.43 M/mm3 (3.60-5.2); RDW 14.4 % (11.6-15.6); WHITE BLOOD COUNT 20.2 K/mm3 (4.0-10.0)
[2024-04-23 08:08] LABS: POTASSIUM 5.1 mmol/L (3.5-5.1)
[2024-04-23 08:12] LABS: ALBUMIN 2.2 g/dl (3.4-5.0)
[2024-04-23 08:15] LABS: CREATININE 0.6 mg/dL (0.55-1.3); PHOSPHOROUS 4.1 mg/dL (2.5-4.9)
[2024-04-23 08:16] LABS: CALCIUM 7.9 mg/dL (8.5-10.1)
[2024-04-23 08:17] LABS: BILIRUBIN,TOTAL 0.4 mg/dL (0.2-1); BLOOD UREA NITROGEN 21.7 mg/dL (7-18); MAGNESIUM 1.9 mg/dL (1.8-2.4)
[2024-04-23 09:14] LABS: ANISOCYTOSIS 0; HELMET CELLS 0; HOWELL-JOLLY BODIES 0; MACROCYTOSIS 0; OVALOCYTE 0; ROULEAU 0; SICKELED CELLS 0; TARGET CELLS 0; TEAR DROP CELLS 0; TOXIC GRANULATION 0
[2024-04-23] MEDS: SODIUM ZIRCONIUM CYCLOSILICATE (LOKELMA) 5 GM PACKET PO SCH (09:23)
[2024-04-23] MEDS ORDERED: SODIUM ZIRCONIUM CYCLOSILICATE (LOKELMA) 5 GM PACKET PO SCH (10:00)
[2024-04-23] MEDS ORDERED: NIFEdipine E.R. 90 MG TABLET PO SCH (10:00)
[2024-04-23] MEDS: NIFEdipine E.R. 30 MG TABLET PO SCH (10:37)
[2024-04-23] MEDS: SODIUM CHLORIDE 1,000 ML IV SCH ×2 (10:40→13:08)
[2024-04-23] MEDS: ACETAMINOPHEN 500 MG TABLET (FP) PO ONE (21:56)
[2024-04-24 07:20] LABS: HEMATOCRIT 31.6 % (32.4-45.2); MCH 29.8 pg (25.7-33.7); MCHC 31.5 g/dl (32.0-36.0); MEAN CELL VOLUME 94.8 fl (80-96); MEAN PLT VOLUME 9.7 fl (7.5-11.1); PLATELET COUNT 234 10^3/uL (134-434); RBC 3.33 M/mm3 (3.60-5.2); RDW 14.2 % (11.6-15.6); WHITE BLOOD COUNT 19.9 K/mm3 (4.0-10.0)
[2024-04-24 07:51] LABS: POTASSIUM 5.1 mmol/L (3.5-5.1)
[2024-04-24 07:59] LABS: CALCIUM 7.9 mg/dL (8.5-10.1); CREATININE 0.7 mg/dL (0.55-1.3)
[2024-04-24 08:00] LABS: ALBUMIN 2.4 g/dl (3.4-5.0); BLOOD UREA NITROGEN 22.2 mg/dL (7-18); MAGNESIUM 1.9 mg/dL (1.8-2.4)
[2024-04-24 08:01] LABS: BILIRUBIN,TOTAL 0.2 mg/dL (0.2-1); TOT PROT 5.4 g/dl (6.4-8.2)
[2024-04-24 09:11] LABS: ANISOCYTOSIS 0; HELMET CELLS 0; HOWELL-JOLLY BODIES 0; MACROCYTOSIS 0; OVALOCYTE 0; ROULEAU 0; SICKELED CELLS 0; TARGET CELLS 0; TEAR DROP CELLS 0; TOXIC GRANULATION 0
[2024-04-24] MEDS: ENOXAPARIN NA (PORCINE) 60 MG/0.6 ML DISP.SYRIN SQ SCH (14:06)
[2024-04-24] MEDS: ACETAMINOPHEN 500 MG TABLET (FP) PO ONE (22:23)
[2024-04-24] MEDS: ACETAMINOPHEN 1000 MG/100 ML BAG IVPB ONE (23:03)
[2024-04-25 07:54] LABS: HEMATOCRIT 29.6 % (32.4-45.2); HEMOGLOBIN 9.2 GM/dL (10.7-15.3); MCH 29.9 pg (25.7-33.7); MCHC 31.2 g/dl (32.0-36.0); MEAN CELL VOLUME 95.7 fl (80-96); MEAN PLT VOLUME 9.6 fl (7.5-11.1); PLATELET COUNT 226 10^3/uL (134-434); RBC 3.09 M/mm3 (3.60-5.2); RDW 13.9 % (11.6-15.6); WHITE BLOOD COUNT 15.8 K/mm3 (4.0-10.0)
[2024-04-25 08:06] LABS: POTASSIUM 4.6 mmol/L (3.5-5.1)
[2024-04-25 08:13] LABS: ALBUMIN 2.6 g/dl (3.4-5.0); BLOOD UREA NITROGEN 18.3 mg/dL (7-18); CALCIUM 8.2 mg/dL (8.5-10.1); MAGNESIUM 1.7 mg/dL (1.8-2.4)
[2024-04-25 08:16] LABS: BILIRUBIN,TOTAL 0.5 mg/dL (0.2-1); CREATININE 0.5 mg/dL (0.55-1.3); TOT PROT 5.3 g/dl (6.4-8.2)
[2024-04-25 08:17] LABS: PHOSPHOROUS 2.8 mg/dL (2.5-4.9)
[2024-04-25 09:32] LABS: ANISOCYTOSIS 1+; MACROCYTOSIS 1+
[2024-04-25] MEDS: MAGNESIUM OXIDE 400 MG TABLET (FP) PO ONE (12:20)
[2024-04-25] MEDS: MAGNESIUM SULF 50% (8.12 MEQ/2 ML-1 GM VIAL) IVPB ONE (12:41)
[2024-04-25 14:52] VITALS: BMI 26.9
[2024-04-25] MEDS: MAGNESIUM OXIDE 400 MG TABLET (FP) PO SCH (16:54)
[2024-04-25] MEDS: APIXABAN 2.5 MG TABLET PO SCH (21:51)
[2024-04-25] MEDS: metoPROLOL SUCCINATE 25 MG TAB.SR.24H (FP) PO SCH (21:52)
[2024-04-26] MEDS: ACETAMINOPHEN 325 MG TABLET (FP) PO PRN (03:19)
[2024-04-26 06:22] LABS: HEMATOCRIT 26.7 % (32.4-45.2); HEMOGLOBIN 8.4 GM/dL (10.7-15.3); MCH 29.9 pg (25.7-33.7); MCHC 31.3 g/dl (32.0-36.0); MEAN CELL VOLUME 95.6 fl (80-96); MEAN PLT VOLUME 8.6 fl (7.5-11.1); PLATELET COUNT 193 10^3/uL (134-434); RBC 2.79 M/mm3 (3.60-5.2); RDW 14.1 % (11.6-15.6); WHITE BLOOD COUNT 14.5 K/mm3 (4.0-10.0)
[2024-04-26 06:38] LABS: POTASSIUM 4.2 mmol/L (3.5-5.1)
[2024-04-26 06:40] LABS: ALBUMIN 2.4 g/dl (3.4-5.0); BLOOD UREA NITROGEN 15.4 mg/dL (7-18); CALCIUM 7.7 mg/dL (8.5-10.1); MAGNESIUM 1.8 mg/dL (1.8-2.4)
[2024-04-26 06:43] LABS: CREATININE 0.4 mg/dL (0.55-1.3)
[2024-04-26 06:44] LABS: PHOSPHOROUS 2.7 mg/dL (2.5-4.9)
[2024-04-26 06:45] LABS: BILIRUBIN,TOTAL 0.4 mg/dL (0.2-1); TOT PROT 5.2 g/dl (6.4-8.2)
[2024-04-26 09:35] LABS: ANISOCYTOSIS 2+; MACROCYTOSIS 0
[2024-04-26] MEDS: FUROSEMIDE 40 MG/4 ML INJECTABLE VIAL IVPUSH SCH (11:33)
[2024-04-26] MEDS: metroNIDAZOLE 250 MG TABLET PO SCH (13:36)
[2024-04-26] MEDS: POLYETHYLENE GLYCOL (HEALTHYLAX) 3350 17 GM PACKET PO ONE (20:11)
[2024-04-27 08:03] LABS: HEMOGLOBIN 8.6 GM/dL (10.7-15.3); MCH 30.5 pg (25.7-33.7); MCHC 31.7 g/dl (32.0-36.0); MEAN CELL VOLUME 96.3 fl (80-96); PLATELET COUNT 183 10^3/uL (134-434); RBC 2.81 M/mm3 (3.60-5.2); RDW 13.7 % (11.6-15.6); WHITE BLOOD COUNT 13.8 K/mm3 (4.0-10.0)
[2024-04-27 08:22] LABS: POTASSIUM 4.4 mmol/L (3.5-5.1)
[2024-04-27 08:26] LABS: BLOOD UREA NITROGEN 18.9 mg/dL (7-18); CALCIUM 8.1 mg/dL (8.5-10.1); MAGNESIUM 1.7 mg/dL (1.8-2.4)
[2024-04-27 08:29] LABS: CREATININE 0.5 mg/dL (0.55-1.3)
[2024-04-27] MEDS: POLYETHYLENE GLYCOL (HEALTHYLAX) 3350 17 GM PACKET PO ONE (08:45)
[2024-04-27] MEDS: FUROSEMIDE 40 MG TABLET (FP) PO SCH (09:20)
[2024-04-27 10:02] LABS: ANISOCYTOSIS 0; HELMET CELLS 0; HOWELL-JOLLY BODIES 0; MACROCYTOSIS 0; OVALOCYTE 0; ROULEAU 0; SICKELED CELLS 0; TARGET CELLS 0; TEAR DROP CELLS 0; TOXIC GRANULATION 0
[2024-04-27] MEDS: MAGNESIUM 2GM/50ML STERILE WATER IVPB IVPB ONE (11:48)
[2024-04-27] MEDS: MAGNESIUM OXIDE 400 MG TABLET (FP) PO ONE (13:02)
[2024-04-27] MEDS: MAGNESIUM OXIDE 400 MG TABLET (FP) PO SCH (17:48)
[2024-04-27] MEDS: POLYETHYLENE GLYCOL (HEALTHYLAX) 3350 17 GM PACKET PO SCH (21:39)
[2024-04-28] MEDS: MAGNESIUM 2GM/50ML STERILE WATER IVPB IVPB ONE (10:36)
[2024-04-28 10:43] LABS: HEMATOCRIT 27.6 % (32.4-45.2); HEMOGLOBIN 8.6 GM/dL (10.7-15.3); MCH 29.6 pg (25.7-33.7); MCHC 31.2 g/dl (32.0-36.0); MEAN CELL VOLUME 94.9 fl (80-96); MEAN PLT VOLUME 9.8 fl (7.5-11.1); PLATELET COUNT 205 10^3/uL (134-434); RBC 2.91 M/mm3 (3.60-5.2); RDW 14.3 % (11.6-15.6); WHITE BLOOD COUNT 11.3 K/mm3 (4.0-10.0)
[2024-04-28] MEDS: MAGNESIUM OXIDE 400 MG TABLET (FP) PO SCH (11:01)
[2024-04-28 11:07] LABS: POTASSIUM 4.9 mmol/L (3.5-5.1)
[2024-04-28 11:09] LABS: ANISOCYTOSIS 3+; MACROCYTOSIS 0
[2024-04-28 11:12] LABS: CALCIUM 8.4 mg/dL (8.5-10.1)
[2024-04-28 11:13] LABS: ALBUMIN 2.6 g/dl (3.4-5.0); BLOOD UREA NITROGEN 22.6 mg/dL (7-18); MAGNESIUM 1.9 mg/dL (1.8-2.4)
[2024-04-28 11:16] LABS: CREATININE 0.6 mg/dL (0.55-1.3); PHOSPHOROUS 2.9 mg/dL (2.5-4.9)
[2024-04-28 11:17] LABS: BILIRUBIN,TOTAL 0.5 mg/dL (0.2-1); TOT PROT 5.3 g/dl (6.4-8.2)
[2024-04-28] MEDS: ESCITALOPRAM OXALATE 10 MG TABLET PO SCH (12:14)
[2024-04-28] MEDS: MELATONIN 5 MG TABLETS PO ONE (22:46)
[2024-04-29] MEDS: NIFEdipine E.R 60 MG TABLET PO SCH (10:13)
[2024-04-29] MEDS: ESCITALOPRAM OXALATE 10 MG TABLET PO SCH (13:26)
[2024-04-30] MEDS: NIFEdipine E.R. 30 MG TABLET PO SCH (10:12)
[2024-04-30] MEDS: metroNIDAZOLE 250 MG TABLET PO SCH (22:58)
[2024-05-01] MEDS: LISINOPRIL 5 MG TABLET PO SCH (10:26)
[2024-05-01] MEDS: MAG HYDROX/AL HYDROX/SIMETH 30 ML UNIT-DOSE CUP PO PRN (18:07)
[2024-05-02] MEDS ORDERED: LISINOPRIL 5 MG TABLET PO SCH (12:50)
[2024-05-02] MEDS: metoPROLOL SUCCINATE 25 MG TAB.SR.24H (FP) PO SCH (21:55)
[2024-05-03 08:24] LABS: POTASSIUM 3.6 mmol/L (3.5-5.1)
[2024-05-03 08:30] LABS: CALCIUM 7.8 mg/dL (8.5-10.1)
[2024-05-03 08:34] LABS: CREATININE 0.5 mg/dL (0.55-1.3)
[2024-05-03] MEDS: FUROSEMIDE 40 MG TABLET (FP) PO ONE (11:06)
[2024-05-03 16:57] LABS: EPI CELLS 10 /uL (0-25.1); HYALINE CASTS 6 /uL (0-3.1); PH,URINE 5.5 (5.0-8.0); URINE APPEARANCE CLEAR; URINE BACTERIA 148 /uL (0-1359); URINE BILIRUBIN NEGATIVE (NEGATIVE); URINE COLOR YELLOW; URINE GLUCOSE (UA) NEGATIVE (NEGATIVE); URINE KETONE NEGATIVE (NEGATIVE); URINE LEUK ESTERASE 3+ (NEGATIVE); URINE NITRITE NEGATIVE (NEGATIVE); URINE PROTEIN TRACE (NEGATIVE); URINE RBC 12 /uL (0-23.9); URINE UROBILINOGEN 0.2 mg/dL (0.2-1.0); URINE WBC 287 /uL (0-25.8)
[2024-05-04 01:30] VITALS: RESP 18
[2024-05-04 08:57] VITALS: BP 126/42; PULSE 61; TEMP 98
[2024-05-05] MEDS ORDERED: metoPROLOL SUCCINATE 25 MG TAB.SR.24H (FP) PO SCH (10:00)
== END 2024-05-04 13:50 | disposition home health service (06) | DRG 871 ==
LOC: JER 16:07 → JERBED 19:51 → J8W 04-21 23:21 → J4S 04-22 17:27
PROVIDERS: ADMIT Student in an Organized Health Care Education/Training Program; ATTEND Internal Medicine
PROC: 0W9F30Z Drainage of Abdominal Wall with Drainage Device, Percutaneous Approach (ICD-10-PCS; principal; 2024-04-22 15:00)
DX: A41.9 Sepsis, unspecified organism (principal); I50.33 Acute on chronic diastolic (congestive) heart failure; K63.2 Fistula of intestine; E87.1 Hypo-osmolality and hyponatremia; L02.211 Cutaneous abscess of abdominal wall; J96.11 Chronic respiratory failure with hypoxia; I11.0 Hypertensive heart disease with heart failure; I48.0 Paroxysmal atrial fibrillation; E87.5 Hyperkalemia; D50.9 Iron deficiency anemia, unspecified; G47.33 Obstructive sleep apnea (adult) (pediatric); D63.8 Anemia in other chronic diseases classified elsewhere; R82.71 Bacteriuria; E83.42 Hypomagnesemia
CPT/HCPCS: 36415; 74177-TC; 80048; 80053; 81003; 82436; 82533; 82570; 82728; 83010; 83540; 83550; 83605; 83735; 83930; 83935; 84100; 84133; 84155; 84156; 84165; 84300; 85025; 85027; 85610; 85730; 86140; 86850; 86900; 86901; 87040; 87070; 87086; 87186; 87205; 87635; 93005; 93010; 93306-TC; 93970-TC; 94640; 94760; 94761; 97116-GP; 97161-GP; 99285-25; J0131; Q9967

== ENCOUNTER 2024-05-19 13:24 | Inpatient (IN) | payer OTHER ==
[2024-05-19 16:49] LABS: HEMATOCRIT 30.4 % (32.4-45.2); HEMOGLOBIN 9.5 GM/dL (10.7-15.3); MCH 30.1 pg (25.7-33.7); MCHC 31.4 g/dl (32.0-36.0); MEAN CELL VOLUME 95.7 fl (80-96); MEAN PLT VOLUME 9.3 fl (7.5-11.1); PLATELET COUNT 269 10^3/uL (134-434); RBC 3.17 M/mm3 (3.60-5.2); RDW 17.1 % (11.6-15.6); WHITE BLOOD COUNT 12.8 K/mm3 (4.0-10.0)
[2024-05-19 17:24] LABS: POTASSIUM 3.9 mmol/L (3.5-5.1)
[2024-05-19 17:26] LABS: ALBUMIN 3.3 g/dl (3.4-5.0); BLOOD UREA NITROGEN 14.7 mg/dL (7-18); CALCIUM 8.5 mg/dL (8.5-10.1); MAGNESIUM 1.6 mg/dL (1.8-2.4)
[2024-05-19 17:29] LABS: CREATININE 0.6 mg/dL (0.55-1.3)
[2024-05-19 17:31] LABS: BILIRUBIN,TOTAL 0.5 mg/dL (0.2-1); TOT PROT 6.4 g/dl (6.4-8.2)
[2024-05-19 18:25] LABS: ANISOCYTOSIS 3+; MACROCYTOSIS 0; OVALOCYTE 1+; TEAR DROP CELLS 2+
[2024-05-19] MEDS ORDERED: FUROSEMIDE 40 MG TABLET (FP) PO PRN (20:15)
[2024-05-19] MEDS ORDERED: FUROSEMIDE 40 MG TABLET (FP) PO SCH (20:30)
[2024-05-19] MEDS ORDERED: FUROSEMIDE 40 MG TABLET (FP) ONE (21:14)
[2024-05-19] MEDS ORDERED: MAGNESIUM SULFATE IN WATER 2 GM/50 ML IVPB IVPB ONE (21:14)
[2024-05-19] MEDS ORDERED: APIXABAN 2.5 MG TABLET ONE (21:14)
[2024-05-19] MEDS ORDERED: FUROSEMIDE 40 MG/4 ML INJECTABLE VIAL ONE (21:36)
[2024-05-19 21:41] LABS: N-TERMINAL BNP 23160.2 pg/ml (5-450)
[2024-05-19] MEDS: FUROSEMIDE 40 MG/4 ML INJECTABLE VIAL IVPUSH SCH (22:02)
[2024-05-19] MEDS: MAGNESIUM SULFATE IN WATER 2 GM/50 ML IVPB IVPB ONE (22:03)
[2024-05-19] MEDS: APIXABAN 2.5 MG TABLET PO SCH (22:03)
[2024-05-20] MEDS: hydrALAZINE HCL 20 MG/ML VIAL IVPUSH ONE (00:31)
[2024-05-20] MEDS: ACETAMINOPHEN 1000 MG/100 ML BAG IVPB ONE (02:27)
[2024-05-20 02:43] VITALS: BMI 23.9
[2024-05-20] MEDS: FUROSEMIDE 40 MG/4 ML INJECTABLE VIAL IVPUSH SCH (02:59)
[2024-05-20 08:30] LABS: HEMATOCRIT 29.2 % (32.4-45.2); HEMOGLOBIN 9.4 GM/dL (10.7-15.3); MCH 30.4 pg (25.7-33.7); MCHC 32.3 g/dl (32.0-36.0); MEAN CELL VOLUME 94.3 fl (80-96); MEAN PLT VOLUME 9.5 fl (7.5-11.1); PLATELET COUNT 253 10^3/uL (134-434); RBC 3.09 M/mm3 (3.60-5.2); RDW 16.6 % (11.6-15.6); WHITE BLOOD COUNT 11.5 K/mm3 (4.0-10.0)
[2024-05-20 08:50] LABS: POTASSIUM 3.2 mmol/L (3.5-5.1)
[2024-05-20 08:53] LABS: CALCIUM 8.2 mg/dL (8.5-10.1)
[2024-05-20 08:54] LABS: BLOOD UREA NITROGEN 13.3 mg/dL (7-18); MAGNESIUM 1.3 mg/dL (1.8-2.4)
[2024-05-20 08:57] LABS: CREATININE 0.6 mg/dL (0.55-1.3); PHOSPHOROUS 3.9 mg/dL (2.5-4.9)
[2024-05-20 08:59] LABS: TOT PROT 5.8 g/dl (6.4-8.2)
[2024-05-20 09:01] LABS: BILIRUBIN,TOTAL 0.5 mg/dL (0.2-1)
[2024-05-20 09:11] LABS: ERYTHROCYTE SEDIMENTATION RATE 18 mm/hr (0-30)
[2024-05-20] MEDS ORDERED: LISINOPRIL 5 MG TABLET PO SCH (10:00)
[2024-05-20] MEDS: ESCITALOPRAM OXALATE 10 MG TABLET PO SCH (10:36)
[2024-05-20] MEDS: POTASSIUM CHLORIDE ORAL LIQUID 20 MEQ/15 ML PO SCH (10:36)
[2024-05-20] MEDS: LISINOPRIL 20 MG TABLET PO SCH (10:37)
[2024-05-20] MEDS ORDERED: FLU VACCINE (FLULAVAL) PF 45 MCG/0.5 ML SYRINGE 2024-2025 IM ONE (14:00)
[2024-05-20] MEDS ORDERED: MAGNESIUM 2GM/50ML STERILE WATER IVPB IVPB ONE (15:21)
[2024-05-20] MEDS: MAGNESIUM 2GM/50ML STERILE WATER IVPB IVPB ONE (19:50)
[2024-05-20] MEDS: MAGNESIUM OXIDE 400 MG TABLET (FP) PO ONE (19:57)
[2024-05-20] MEDS ORDERED: FUROSEMIDE 40 MG/5 ML UNIT-DOSE CUP PO SCH (22:00)
[2024-05-20] MEDS ORDERED: FUROSEMIDE 40 MG/4 ML INJECTABLE VIAL IVPUSH SCH (22:00)
[2024-05-20] MEDS: ACETAMINOPHEN 500 MG TABLET (FP) PO ONE (23:32)
[2024-05-21] MEDS: FUROSEMIDE 40 MG/5 ML UNIT-DOSE CUP PO SCH (06:42)
[2024-05-21 08:37] LABS: HEMATOCRIT 31.1 % (32.4-45.2); HEMOGLOBIN 9.7 GM/dL (10.7-15.3); MCH 30.1 pg (25.7-33.7); MCHC 31.3 g/dl (32.0-36.0); MEAN CELL VOLUME 96.2 fl (80-96); MEAN PLT VOLUME 9.1 fl (7.5-11.1); PLATELET COUNT 234 10^3/uL (134-434); RBC 3.23 M/mm3 (3.60-5.2); RDW 16.6 % (11.6-15.6)
[2024-05-21 08:46] LABS: POTASSIUM 4.2 mmol/L (3.5-5.1)
[2024-05-21 08:49] LABS: CALCIUM 8.5 mg/dL (8.5-10.1)
[2024-05-21 08:50] LABS: BLOOD UREA NITROGEN 13.5 mg/dL (7-18); MAGNESIUM 1.6 mg/dL (1.8-2.4)
[2024-05-21 08:53] LABS: CREATININE 0.6 mg/dL (0.55-1.3); PHOSPHOROUS 3.8 mg/dL (2.5-4.9)
[2024-05-21 08:54] LABS: BILIRUBIN,TOTAL 0.6 mg/dL (0.2-1)
[2024-05-21 08:55] LABS: TOT PROT 5.9 g/dl (6.4-8.2)
[2024-05-21] MEDS: MAGNESIUM OXIDE 400 MG TABLET (FP) PO ONE (11:01)
[2024-05-21] MEDS: MAGNESIUM 2GM/50ML STERILE WATER IVPB IVPB ONE (11:16)
[2024-05-21] MEDS: EMPAGLIFLOZIN (JARDIANCE) 10 MG TABLET PO SCH (12:50)
[2024-05-21] MEDS: MAGNESIUM OXIDE 400 MG TABLET (FP) PO SCH (21:36)
[2024-05-21] MEDS: ACETAMINOPHEN 500 MG TABLET (FP) PO PRN (22:23)
[2024-05-21] MEDS: POLYETHYLENE GLYCOL (HEALTHYLAX) 3350 17 GM PACKET PO PRN (22:24)
[2024-05-22] MEDS: FUROSEMIDE 40 MG/5 ML UNIT-DOSE CUP PO SCH (06:31)
[2024-05-22 08:31] LABS: HEMATOCRIT 34.6 % (32.4-45.2); HEMOGLOBIN 10.8 GM/dL (10.7-15.3); MCH 30.1 pg (25.7-33.7); MCHC 31.3 g/dl (32.0-36.0); MEAN CELL VOLUME 96.3 fl (80-96); MEAN PLT VOLUME 9.6 fl (7.5-11.1); PLATELET COUNT 306 10^3/uL (134-434); RBC 3.59 M/mm3 (3.60-5.2); RDW 17.3 % (11.6-15.6); WHITE BLOOD COUNT 14.3 K/mm3 (4.0-10.0)
[2024-05-22 08:46] LABS: POTASSIUM 3.8 mmol/L (3.5-5.1)
[2024-05-22 08:50] LABS: CALCIUM 8.3 mg/dL (8.5-10.1)
[2024-05-22 08:52] LABS: ALBUMIN 3.3 g/dl (3.4-5.0); MAGNESIUM 1.7 mg/dL (1.8-2.4)
[2024-05-22 08:54] LABS: CREATININE 0.7 mg/dL (0.55-1.3)
[2024-05-22 08:55] LABS: BILIRUBIN,TOTAL 0.7 mg/dL (0.2-1); TOT PROT 6.5 g/dl (6.4-8.2)
[2024-05-22] MEDS: EMPAGLIFLOZIN (JARDIANCE) 10 MG TABLET PO SCH (12:59)
[2024-05-23 09:27] LABS: BASO % 1.4 % (0-2.0); EOS % 1.8 % (0-4.5); HEMOGLOBIN 10.6 GM/dL (10.7-15.3); LYMPH % 5.4 % (8-40); MCH 29.6 pg (25.7-33.7); MEAN CELL VOLUME 95.3 fl (80-96); MEAN PLT VOLUME 9.9 fl (7.5-11.1); MONO % 3.3 % (3.8-10.2); NEUT % 88.1 % (42.8-82.8); PLATELET COUNT 264 10^3/uL (134-434); RBC 3.57 M/mm3 (3.60-5.2); RDW 16.9 % (11.6-15.6); WHITE BLOOD COUNT 12.4 K/mm3 (4.0-10.0)
[2024-05-23 09:48] LABS: POTASSIUM 3.6 mmol/L (3.5-5.1)
[2024-05-23 10:01] LABS: CALCIUM 8.7 mg/dL (8.5-10.1)
[2024-05-23 10:02] LABS: CREATININE 0.6 mg/dL (0.55-1.3)
[2024-05-24 08:52] VITALS: BP 134/53; PULSE 68; RESP 18; TEMP 98.4
[2024-05-24 09:02] LABS: HEMATOCRIT 31.1 % (32.4-45.2); HEMOGLOBIN 9.6 GM/dL (10.7-15.3); MCH 29.4 pg (25.7-33.7); MCHC 30.8 g/dl (32.0-36.0); MEAN CELL VOLUME 95.4 fl (80-96); MEAN PLT VOLUME 9.5 fl (7.5-11.1); PLATELET COUNT 254 10^3/uL (134-434); RBC 3.26 M/mm3 (3.60-5.2); RDW 17.1 % (11.6-15.6); WHITE BLOOD COUNT 12.5 K/mm3 (4.0-10.0)
[2024-05-24 09:19] LABS: POTASSIUM 4.5 mmol/L (3.5-5.1)
[2024-05-24 09:21] LABS: BLOOD UREA NITROGEN 20.7 mg/dL (7-18); CALCIUM 8.3 mg/dL (8.5-10.1)
[2024-05-24 09:25] LABS: CREATININE 0.7 mg/dL (0.55-1.3)
[2024-05-24 10:55] LABS: ANISOCYTOSIS 0; HELMET CELLS 0; HOWELL-JOLLY BODIES 0; MACROCYTOSIS 0; OVALOCYTE 0; ROULEAU 0; SICKELED CELLS 0; TARGET CELLS 0; TEAR DROP CELLS 0; TOXIC GRANULATION 0
== END 2024-05-24 14:20 | disposition home or self-care (01) | DRG 291 ==
LOC: JER 13:24 → JERBED 18:34 → J4S 23:57
PROVIDERS: ADMIT Internal Medicine
DX: I11.0 Hypertensive heart disease with heart failure (principal); I50.33 Acute on chronic diastolic (congestive) heart failure; E87.1 Hypo-osmolality and hyponatremia; I48.19 Other persistent atrial fibrillation; K63.2 Fistula of intestine; I31.39 Other pericardial effusion (noninflammatory); G47.33 Obstructive sleep apnea (adult) (pediatric); E03.9 Hypothyroidism, unspecified; J43.9 Emphysema, unspecified; I16.0 Hypertensive urgency; E83.42 Hypomagnesemia; Z99.81 Dependence on supplemental oxygen; D64.9 Anemia, unspecified; R16.2 Hepatomegaly with splenomegaly, not elsewhere classified
CPT/HCPCS: 36415; 71045-TC-FY; 71260-TC; 74177-TC; 80048; 80053; 83735; 83880; 84100; 84484; 85025; 85027; 85379; 85651; 86140; 93005; 93010; 93306-TC; 93970-TC; 97116-GP; 97161-GP; 99285-25; J0131; Q9967